=== PATIENT | female | born 1960 | race African-American/Black ===

== ENCOUNTER → 2022-08-11 09:52 | Outpatient (BNVA) | payer OTHER, SELFPAY | PROVIDERS: PCP Internal Medicine; Visit Provider Physician Assistant | DX: Z13.89 Encounter for screening for other disorder (principal) ==

== ENCOUNTER 2022-10-03 21:03 | Inpatient (IN) | payer OTHER, SELFPAY ==
--- NOTE | 2022-10-03 | ECG_ITS ---
Test Reason : htn Blood Pressure : / mmHG Vent. Rate : 070 BPM Atrial Rate : 070 BPM P-R Int : 160 ms QRS Dur : 086 ms QT Int : 408 ms P-R-T Axes : 065 -42 074 degrees QTc Int : 440 ms Poor data quality Normal sinus rhythm Left axis deviation Minimal voltage criteria for LVH, may be normal variant ( R in aVL ) Nonspecific T wave abnormality Abnormal ECG No previous ECGs available Referred By: Farhat Christopher Electronically Signed By:Terence Garcia
[2022-10-03] MEDS: traZODone HCL 50 MG TABLET PO (22:34)
[2022-10-03] MEDS: clonazePAM 0.5 MG TABLET PO (22:34)
[2022-10-03] MEDS: OLANZapine 5 MG TABLET PO (22:34)
[2022-10-03] MEDS: Gabapentin 400 MG CAPSULE PO (22:34)
[2022-10-03] MEDS: Acetaminophen 325 MG TABLET 650 MG PO (22:40)
[2022-10-03 23:06] VITALS: BP 158/85; PULSE 71; RESP 18; TEMP 36.3; O2SAT 97
[2022-10-03 23:07] VITALS: BMI 31.1
--- NOTE | 2022-10-04 00:52 | PC.ADMIT ---
Admitted these 62 yrs. old female per stretcher accompanied by ambulance staff from [facility] w/ presenting problem of suicidal ideation, depression and command auditory hallucinations. She reports experiencing command auditory hallucinations telling her to scratch herself and cut herself . Pt. arrived in the unit at 20:15h and signed the CV. Pt. is oriented to the unit, staff, room and room mate. Skin assessment done w/multiple scab areas to bilateral extremities w/ dressing on and scab area to mid abdomen. Pt has +1 pedal edema. Pt wears eyeglasses for reading and said she has [place] to both ears. Pt denies SOB.Pt. c/o headache and rated it as 8/10, given Tylenol 650 mg w/ some effect, during reassessment pt. said it went down to 3/10. Pt. given also all her HS meds and med compliant. Pt denies SI/HI/anxiety, depression, AVH and feels safe in the unit. Pt is alert and oriented x4, memory appears intact. Pt. has hx. of HTN, CKD, Bilateral Achilles tendonitis, Repeated falls and Psycho genetic non epileptic seizures.Dr.T Christopher informed of the admission w/ orders in.EKG done w/ results in the chart. Pt. maintained on 5 mins. checks. Pt. has allergies to Amoxicillin,Lisinopril, Latex and strawberries.Pt. is pleasant and cooperative w/ admission process and signed all the consents for release of information. We'll continue to monitor patient.
[2022-10-04 06:00] VITALS: BP 128/68; PULSE 71; RESP 18; TEMP 36; O2SAT 97
[2022-10-04 08:50] LABS: Alanine Aminotransferase 36 U/L (0-31); Albumin Level 3.9 g/dL (3.5-5.0); Alkaline Phosphatase 82 U/L (39-117); Anion Gap 15 (12-20); Aspartate Amino Transferase 40 U/L (5-31); Bilirubin Total 0.2 mg/dL (0.0-1.0); Blood Urea Nitrogen 7 mg/dL (9-16); Calcium 9.3 mg/dL (8.4-10.2); Carbon Dioxide 25 mmol/L (22-29); Chloride 109 mmol/L (96-108); Cholesterol 203 mg/dL; Estimated Glomerular Filt Rate 48; Glucose Fasting 96 mg/dL (60-99); HDL Cholesterol 41 mg/dL; LDL Cholesterol Calculated 111 mg/dl; Potassium 4.5 mmol/L (3.3-5.1); Sodium 144 mmol/L (135-145); Total Protein 6.5 g/dL (6.5-8.0); Triglycerides 259 mg/dL
[2022-10-04] MEDS: amLODIPine Besylate 5 MG TABLET PO (09:08)
[2022-10-04] MEDS: clonazePAM 0.5 MG TABLET PO ×3 (09:08→21:32)
[2022-10-04] MEDS: Venlafaxine HCl ER 75 MG CAP.ER.24H PO (09:09)
[2022-10-04] MEDS: Acetaminophen 325 MG TABLET 650 MG PO ×2 (09:09→21:32)
[2022-10-04] MEDS: Gabapentin 400 MG CAPSULE PO ×2 (09:09→21:32)
[2022-10-04 09:16] LABS: TSH reflex Free T4 3.34 uIU/mL (0.32-4.0); Vitamin B12 500 pg/mL (200-900)
[2022-10-04 10:00] VITALS: BP 128/68; PULSE 71; RESP 18; TEMP 36; O2SAT 97
--- NOTE | 2022-10-04 12:07 | P.HPPS_ITS ---
HPI Date of Service: 10/04/22 Chief Complaint: Hallucinations/Psudos Sources of Information: patient interviewed, chart reviewed and crisis/core team assessment reviewed HPI Subjective Notes: Haque Warning and Conditional Voluntary Narrative: The patient is a 62-year-old female, , mother of 2 adult children on disability, living with her with good social support transferred from another hospital for continuation of treatment. The patient was initially admitted the rehab facility and over there she had an episode of fainting and 7 seizures. She was rushed to the emergency room assessed and admitted into Medicine for a full workout. She stayed 16 days at [facility] and whole workout for psychiatry and Medicine was done. There is no evidence of seizures mostly pseudo-seizures. When she was in the unit she reported auditory hallucinations commanding her to hurt herself and exacerbation of depression with suicidal ideation, unable to contract for safety. A Section 12 was issued and a bed search was done, eventually transferred to this facility for psychiatric stabilization. On intake interview, the patient complained that she felt triggered by her who she states that she is an alcoholic. She stated that when she was growing up her father was a violent alcoholic. She admitted that she had been hearing voices for years and she has received several outpatient providers in th e past with several trials of medication. Currently she feels much better, stated that she does not have active suicidal ideation but a sporadic feelings of hurting herself. She refused to give us consent to contact her , she reports improvement of dysphoria and no active auditory hallucinations at this moment. We will try to gather more collateral information. Past Psychiatric History: The patient admitted that her 1st psychiatric contact was 10 years ago and she was eventually diagnosed with bipolar type 2. She had been fully with several outpatient provider such as [facility] and other clinics. 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 Medical Evaluation Reviewed: Yes [facility] Medical History Achilles tendonitis, bilateral Back pain of lumbar region with sciatica Bilateral plantar fasciitis CKD (chronic kidney disease), stage III Depression with anxiety HTN (hypertension) Psychiatric pseudoseizure Diagnostics Vital Signs (24Hr): Vital Signs - 24 hr 10/03/22 23:06 10/04/22 06:00 Temperature 97.3 F 96.8 F Pulse Rate 71 71 Respiratory Rate 18 18 Blood Pressure 158/85 H 128/68 Pulse Oximetry 97 97 Oxygen Delivery Method Room Air Room Air BMI result Body Mass Index 31.1 Labs 10/04/22 08:14 Labs: Laboratory Results - last 48 hr 10/04/22 08:14 Sodium 144 Potassium 4.5 Chloride 109 H Carbon Dioxide 25 Anion Gap 15 BUN 7 L Creatinine 1.15 Estim Creat Clear Calc 50.0 Estimated GFR 48 Fasting Glucose 96 Calcium 9.3 Total Bilirubin 0.2 AST 40 H ALT 36 H Alkaline Phosphatase 82 Total Protein 6.5 Albumin 3.9 Triglycerides 259 Cholesterol 203 LDL Cholesterol, Calc 111 HDL Cholesterol 41 Vitamin B12 500 Folate 11.0 TSH 3.34 Meds/Allergies Allergies Allergies Allergy/AdvReac Type Severity Reaction Status Date / Time lisinopril AdvReac Mild Cough Verified 10/03/22 20:39 amoxicillin AdvReac Diarrhea Verified 10/03/22 20:39 Mental Status Exam Mental Status Exam Patient Appearance: Well Grooomed and Appropriate Patient Orientation: Person, Place and Situation Level of Consciousness: Awake and Appropriate Patient Behavior: Appropriate, Guarded and Passive Mood Description: Withdrawn Affect Description: Constricted Patient Cognition Impaired: Yes Ability to Follow Directions: Good Speech Pattern: Clear Hallucinations: Auditory Delusions: Ideas of Reference Thought Process: Distracted and Linear Thought Content: positive for [place] and positive for Circumstantial Judgement: Poor Assessment & Plan Assessment & Plan (1) Bipolar 2 disorder: Status: Acute Code(s): F31.81 - Bipolar II disorder (2) Personality disorder: Status: Acute Code(s): F60.9 - Personality disorder, unspecified Plan The patient is a middle-aged female with a past history of bipo lar disorder, t.i.d., past trauma depression with several prior admissions into the hospital, transferred from another hospital for pseudoseizures, auditory hallucinations commanding to hurt herself and if progression. Plan 1. Gather collateral information. 2. Continue 50 minutes checks. 3. Continue with Effexor Zyprexa and other psychotropics. 4. Continue medical workout. 5. Reassessment with results. Patient educated on: diagnosis Informed Consent: understands Reason for continued inpatient stay Substantial Risk for: harm to self, inability to function, rapid decompensation and med/psych decompensation Statement Statement: I have reviewed the history and physical and performed a pertinent examination on my patient. No changes have occurred unless specified. If the History and Physical was not performed prior to admission, the Hospitalist's service will be consulted for completing the admission physical. Time Spent With Patient Time: Total time managing care of this patient today __45__ minutes.
[2022-10-04] MEDS: OLANZapine 2.5 MG TABLET PO (12:34)
--- NOTE | 2022-10-04 13:44 | HO.PM.IMCN ---
History of Present Illness Data of Consult Service Date: 10/04/22 Requesting physician: Rock Martinez Primary Care Provider: Shreya Stanley MD [facility] Reason for consult: medical H&P 62 year old female with history of htn, pseudoseizures, depression/anxiety, Achilles tendonitis, plantar fasciitis admitted to psychiatry with consult placed to medicine for medical H&P. She was admitted to [facility] after being discharged from [facility] where she was admitted following a syncopal episode with recurrent falls and concern for seizure. While at [facility], had extensive neuro workup with negative head ct, brain cta, MRI brain, normal eeg. Evaluated by neurology. Clinical picture highly suspicious for pseudoseizures (lasting 30-60 seconds and patient opens eyes and blinks during seizure per [facility] notes). Recommended dc'ing amantadine and depakote, started gabapentin and venlafaxine. She denies any ongoing confusion or seizures. Has a headache. Continues to experience gait imbalance. Refuses to use a walker. She has no other complaints at this time. Review of Systems Review of Systems: General: No fevers, malaise, unintentional weight loss HEENT: No blurred vision, diplopia. No sore throat, nasal congestion, rhinorrhea, sinus pain, ear pain Cardiovascular: No chest pain, palpitations, or leg edema Respiratory: No shortness of breath, wheezing, cough GI: No abdominal pain, nausea, vomiting, diarrhea, constipation, melena, hematochezia : No dysuria, hematuria, increased urinary frequency, decreased urinary output MSK: No myalgia, back pain Neuro: +gait imbalance, +headache. No weakness, paresthesias Skin: No rashes or lesions PENDING SALE TO [facility] Medical History Achilles tendonitis, bilateral Back pain of lumbar region with sciatica Bilateral plantar fasciitis CKD (chronic kidney disease), stage III Depression with anxiety HTN (hypertension) Psychiatric pseudoseizure Social History Household Members: Spouse Housing: House Do you presently have visiting nurse or other home services: No Patient Tobacco Use Status: Never used Tobacco Smoked in Last 30 Days: No Patient Interested in Nicotine Replacement: No Patient Given Instructions on How to Stop Smoking: No Second Hand Smoke Exposure: No Use of substances other than those prescribed or required for medical reasons: No Currently Displaying Signs/Symptoms of Drug Intoxication Withdrawal: No Any prior treatment program specific to substance use: No Have you been hit, kicked, punched, or otherwise hurt by someone within the past year? If so, by whom?: No Do you feel safe in your current relationship?: Yes Is there a partner from a previous relationship who is making you feel unsafe now?: No Are you made to feel afraid or neglected: No Advance Directives: No Advance Directives Information Provided: No Do you have thoughts of harming others: None Do you have a plan to hurt others: No Plan Recently lost weight without trying: No How much weight loss: Not applicable Eating poorly because of decreased appetite: No Nutrition screen score: 0 Nutrition Risks: Binging/Purging Patient : No : No Poor oral hygiene: No Meds Allergies Allergy/AdvReac Type Severity Reaction Status Date / Time lisinopril AdvReac Mild Cough Verified 10/03/22 20:39 amoxicillin AdvReac Diarrhea Verified 10/03/22 20:39 Active Medications: Current Medications Acetaminophen (Acetaminophen 325 Mg Tablet) 650 mg PO Q6H PRN PRN Reason: Headache/Pain Mild Scale (1-3) Last Admin: 10/04/22 09:09 Dose: 650 mg Al Hydroxide/Mg Hydroxide (Magnesium Hydrox/Alum Hydrox 30 Ml Oral.Susp) 30 ml PO Q6H PRN PRN Reason: Heartburn/Nausea Amlodipine Besylate (Amlodipine Besylate 5 Mg Tablet) 5 mg PO DAILY [facility]; Protocol Last Admin: 10/04/22 09:08 Dose: 5 mg Clonazepam (Clonazepam 0.5 Mg Tablet) 0.5 mg PO TID [facility] Last Admin: 10/04/22 09:08 Dose: 0.5 mg Gabapentin (Gabapentin 400 Mg Capsule) 400 mg PO BID [facility] Last Admin: 10/04/22 09:09 Dose: 400 mg Hydroxyzine HCl (Hydroxyzine Hcl 25 Mg Tablet) 25 mg PO Q6H PRN PRN Reason: Anxiety Magnesium Hydroxide (Milk Of Magnesia 30 Ml Oral.Susp) 30 ml PO DAILY PRN PRN Reason: Constipation Olanzapine (Olanzapine 5 Mg Tablet) 5 mg PO BEDTIME [facility] Last Admin: 10/03/22 22:47 Dose: Not Given Olanzapine (Olanzapine 2.5 Mg Tablet) 2.5 mg PO Q6H PRN PRN Reason: Psychosis Last Admin: 10/04/22 12:34 Dose: 2.5 mg Trazodone HCl (Trazodone Hcl 50 Mg Tablet) 50 mg PO BEDTIME [facility] Last Admin: 10/03/22 22:47 Dose: Not Given Venlafaxine HCl (Venlafaxine Hcl Er 75 Mg Cap.Er.24h) 75 mg PO DAILY [facility] Last Admin: 10/04/22 09:09 Dose: 75 mg Physical Exam Vital Signs and Narrative: Vital Signs: Last Vital Signs Temp 96.8 F 10/04/22 10:00 Pulse 71 10/04/22 10:00 Resp 18 10/04/22 10:00 BP 128/68 10/04/22 10:00 Pulse Ox 97 10/04/22 10:00 O2 Del Method Room Air 10/04/22 10:00 BMI result Body Mass Index 31.1 Constitutional - Awake and Alert, No apparent distress Eyes - PERRLA, EOMI Cardiovascular - S1S2, RRR, No edema Respiratory - Normal lung expansion, Normal respiratory effort, No respiratory distress, CTA bilaterally Gastrointestinal - NT / ND; +BS; No rebound or guarding Extremities - no calf tenderness bilaterally, no swelling Musculoskeletal - Normal inspection, normal ROM Skin - Warm/Dry Neurological - Alert & oriented x3, tongue fasciculations, unable to track when examining EOMs , 5/5 strength BUE and BLE Psychological - Appropriate affect Results Labs 10/04/22 08:14 Labs: Laboratory Results - last 24 hr 10/04/22 08:14 Anion Gap 15 Estim Creat Clear Calc 50.0 Estimated GFR 48 Fasting Glucose 96 Calcium 9.3 Total Bilirubin 0.2 AST 40 H ALT 36 H Alkaline Phosphatase 82 Total Protein 6.5 Albumin 3.9 Triglycerides 259 Cholesterol 203 LDL Cholesterol, Calc 111 HDL Cholesterol 41 Vitamin B12 500 Folate 11.0 TSH 3.34 Assessment and Plan (1) Routine medical exam: Status: Acute Plan 62 year old female with history of htn, pseudoseizures, depression/anxiety, Achilles tendonitis, plantar fasciitis admitted to psychiatry with consult placed to medicine for medical H&P. #Mood disorder -plan per psychiatry #Abnormal cranial nerve exam -pt noted to have tongue fasciculations and abn EOMs -States started after new med administration -Concern for TD, psychiatrist notified -Can consider other movement disorder with neurology consult if needed given gait abnormality as well -Head CT and brain MRI both normal at [facility] #Gait imbalance -see above -recommended walker but patient refuses -Recommend PT consult #Pseudoseizures -seizure like activity as outlined in [facility] H&P not consistent with epileptic seizure -Head Ct, brain MRi, EEG WNL -evaluated by neuro at [facility] -Continue venlaxine and gabapenting per neuro recs from [facility] #HTN -continue home meds #Achilles tendonitis/plantar fasciitis -tylenol prn -outpt follow up Thank you for allowing me to participate in this consult. Signing off at this time. Please do not hesitate to call for further questions. Time Spent With Patient Time: Total time managing care of this patient today ____ minutes.
[2022-10-04 19:30] VITALS: BP 125/82; PULSE 85; RESP 18; TEMP 36.1; O2SAT 99
[2022-10-04] MEDS: traZODone HCL 50 MG TABLET PO (21:32)
[2022-10-04] MEDS: OLANZapine 5 MG TABLET PO (21:32)
[2022-10-05 06:00] VITALS: BP 130/80; PULSE 98; RESP 18; TEMP 37; O2SAT 98
[2022-10-05 07:00] VITALS: BMI 30.8
[2022-10-05] MEDS: clonazePAM 0.5 MG TABLET PO ×3 (09:45→21:39)
[2022-10-05] MEDS: Venlafaxine HCl ER 75 MG CAP.ER.24H PO (09:45)
[2022-10-05] MEDS: Gabapentin 400 MG CAPSULE PO ×2 (09:45→21:39)
[2022-10-05] MEDS: Acetaminophen 325 MG TABLET 650 MG PO ×2 (09:48→21:40)
[2022-10-05] MEDS: amantadine HCL 100 MG CAPSULE PO (09:49)
[2022-10-05] MEDS: amLODIPine Besylate 5 MG TABLET PO (09:49)
--- NOTE | 2022-10-05 14:59 | P.PNPSI_ITS ---
Subjective Subjective Date of Service: 10/05/22 Reason For Visit: Hallucinations/Psudos Subjective Notes: Conditional Voluntary Interim History: The nursing staff reported the patient had been alert oriented x4, yesterday her visited and she was later upset with self-harming behavior but easily redirectable. On interview the patient denies new symptoms she is attention seeking at times no suicidal thoughts. WE discussed options and she agreed to increase Zypprexa. Mental Status Exam Mental Status Exam Patient Appearance: Well Grooomed and Appropriate Patient Orientation: Person and Situation Level of Consciousness: Awake and Appropriate Patient Behavior: Guarded and Passive Mood Description: Withdrawn Affect Description: Constricted Patient Cognition Impaired: Yes Ability to Follow Directions: Good Speech Pattern: Clear Hallucinations: None Delusions: Not Present Thought Process: Linear Thought Content: positive for [place] and positive for Circumstantial Judgement: Fair Diagnostics Vital Signs (24Hr): Vital Signs - 24 hr 10/04/22 19:30 10/05/22 06:00 Temperature 96.9 F 98.6 F Pulse Rate 85 98 Respiratory Rate 18 18 Blood Pressure 125/82 130/80 Pulse Oximetry 99 98 Oxygen Delivery Method Room Air Room Air BMI result Body Mass Index 31.1 Labs 10/04/22 08:14 Labs: Laboratory Results - last 48 hr 10/04/22 08:14 Sodium 144 Potassium 4.5 Chloride 109 H Carbon Dioxide 25 Anion Gap 15 BUN 7 L Creatinine 1.15 Estim Creat Clear Calc 50.0 Estimated GFR 48 Fasting Glucose 96 Calcium 9.3 Total Bilirubin 0.2 AST 40 H ALT 36 H Alkaline Phosphatase 82 Total Protein 6.5 Albumin 3.9 Triglycerides 259 Cholesterol 203 LDL Cholesterol, Calc 111 HDL Cholesterol 41 Vitamin B12 500 Folate 11.0 TSH 3.34 Medications Medications Current Medications Acetaminophen (Acetaminophen 325 Mg Tablet) 650 mg PO Q6H PRN PRN Reason: Headache/Pain Mild Scale (1-3) Last Admin: 10/05/22 09:48 Dose: 650 mg Al Hydroxide/Mg Hydroxide (Magnesium Hydrox/Alum Hydrox 30 Ml Oral.Susp) 30 ml PO Q6H PRN PRN Reason: Heartburn/Nausea Amantadine HCl (Amantadine Hcl 100 Mg Capsule) 100 mg PO DAILY [facility] Last Admin: 10/05/22 09:49 Dose: 100 mg Amlodipine Besylate (Amlodipine Besylate 5 Mg Tablet) 5 mg PO DAILY [facility]; Protocol Last Admin: 10/05/22 09:49 Dose: 5 mg Clonazepam (Clonazepam 0.5 Mg Tablet) 0.5 mg PO TID [facility] Last Admin: 10/05/22 09:45 Dose: 0.5 mg Gabapentin (Gabapentin 400 Mg Capsule) 400 mg PO BID [facility] Last Admin: 10/05/22 09:45 Dose: 400 mg Hydroxyzine HCl (Hydroxyzine Hcl 25 Mg Tablet) 25 mg PO Q6H PRN PRN Reason: Anxiety Magnesium Hydroxide (Milk Of Magnesia 30 Ml Oral.Susp) 30 ml PO DAILY PRN PRN Reason: Constipation Olanzapine (Olanzapine 5 Mg Tablet) 5 mg PO BEDTIME [facility] Last Admin: 10/04/22 21:32 Dose: 5 mg Olanzapine (Olanzapine 2.5 Mg Tablet) 2.5 mg PO Q6H PRN PRN Reason: Psychosis Last Admin: 10/04/22 12:34 Dose: 2.5 mg Trazodone HCl (Trazodone Hcl 50 Mg Tablet) 50 mg PO BEDTIME [facility] Last Admin: 10/04/22 21:32 Dose: 50 mg Venlafaxine HCl (Venlafaxine Hcl Er 75 Mg Cap.Er.24h) 75 mg PO DAILY [facility] Last Admin: 10/05/22 09:45 Dose: 75 mg Allergies Allergies Allergy/AdvReac Type Severity Reaction Status Date / Time lisinopril AdvReac Mild Cough Verified 10/03/22 20:39 amoxicillin AdvReac Diarrhea Verified 10/03/22 20:39 Assessment & Plan Assessment & Plan (1) Bipolar 2 disorder: Status: Acute Code(s): F31.81 - Bipolar II disorder (2) Personality disorder: Status: Acute Code(s): F60.9 - Personality disorder, unspecified Plan 62 year old female with history of htn, pseudoseizures, depression/anxiety, Achilles tendonitis, plantar fasciitis admitted to psychiatry with consult placed to medicine for medical H&P. #Mood disorder -plan per psychiatry #Abnormal cranial nerve exam -pt noted to have tongue fasciculations and abn EOMs -States started after new med administration -Concern for TD, psychiatrist notified -Can consider other movement disorder with neurology consult if needed given gait abnormality as well -Head CT and brain MRI both normal at [facility] #Gait imbalance -see above -recommended walker but patient refuses -Recommend PT consult #Pseudoseizures -seizure like activity as outlined in [facility] H&P not consistent with epileptic seizure -Head Ct, brain MRi, EEG WNL -evaluated by neuro at [facility] -Continue venlaxine and gabapenting per neuro recs from [facility] #HTN -continue home meds #Achilles tendonitis/plantar fasciitis -tylenol prn -outpt follow up Thank you for allowing me to participate in this consult. Signing off at this time. Please do not hesitate to call for further questions. Plan: Increase Zyprexa on 10/05 Reason for continued inpatient stay Substantial Risk for: inability to function, rapid decompensation and med/psych decompensation Time Spent With Patient Time: Total time managing care of this patient today __20__ minutes.
[2022-10-05] MEDS: Milk of Magnesia 30 ML ORAL.SUSP PO (17:40)
[2022-10-05 18:00] VITALS: BP 134/91; PULSE 90; RESP 18; TEMP 36.2; O2SAT 98
[2022-10-05] MEDS: OLANZapine 7.5 MG TABLET PO (21:40)
[2022-10-05] MEDS: traZODone HCL 50 MG TABLET PO (21:40)
[2022-10-05] MEDS: hydrOXYzine HCL 25 MG TABLET PO (21:41)
[2022-10-06 08:20] VITALS: BP 125/58; PULSE 74; RESP 18; TEMP 36.6; O2SAT 98
[2022-10-06] MEDS: amantadine HCL 100 MG CAPSULE PO (09:33)
[2022-10-06] MEDS: Venlafaxine HCl ER 75 MG CAP.ER.24H PO (09:33)
[2022-10-06] MEDS: Acetaminophen 325 MG TABLET 650 MG PO ×2 (09:33→17:44)
[2022-10-06] MEDS: Gabapentin 400 MG CAPSULE PO ×2 (09:33→21:08)
[2022-10-06] MEDS: amLODIPine Besylate 5 MG TABLET PO (09:33)
[2022-10-06] MEDS: clonazePAM 0.5 MG TABLET PO ×3 (09:33→21:09)
[2022-10-06] MEDS: OLANZapine 2.5 MG TABLET PO (12:14)
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
[2022-10-06 20:30] VITALS: BP 124/78; PULSE 72; RESP 18; TEMP 36.3; O2SAT 98
[2022-10-06] MEDS: OLANZapine 7.5 MG TABLET PO (21:08)
[2022-10-06] MEDS: traZODone HCL 50 MG TABLET PO (21:09)
[2022-10-07 08:00] VITALS: BP 131/67; PULSE 75; RESP 18; TEMP 36.1; O2SAT 99
[2022-10-07] MEDS: clonazePAM 0.5 MG TABLET PO ×3 (08:00→21:12)
[2022-10-07] MEDS: Venlafaxine HCl ER 75 MG CAP.ER.24H PO (08:00)
[2022-10-07] MEDS: amLODIPine Besylate 5 MG TABLET PO (08:00)
[2022-10-07] MEDS: Gabapentin 400 MG CAPSULE PO ×2 (08:01→21:12)
[2022-10-07] MEDS: amantadine HCL 100 MG CAPSULE PO (08:01)
[2022-10-07] MEDS: Acetaminophen 325 MG TABLET 650 MG PO ×2 (08:19→21:12)
--- NOTE | 2022-10-07 17:21 | HO.PSYCHPN ---
Subjective Subjective Date of Service: 10/07/22 Reason For Visit: Hallucinations/Psudos Subjective Notes: Conditional Voluntary Interim History: Pt reports continues to be a trigger but she wants to be with him. Pt reports tells her she can go home and continue OP tx which pt experiences as minimizing the severity of her depression. We discussed BPD traits in sense of fear of abandonment, not being in center of attention, multiple triggers with self harm behaviors that are not reflection of true suicidality. Review of Systems Review of Systems General: No fevers, malaise, unintentional weight loss HEENT: No blurred vision, diplopia. No sore throat, nasal congestion, rhinorrhea, sinus pain, ear pain Cardiovascular: No chest pain, palpitations, or leg edema Respiratory: No shortness of breath, wheezing, cough GI: No abdominal pain, nausea, vomiting, diarrhea, constipation, melena, hematochezia : No dysuria, hematuria, increased urinary frequency, decreased urinary output MSK: No myalgia, back pain Neuro: +gait imbalance, +headache. No weakness, paresthesias Skin: No rashes or lesions Mental Status Exam Mental Status Exam Patient Appearance: Well Grooomed and Appropriate Patient Orientation: Person and Situation Level of Consciousness: Awake and Appropriate Patient Behavior: Guarded and Passive Mood Description: Withdrawn Affect Description: Constricted Patient Cognition Impaired: Yes Ability to Follow Directions: Good Speech Pattern: Clear Diagnostics Vital Signs (24Hr): Vital Signs - 24 hr 10/06/22 20:30 10/07/22 08:00 Temperature 97.4 F 97.0 F Pulse Rate 72 75 Respiratory Rate 18 18 Blood Pressure 124/78 131/67 Pulse Oximetry 98 99 Oxygen Delivery Method Room Air Room Air BMI result Body Mass Index 30.8 Labs 10/04/22 08:14 Medications Medications Current Medications Acetaminophen (Acetaminophen 325 Mg Tablet) 650 mg PO Q6H PRN PRN Reason: Headache/Pain Mild Scale (1-3) Last Admin: 10/07/22 08:19 Dose: 650 mg Al Hydroxide/Mg Hydroxide (Magnesium Hydrox/Alum Hydrox 30 Ml Oral.Susp) 30 ml PO Q6H PRN PRN Reason: Heartburn/Nausea Amantadine HCl (Amantadine Hcl 100 Mg Capsule) 100 mg PO DAILY [facility] Last Admin: 10/07/22 08:01 Dose: 100 mg Amlodipine Besylate (Amlodipine Besylate 5 Mg Tablet) 5 mg PO DAILY [facility]; Protocol Last Admin: 10/07/22 08:00 Dose: 5 mg Clonazepam (Clonazepam 0.5 Mg Tablet) 0.5 mg PO TID [facility] Last Admin: 10/07/22 14:33 Dose: 0.5 mg Gabapentin (Gabapentin 400 Mg Capsule) 400 mg PO BID [facility] Last Admin: 10/07/22 08:01 Dose: 400 mg Hydroxyzine HCl (Hydroxyzine Hcl 25 Mg Tablet) 25 mg PO Q6H PRN PRN Reason: Anxiety Last Admin: 10/05/22 21:41 Dose: 25 mg Magnesium Hydroxide (Milk Of Magnesia 30 Ml Oral.Susp) 30 ml PO DAILY PRN PRN Reason: Constipation Last Admin: 10/05/22 17:40 Dose: 30 ml Olanzapine (Olanzapine 2.5 Mg Tablet) 2.5 mg PO Q6H PRN PRN Reason: Psychosis Last Admin: 10/06/22 12:14 Dose: 2.5 mg Olanzapine (Olanzapine 7.5 Mg Tablet) 7.5 mg PO BEDTIME [facility] Last Admin: 10/06/22 21:08 Dose: 7.5 mg Trazodone HCl (Trazodone Hcl 50 Mg Tablet) 50 mg PO BEDTIME [facility] Last Admin: 10/06/22 21:09 Dose: 50 mg Venlafaxine HCl (Venlafaxine Hcl Er 75 Mg Cap.Er.24h) 75 mg PO DAILY [facility] Last Admin: 10/07/22 08:00 Dose: 75 mg Allergies Allergies Allergy/AdvReac Type Severity Reaction Status Date / Time lisinopril AdvReac Mild Cough Verified 10/03/22 20:39 amoxicillin AdvReac Diarrhea Verified 10/03/22 20:39 Assessment & Plan Assessment & Plan (1) Bipolar 2 disorder: Status: Acute Code(s): F31.81 - Bipolar II disorder (2) Personality disorder: Status: Acute Code(s): F60.9 - Personality disorder, unspecified Plan 62 year old female with history of htn, pseudoseizures, depression/anxiety, Achilles tendonitis, plantar fasciitis admitted to psychiatry with consult placed to medicine for medical H&P. #Mood disorder -plan per psychiatry #Abnormal cranial nerve exam -pt noted to have tongue fasciculations and abn EOMs -States started after new med administration -Concern for TD, psychiatrist notified -Can consider other movement disorder with neurology consult if needed given gait abnormality as well -Head CT and brain MRI both normal at [facility] #Gait imbalance -see above -recommended walker but patient refuses -Recommend PT consult #Pseudoseizures -seizure like activity as outlined in [facility] H&P not consistent with epileptic seizure -Head Ct, brain MRi, EEG WNL -evaluated by neuro at [facility] -Continue venlaxine and gabapenting per neuro recs from [facility] #HTN -continue home meds #Achilles tendonitis/plantar fasciitis -tylenol prn -outpt follow up Thank you for allowing me to participate in this consult. Signing off at this time. Please do not hesitate to call for further questions. Plan: 10/06 continue tx. 10/07 continue tx. Reason for continued inpatient stay Substantial Risk for: inability to function Time Spent With Patient Time: Total time managing care of this patient today ____ minutes.
[2022-10-07 19:30] VITALS: BP 160/75; PULSE 77; RESP 18; TEMP 36.2; O2SAT 98
[2022-10-07] MEDS: traZODone HCL 50 MG TABLET PO (21:12)
[2022-10-07] MEDS: OLANZapine 7.5 MG TABLET PO (21:12)
[2022-10-08 08:15] VITALS: BP 128/67; PULSE 86; RESP 20; TEMP 36.1; O2SAT 96
[2022-10-08] MEDS: amLODIPine Besylate 5 MG TABLET PO (08:17)
[2022-10-08] MEDS: Venlafaxine HCl ER 75 MG CAP.ER.24H PO (08:17)
[2022-10-08] MEDS: amantadine HCL 100 MG CAPSULE PO (08:18)
[2022-10-08] MEDS: clonazePAM 0.5 MG TABLET PO ×2 (08:18→16:17)
[2022-10-08] MEDS: Gabapentin 400 MG CAPSULE PO ×2 (08:18→21:38)
[2022-10-08] MEDS: Acetaminophen 325 MG TABLET 650 MG PO ×2 (09:07→21:38)
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
[2022-10-08 20:14] VITALS: BP 139/79; PULSE 65; RESP 16; TEMP 36.2; O2SAT 97
[2022-10-08] MEDS: OLANZapine 7.5 MG TABLET PO (21:38)
[2022-10-08] MEDS: traZODone HCL 50 MG TABLET PO (21:39)
[2022-10-09 08:25] VITALS: BP 156/69; PULSE 109; RESP 16; TEMP 36.2; O2SAT 97
[2022-10-09] MEDS: amantadine HCL 100 MG CAPSULE PO (09:01)
[2022-10-09] MEDS: Venlafaxine HCl ER 75 MG CAP.ER.24H PO (09:01)
[2022-10-09] MEDS: Gabapentin 400 MG CAPSULE PO ×2 (09:01→21:36)
[2022-10-09] MEDS: amLODIPine Besylate 5 MG TABLET PO (09:01)
[2022-10-09] MEDS: Acetaminophen 325 MG TABLET 650 MG PO ×2 (09:05→21:36)
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
[2022-10-09] MEDS: OLANZapine 7.5 MG TABLET PO (21:35)
[2022-10-09] MEDS: traZODone HCL 50 MG TABLET PO (21:35)
[2022-10-09] MEDS: hydrOXYzine HCL 25 MG TABLET PO (23:21)
[2022-10-10 06:00] VITALS: BP 128/62; PULSE 82; RESP 16; TEMP 36.4; O2SAT 95
[2022-10-10] MEDS: amantadine HCL 100 MG CAPSULE PO (08:09)
[2022-10-10] MEDS: amLODIPine Besylate 5 MG TABLET PO (08:09)
[2022-10-10] MEDS: Gabapentin 400 MG CAPSULE PO ×2 (08:09→21:32)
[2022-10-10] MEDS: Venlafaxine HCl ER 75 MG CAP.ER.24H PO (08:09)
[2022-10-10] MEDS: Acetaminophen 325 MG TABLET 650 MG PO ×2 (08:09→21:37)
--- NOTE | 2022-10-10 11:27 | P.PNPSI_ITS ---
Subjective Subjective Date of Service: 10/10/22 Reason For Visit: Hallucinations/Psudos Subjective Notes: Conditional Voluntary Interim History: The nursing staff reported the patient had been common pleasant, reports anxiety and depression but no suicidal ideation. Her attention seeking behavior has lowered and she looks more cooperative and calm on groups. The occupational therapist reported that her performance in groups is good. The social work instructor reported that she was referred to pace program so she can have more ancillary services in the community. Yesterday she sign a consent to contact her will do a family meeting pretty soon. On interview the patient denies new symptoms she reports anxiety and depression we discussed options and she agreed to do the change below. Mental Status Exam Mental Status Exam Patient Appearance: Well Grooomed and Appropriate Patient Orientation: Person and Situation Level of Consciousness: Awake and Appropriate Patient Behavior: Guarded and Passive Mood Description: Withdrawn and Constricted Affect Description: Calm Patient Cognition Impaired: Yes Ability to Follow Directions: Good Speech Pattern: Clear Hallucinations: None Delusions: Not Present Thought Process: Distracted and Linear Thought Content: positive for [place] Judgement: Fair Diagnostics Vital Signs (24Hr): Vital Signs - 24 hr 10/10/22 06:00 Temperature 97.6 F Pulse Rate 82 Respiratory Rate 16 Blood Pressure 128/62 Pulse Oximetry 95 Oxygen Delivery Method Room Air BMI result Body Mass Index 30.8 Labs 10/04/22 08:14 Medications Medications Current Medications Acetaminophen (Acetaminophen 325 Mg Tablet) 650 mg PO Q6H PRN PRN Reason: Headache/Pain Mild Scale (1-3) Last Admin: 10/10/22 08:09 Dose: 650 mg Al Hydroxide/Mg Hydroxide (Magnesium Hydrox/Alum Hydrox 30 Ml Oral.Susp) 30 ml PO Q6H PRN PRN Reason: Heartburn/Nausea Amantadine HCl (Amantadine Hcl 100 Mg Capsule) 100 mg PO DAILY [facility] Last Admin: 10/10/22 08:09 Dose: 100 mg Amlodipine Besylate (Amlodipine Besylate 5 Mg Tablet) 5 mg PO DAILY [facility]; Protocol Last Admin: 10/10/22 08:09 Dose: 5 mg Gabapentin (Gabapentin 400 Mg Capsule) 400 mg PO BID [facility] Last Admin: 10/10/22 08:09 Dose: 400 mg Hydroxyzine HCl (Hydroxyzine Hcl 25 Mg Tablet) 25 mg PO Q6H PRN PRN Reason: Anxiety Last Admin: 10/09/22 23:21 Dose: 25 mg Magnesium Hydroxide (Milk Of Magnesia 30 Ml Oral.Susp) 30 ml PO DAILY PRN PRN Reason: Constipation Last Admin: 10/05/22 17:40 Dose: 30 ml Olanzapine (Olanzapine 2.5 Mg Tablet) 2.5 mg PO Q6H PRN PRN Reason: Psychosis Last Admin: 10/06/22 12:14 Dose: 2.5 mg Olanzapine (Olanzapine 7.5 Mg Tablet) 7.5 mg PO BEDTIME [facility] Last Admin: 10/09/22 21:35 Dose: 7.5 mg Trazodone HCl (Trazodone Hcl 50 Mg Tablet) 50 mg PO BEDTIME [facility] Last Admin: 10/09/22 21:35 Dose: 50 mg Venlafaxine HCl (Venlafaxine Hcl Er 75 Mg Cap.Er.24h) 75 mg PO DAILY [facility] Last Admin: 10/10/22 08:09 Dose: 75 mg Allergies Allergies Allergy/AdvReac Type Severity Reaction Status Date / Time lisinopril AdvReac Mild Cough Verified 10/03/22 20:39 amoxicillin AdvReac Diarrhea Verified 10/03/22 20:39 Assessment & Plan Assessment & Plan (1) Bipolar 2 disorder: Status: Acute Code(s): F31.81 - Bipolar II disorder (2) Personality disorder: Status: Acute Code(s): F60.9 - Personality disorder, unspecified Plan 62 year old female with history of htn, pseudoseizures, depression/anxiety, Achilles tendonitis, plantar fasciitis admitted to psychiatry with consult placed to medicine for medical H&P. #Mood disorder -plan per psychiatry #Abnormal cranial nerve exam -pt noted to have tongue fasciculations and abn EOMs -States started after new med administration -Concern for TD, psychiatrist notified -Can consider other movement disorder with neurology consult if needed given gait abnormality as well -Head CT and brain MRI both normal at [facility] #Gait imbalance -see above -recommended walker but patient refuses -Recommend PT consult #Pseudoseizures -seizure like activity as outlined in [facility] H&P not consistent with epileptic seizure -Head Ct, brain MRi, EEG WNL -evaluated by neuro at [facility] -Continue venlaxine and gabapenting per neuro recs from [facility] #HTN -continue home meds #Achilles tendonitis/plantar fasciitis -tylenol prn -outpt follow up Thank you for allowing me to participate in this consult. Signing off at this time. Please do not hesitate to call for further questions. Plan: 1. Continue with Zyprexa, Effexor and other psychotropics. 2. We will try to gather collateral information, now we have authorization to contact her . 3. Working for proper safe discharge plan. On October 09 the patient signed a consent to release information with her so we can gather more collateral. 4. Increased Effexor up to 150 mg p.o. daily to target depression and anxiety. Reason for continued inpatient stay Substantial Risk for: inability to function, rapid decompensation and med/psych decompensation Time Spent With Patient Time: Total time managing care of this patient today __20__ minutes.
[2022-10-10] MEDS: traZODone HCL 50 MG TABLET PO (21:32)
[2022-10-10] MEDS: OLANZapine 7.5 MG TABLET PO (21:32)
[2022-10-11 08:35] VITALS: BP 137/91; PULSE 121; RESP 16; TEMP 36; O2SAT 97
[2022-10-11] MEDS: amantadine HCL 100 MG CAPSULE PO (09:17)
[2022-10-11] MEDS: amLODIPine Besylate 5 MG TABLET PO (09:17)
[2022-10-11] MEDS: Acetaminophen 325 MG TABLET 650 MG PO ×2 (09:17→21:57)
[2022-10-11] MEDS: Gabapentin 400 MG CAPSULE PO ×2 (09:17→21:58)
[2022-10-11] MEDS: Venlafaxine HCl ER 150 MG CAP.ER.24H PO (09:18)
--- NOTE | 2022-10-11 14:16 | HO.PSYCHPN ---
Subjective Subjective Date of Service: 10/11/22 Reason For Visit: Hallucinations/Psudos Subjective Notes: Conditional Voluntary Interim History: The nursing staff reported that the patient had been compliant with treatment, but she refused Norvasc. She slept well she reports mild anxiety. On interview the patient denies side effects with increase of Effexor XR up to 150 mg p.o. to target depression and anxiety. No active suicidal ideation. Mental Status Exam Mental Status Exam Patient Appearance: Well Grooomed and Appropriate Patient Orientation: Person and Situation Level of Consciousness: Awake and Appropriate Patient Behavior: Appropriate and Cooperative Mood Description: Withdrawn Affect Description: Constricted Patient Cognition Impaired: Yes Ability to Follow Directions: Good Speech Pattern: Clear Hallucinations: None Delusions: Not Present Thought Process: Linear Thought Content: positive for [place] and positive for [place] of Content Judgement: Fair Diagnostics Vital Signs (24Hr): BMI result Body Mass Index 30.8 Labs 10/04/22 08:14 Medications Medications Current Medications Acetaminophen (Acetaminophen 325 Mg Tablet) 650 mg PO Q6H PRN PRN Reason: Headache/Pain Mild Scale (1-3) Last Admin: 10/11/22 09:17 Dose: 650 mg Al Hydroxide/Mg Hydroxide (Magnesium Hydrox/Alum Hydrox 30 Ml Oral.Susp) 30 ml PO Q6H PRN PRN Reason: Heartburn/Nausea Amantadine HCl (Amantadine Hcl 100 Mg Capsule) 100 mg PO DAILY [facility] Last Admin: 10/11/22 09:17 Dose: 100 mg Amlodipine Besylate (Amlodipine Besylate 5 Mg Tablet) 5 mg PO DAILY [facility]; Protocol Last Admin: 10/11/22 09:17 Dose: 5 mg Gabapentin (Gabapentin 400 Mg Capsule) 400 mg PO BID [facility] Last Admin: 10/11/22 09:17 Dose: 400 mg Hydroxyzine HCl (Hydroxyzine Hcl 25 Mg Tablet) 25 mg PO Q6H PRN PRN Reason: Anxiety Last Admin: 10/09/22 23:21 Dose: 25 mg Magnesium Hydroxide (Milk Of Magnesia 30 Ml Oral.Susp) 30 ml PO DAILY PRN PRN Reason: Constipation Last Admin: 10/05/22 17:40 Dose: 30 ml Olanzapine (Olanzapine 2.5 Mg Tablet) 2.5 mg PO Q6H PRN PRN Reason: Psychosis Last Admin: 10/06/22 12:14 Dose: 2.5 mg Olanzapine (Olanzapine 7.5 Mg Tablet) 7.5 mg PO BEDTIME [facility] Last Admin: 10/10/22 21:32 Dose: 7.5 mg Trazodone HCl (Trazodone Hcl 50 Mg Tablet) 50 mg PO BEDTIME [facility] Last Admin: 10/10/22 21:32 Dose: 50 mg Venlafaxine HCl (Venlafaxine Hcl Er 150 Mg Cap.Er.24h) 150 mg PO DAILY [facility] Last Admin: 10/11/22 09:18 Dose: 150 mg Allergies Allergies Allergy/AdvReac Type Severity Reaction Status Date / Time lisinopril AdvReac Mild Cough Verified 10/03/22 20:39 amoxicillin AdvReac Diarrhea Verified 10/03/22 20:39 Assessment & Plan Assessment & Plan (1) Bipolar 2 disorder: Status: Acute Code(s): F31.81 - Bipolar II disorder (2) Personality disorder: Status: Acute Code(s): F60.9 - Personality disorder, unspecified Plan 62 year old female with history of htn, pseudoseizures, depression/anxiety, Achilles tendonitis, plantar fasciitis admitted to psychiatry with consult placed to medicine for medical H&P. #Mood disorder -plan per psychiatry #Abnormal cranial nerve exam -pt noted to have tongue fasciculations and abn EOMs -States started after new med administration -Concern for TD, psychiatrist notified -Can consider other movement disorder with neurology consult if needed given gait abnormality as well -Head CT and brain MRI both normal at [facility] #Gait imbalance -see above -recommended walker but patient refuses -Recommend PT consult #Pseudoseizures -seizure like activity as outlined in [facility] H&P not consistent with epileptic seizure -Head Ct, brain MRi, EEG WNL -evaluated by neuro at [facility] -Continue venlaxine and gabapenting per neuro recs from [facility] #HTN -continue home meds #Achilles tendonitis/plantar fasciitis -tylenol prn -outpt follow up Thank you for allowing me to participate in this consult. Signing off at this time. Please do not hesitate to call for further questions. Plan: 1. Continue with Zyprexa, Effexor and other psychotropics. 2. We will try to gather collateral information, now we have authorization to contact her . 3. Working for proper safe discharge plan. On October 09 the patient signed a consent to release information with her so we can gather more collateral. 4. Increased Effexor up to 150 mg p.o. daily to target depression and anxiety. 5. Family meeting with her today and the social work professor for discharge planning. Reason for continued inpatient stay Substantial Risk for: inability to function, rapid decompensation and med/psych decompensation Time Spent With Patient Time: Total time managing care of this patient today ____ minutes.
[2022-10-11 18:00] VITALS: BP 142/72; PULSE 82; RESP 16; TEMP 35.8; O2SAT 97
[2022-10-11] MEDS: OLANZapine 7.5 MG TABLET PO (21:57)
[2022-10-11] MEDS: traZODone HCL 50 MG TABLET PO (21:58)
[2022-10-12 09:10] VITALS: BP 136/80; PULSE 88; RESP 18; TEMP 36.1; O2SAT 96
[2022-10-12] MEDS: amantadine HCL 100 MG CAPSULE PO (09:16)
[2022-10-12] MEDS: Venlafaxine HCl ER 150 MG CAP.ER.24H PO (09:16)
[2022-10-12] MEDS: Gabapentin 400 MG CAPSULE PO ×2 (09:17→21:05)
[2022-10-12] MEDS: Acetaminophen 325 MG TABLET 650 MG PO ×2 (09:21→20:00)
--- NOTE | 2022-10-12 15:25 | HO.PSYCHPN ---
Subjective Subjective Date of Service: 10/12/22 Reason For Visit: Hallucinations/Psudos Subjective Notes: Conditional Voluntary Interim History: The nursing staff reported the patient had been compliant with treatment, no side effects. Vital signs have not shown any changes. On interview the patient denies side effects with increase of 5 Effexor she denies suicidal or homicidal thoughts able to participate well in groups. No safety concerns we will schedule discharge for tomorrow. Mental Status Exam Mental Status Exam Patient Appearance: Well Grooomed and Appropriate Patient Orientation: Person and Situation Level of Consciousness: Awake and Appropriate Patient Behavior: Guarded and Passive Mood Description: Withdrawn and Constricted Affect Description: Calm Patient Cognition Impaired: Yes Ability to Follow Directions: Good Speech Pattern: Clear Hallucinations: None Delusions: Not Present Thought Process: Distracted and Linear Thought Content: positive for [place] and positive for Circumstantial Judgement: Fair Diagnostics Vital Signs (24Hr): Vital Signs - 24 hr 10/11/22 18:00 10/12/22 09:10 Temperature 96.5 F L 96.9 F Pulse Rate 82 88 Respiratory Rate 16 18 Blood Pressure 142/72 H 136/80 Pulse Oximetry 97 96 Oxygen Delivery Method Room Air Room Air BMI result Body Mass Index 30.8 Labs 10/04/22 08:14 Medications Medications Current Medications Acetaminophen (Acetaminophen 325 Mg Tablet) 650 mg PO Q6H PRN PRN Reason: Headache/Pain Mild Scale (1-3) Last Admin: 10/12/22 09:21 Dose: 650 mg Al Hydroxide/Mg Hydroxide (Magnesium Hydrox/Alum Hydrox 30 Ml Oral.Susp) 30 ml PO Q6H PRN PRN Reason: Heartburn/Nausea Amantadine HCl (Amantadine Hcl 100 Mg Capsule) 100 mg PO DAILY [facility] Last Admin: 10/12/22 09:16 Dose: 100 mg Gabapentin (Gabapentin 400 Mg Capsule) 400 mg PO BID [facility] Last Admin: 10/12/22 09:17 Dose: 400 mg Hydroxyzine HCl (Hydroxyzine Hcl 25 Mg Tablet) 25 mg PO Q6H PRN PRN Reason: Anxiety Last Admin: 10/09/22 23:21 Dose: 25 mg Magnesium Hydroxide (Milk Of Magnesia 30 Ml Oral.Susp) 30 ml PO DAILY PRN PRN Reason: Constipation Last Admin: 10/05/22 17:40 Dose: 30 ml Olanzapine (Olanzapine 2.5 Mg Tablet) 2.5 mg PO Q6H PRN PRN Reason: Psychosis Last Admin: 10/06/22 12:14 Dose: 2.5 mg Olanzapine (Olanzapine 7.5 Mg Tablet) 7.5 mg PO BEDTIME [facility] Last Admin: 10/11/22 21:57 Dose: 7.5 mg Spironolactone (Spironolactone 25 Mg Tablet) 12.5 mg PO DAILY [facility]; Protocol Trazodone HCl (Trazodone Hcl 50 Mg Tablet) 50 mg PO BEDTIME [facility] Last Admin: 10/11/22 21:58 Dose: 50 mg Venlafaxine HCl (Venlafaxine Hcl Er 150 Mg Cap.Er.24h) 150 mg PO DAILY [facility] Last Admin: 10/12/22 09:16 Dose: 150 mg Allergies Allergies Allergy/AdvReac Type Severity Reaction Status Date / Time lisinopril AdvReac Mild Cough Verified 10/03/22 20:39 amoxicillin AdvReac Diarrhea Verified 10/03/22 20:39 Assessment & Plan Assessment & Plan (1) Bipolar 2 disorder: Status: Acute Code(s): F31.81 - Bipolar II disorder (2) Personality disorder: Status: Acute Code(s): F60.9 - Personality disorder, unspecified Plan 62 year old female with history of htn, pseudoseizures, depression/anxiety, Achilles tendonitis, plantar fasciitis admitted to psychiatry with consult placed to medicine for medical H&P. #Mood disorder -plan per psychiatry #Abnormal cranial nerve exam -pt noted to have tongue fasciculations and abn EOMs -States started after new med administration -Concern for TD, psychiatrist notified -Can consider other movement disorder with neurology consult if needed given gait abnormality as well -Head CT and brain MRI both normal at [facility] #Gait imbalance -see above -recommended walker but patient refuses -Recommend PT consult #Pseudoseizures -seizure like activity as outlined in [facility] H&P not consistent with epileptic seizure -Head Ct, brain MRi, EEG WNL -evaluated by neuro at [facility] -Continue venlaxine and gabapenting per neuro recs from [facility] #HTN -continue home meds #Achilles tendonitis/plantar fasciitis -tylenol prn -outpt follow up Thank you for allowing me to participate in this consult. Signing off at this time. Please do not hesitate to call for further questions. Plan: 1. Continue with Zyprexa, Effexor and other psychotropics. 2. We will try to gather collateral information, now we have authorization to contact her . 3. Working for proper safe discharge plan. On October 09 the patient signed a consent to release information with her so we can gather more collateral. 4. Increased Effexor up to 150 mg p.o. daily to target depression and anxiety. 5. Family meeting with her today and the social worker aide for discharge planning. 6. Discharge for tomorrow Reason for continued inpatient stay Substantial Risk for: inability to function, rapid decompensation and med/psych decompensation Time Spent With Patient Time: Total time managing care of this patient today __20__ minutes.
[2022-10-12 15:48] VITALS: BMI 31.5
[2022-10-12 18:00] VITALS: BP 170/76; PULSE 76; RESP 18; TEMP 36.2; O2SAT 98
[2022-10-12] MEDS: traZODone HCL 50 MG TABLET PO (21:04)
[2022-10-12] MEDS: OLANZapine 7.5 MG TABLET PO (21:04)
[2022-10-12 21:35] VITALS: BP 140/77; PULSE 88
--- NOTE | 2022-10-13 08:20 | PM.PSYDC ---
DS: Providers Provider Date of Service: 10/13/22 Date of admission: 10/03/22 21:03 Date of discharge: 10/13/22 Primary care physician: Shreya Stanley MD Consults: 10/03/22 20:28 Consult to Hospitalist Routine Comment: Consulting Provider: Hospitalist Reason For Exam: htn pseudosz recent confusion adm history DS: Diagnosis Discharge Diagnosis (1) Bipolar 2 disorder: Status: Acute (2) Personality disorder: Status: Acute DS: Medications Discharge Medications Home Medications: Previous Rx's Medication Instructions Recorded acetaminophen 325 mg tablet 650 mg PO Q6H PRN Headache/Pain 10/12/22 Mild Scale (1-3) 30 days #60 tabs amantadine HCl 100 mg capsule 100 mg PO DAILY 30 days #30 caps 10/12/22 gabapentin 400 mg capsule 400 mg PO BID 30 days #60 caps 10/12/22 hydroxyzine HCl 25 mg tablet 25 mg PO Q6H PRN Anxiety 30 days 10/12/22 #30 tabs olanzapine 7.5 mg tablet 7.5 mg PO BEDTIME 30 days #30 tabs 10/12/22 spironolactone 25 mg tablet 12.5 mg PO DAILY 30 days #15 tabs 10/12/22 trazodone 50 mg tablet 50 mg PO BEDTIME 30 days #30 tabs 10/12/22 venlafaxine 150 mg 150 mg PO DAILY 30 days #30 caps 10/12/22 capsule,extended release 24 hr Mental Status Exam Mental Status Exam Patient Appearance: Well Grooomed and Appropriate Patient Orientation: Person and Situation Level of Consciousness: Awake and Appropriate Patient Behavior: Guarded and Passive Mood Description: Calm Affect Description: Constricted Patient Cognition Impaired: No Ability to Follow Directions: Good Speech Pattern: Clear Hallucinations: None Delusions: Not Present Thought Process: Linear Thought Content: positive for Circumstantial Judgement: Fair DS: Summary Hospital Course Hospital Course: The patient was transferred to this facility from another hospital after being fully medically workout for pseudoseizures. The patient carries a diagnosis of major depressive disorder, personality disorder NOS and anxiety. Please see the HPI of the admission note for further details. On intake interview the patient reported exacerbation of depression, feeling trigger by her that now his retired. She reported sporadic auditory hallucinations and dysphoria. Initially we titrated up Zyprexa up to 7.5 mg p.o. q.h.s. to target psychotic symptoms with for improvement and no evidence of side effects. Even though, the patient reported symptoms of depression so we increased Effexor XR up to 150 mg with good tolerability. The patient was able to participate in groups, at the beginning she was attention seeking but easily redirectable. Initially she refused to give us permission to contact her but later on she gave us the permission and we contact her and gather collateral information. Ancillary services were provided and since there were no safety concerns discharge planning was discussed. Time spent discussing smoking cessation with patient: 3 to 10 minutes Status at Discharge Cognitive/behavioral status at discharge: At baseline Functional status at discharge: independent ambulation Overall status at discharge: patient is back to baseline Time Spent with Patient Time attestation: Total time managing care of this patient today _30___ minutes. Time spent: Less than 30 minutes Discharge Plan Discharge Anticipated Discharge Date/Time: 10/13/22 10:00 Patient Disposition: Home, Self-Care Discharge Diagnosis: Bipolar disorder most recent episode depressed. Personality disorder NOS Pseudo-seizures Referrals: Becky Valencia - Psych-HOTEL ADMINISTRATIVE ASSISTANT [Other] - 11/22/22 3:00 pm (Appoitment scheduled for: 11/22/2022 @ 3pm - IN-person ) Dr. Lucy Head - Therapist [Other] - 10/17/22 2:00 pm (Appointment Scheduled for: 10/17/2022 @ 2pm ) Shreya Stanley MD [Primary Care Provider] - 10/20/22 10:30 am Discharge Medications: New spironolactone 25 mg Tablet 12.5 mg PO DAILY 30 Days Qty: 15 0RF Protocol: Hold for SBP< HOLD for SBP < : 90 acetaminophen 325 mg Tablet 650 mg PO Q6H PRN (Reason: Headache/Pain Mild Scale (1-3)) 30 Days Qty: 60 0RF trazodone 50 mg Tablet 50 mg PO BEDTIME 30 Days Qty: 30 0RF gabapentin 400 mg Capsule 400 mg PO BID 30 Days Qty: 60 0RF venlafaxine 150 mg Capsule,Extended Release 24hr 150 mg PO DAILY 30 Days Qty: 30 0RF olanzapine 7.5 mg Tablet 7.5 mg PO BEDTIME 30 Days Qty: 30 0RF amantadine HCl 100 mg Capsule 100 mg PO DAILY 30 Days Qty: 30 0RF hydroxyzine HCl 25 mg Tablet 25 mg PO Q6H PRN (Reason: Anxiety) 30 Days Qty: 30 0RF Discharge Orders: Discharge Order (Routine); Ordered 10/13/22 Ordered By: Rock Martinez Diet: Advance to usual diet Activity on Discharge: As tolerated Stand Alone Forms: Patient Portal Discharge page Care Plan Goals: Care plan goals achieved in this admission Health Concerns: Continue treatment by outpatient provider Plan of Treatment: Continue medication management and psychotherapy Assessment: Middle-aged female with a long history of bipolar type 2 admitted for exacerbation of depression in the context of new psychosocial stressors. Also she presented with pseudoseizures that were not evident that the discharge. Since there were no safety concerns discharge planning was discussed.
[2022-10-13 08:30] VITALS: BP 129/68; PULSE 96; RESP 18; TEMP 36.4; O2SAT 97
[2022-10-13] MEDS: amantadine HCL 100 MG CAPSULE PO (08:36)
[2022-10-13] MEDS: Acetaminophen 325 MG TABLET 650 MG PO (08:37)
[2022-10-13] MEDS: Gabapentin 400 MG CAPSULE PO (08:39)
[2022-10-13] MEDS: Spironolactone 25 MG TABLET PO (08:55)
== END 2022-10-13 11:13 | disposition home or self-care (01) | DRG 885 ==
PROVIDERS: Psychiatry & Neurology Psychiatry; Admitting Provider Psychiatry & Neurology Psychiatry; PCP Internal Medicine; Visit Provider Psychiatry & Neurology Psychiatry
DX: F31.81 Bipolar II disorder (principal); F60.9 Personality disorder, unspecified; I12.9 Hypertensive chronic kidney disease with stage 1 through stage 4 chronic kidney disease, or unspecified chronic kidney disease; N18.30 Chronic kidney disease, stage 3 unspecified; M76.62 Achilles tendinitis, left leg; R56.9 Unspecified convulsions; M76.61 Achilles tendinitis, right leg; M72.2 Plantar fascial fibromatosis; Z91.52 Personal history of nonsuicidal self-harm; Z79.899 Other long term (current) drug therapy
CPT/HCPCS: 36415; 80053; 80061; 82607; 82746; 84443; 93005

== ENCOUNTER 2022-10-24 18:29 | Outpatient (REF) | payer OTHER, SELFPAY ==
--- NOTE | ~2022-10-24 | MR_ITS ---
EXAMINATION: MR LUMBAR SPINE WITHOUT CONTRAST CLINICAL INFORMATION: Back pain, sciatica COMPARISON: None TECHNIQUE: MRI of the lumbar spine was obtained using routine sequences without contrast. FINDINGS: Motion degraded examination Normal anatomic alignment. No suspicious marrow signal or focal osseous lesion. Type II predominant endplate marrow signal changes at T11-T12, L3-L4, L4-L5. There is also some mild endplate marrow edema at L4-L5 .L4 inferior endplate Schmorl's node. The vertebral body heights are maintained. Disc desiccation and height loss involving the lower thoracic spine and from L3-L4 to L5-S1. The conus medullaris terminates at the level of L1-L2. The distal spinal cord is normal in appearance. The cauda equina nerve roots appear normal. No significant abnormalities of the paraspinal musculature. Limited evaluation of the intra-abdominal structures without significant abnormalities. The abdominal aorta is of normal contour and caliber. SPINAL LEVELS: L1-L2: No significant spinal canal or neuroforaminal narrowing. L2-L3: No significant spinal canal or neuroforaminal narrowing. L3-L4: Shallow disc bulge and mild facet arthropathy with small left joint effusion. Endplate thickening. No significant central spinal canal stenosis. Suggestion of mild bilateral neural foraminal narrowing L4-L5: Shallow disc bulge, facet arthropathy, ligamentum flavum thickening. No significant central spinal canal stenosis. Bilateral subarticular zone narrowing and suggestion of mild bilateral neural foraminal narrowing. L5-S1: No significant spinal canal or neuroforaminal narrowing. Mild facet arthropathy MR/MR lumbar spine wo con IMPRESSION: Motion degraded examination. Mild degenerative changes of the lumbar spine without significant central spinal canal stenosis or high-grade neural foraminal narrowing. There is bilateral subarticular zone narrowing at L4-L5 and suggestion of mild bilateral neural foraminal narrowing at L3-L4 and L4-L5.
== END 2022-10-24 18:30 | disposition home or self-care (01) ==
LOC: HO.MRI 18:29
PROVIDERS: PCP Internal Medicine; Visit Provider Physician Assistant
DX: M54.40 Lumbago with sciatica, unspecified side (principal)
CPT/HCPCS: 72148

== ENCOUNTER 2022-11-07 14:06 | Outpatient (AMB) | payer OTHER, SELFPAY ==
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
== END 2022-11-07 15:45 | disposition home or self-care (01) ==
PROVIDERS: PCP Internal Medicine; Visit Provider Physician Assistant
DX: M53.3 Sacrococcygeal disorders, not elsewhere classified (principal); G89.29 Other chronic pain
CPT/HCPCS: 99213

== ENCOUNTER → 2022-11-07 14:06 | Outpatient (BNVA) | payer OTHER, SELFPAY | PROVIDERS: PCP Internal Medicine; Visit Provider Physician Assistant ==

== ENCOUNTER 2024-07-09 10:01 | Outpatient (AMB) | payer OTHER, SELFPAY ==
--- NOTE | 2024-07-09 10:08 | A.OFFVIS_ITS ---
VS Expanded 07/09/24 10:15 07/21/24 09:03 Height 5 ft 2 in 5 ft 2 in Weight 186 lb 8.177 oz 187 lb BMI 34.1 34.2 Intake Visit Reasons: DM Allergies lisinopril Adverse Reaction (Mild, Verified 11/07/22 14:33) Cough amoxicillin Adverse Reaction (Verified 11/07/22 14:33) Diarrhea Nutrition Presentation Details: Pt presents for MNT f/u for T2DM Pt reports Dx 04/2024 Reports having no meal routine, gradually learing reg DM BS Monitoring Most Recent Diabetes Results: Cholesterol 203 mg/dL 10/04/22 HDL Cholesterol 41 mg/dL 10/04/22 Triglycerides 259 mg/dL 10/04/22 Creatinine 1.15 mg/dL (0.5-1.4) 10/04/22 Blood Urea Nitrogen 7 mg/dL (9-16) L 10/04/22 Sodium 144 mmol/L (135-145) 10/04/22 Potassium 4.5 mmol/L (3.3-5.1) 10/04/22 Chloride 109 mmol/L (96-108) H 10/04/22 Carbon Dioxide 25 mmol/L (22-29) 10/04/22 Calcium 9.3 mg/dL (8.4-10.2) 10/04/22 AST 40 U/L (5-31) H 10/04/22 ALT 36 U/L (0-31) H 10/04/22 Total Protein 6.5 g/dL (6.5-8.0) 10/04/22 Albumin 3.9 g/dL (3.5-5.0) 10/04/22 [facility]Je[facility] Equation Height: 5 ft 2 in Weight: 187 lb Resting Metabolic Rate: 1365.58 Calculated Activity Level: Mild Activity Calories Needed to Maintain Weight: 1877.67 Diagnosis Nutrition problem #1: food nutri know defi As related to (etiology) #1: diagnosis As evidenced by (sign/symptom) #1: knowledge deficit of diet Monitoring/Goals Nutrition problem monitoring: level of knowledge/skill, total PRO intake, total CHO intake and oral fluids Nutrition goal/outcome: list 3 CHO foods Outcome progress: verbalized understanding [facility] Medical History Achilles tendonitis, bilateral Back pain of lumbar region with sciatica Bilateral plantar fasciitis CKD (chronic kidney disease), stage III Depression with anxiety HTN (hypertension) Psychiatric pseudoseizure Social History Household Members: Spouse Housing: House Do you presently have visiting nurse or other home services: No Patient Tobacco Use Status: Never used Tobacco Second Hand Smoke Exposure: No Sexual orientation: Straight/Heterosexual Assessment & Plan Assessment & Plan (1) T2DM (type 2 diabetes mellitus): Code(s): E11.9 - Type 2 diabetes mellitus without complications Category: Medical Plan: Wt: 85 Kg ( 07/22 ) Est kcal needs as per MSJ: 1800 -1900 (40% carb, 30% p rotein/fat) Est fluid needs as per 25-30 ml/d: 2600 Est prot per day as per 1 g/kg bw: 85 Recommend fiber intake : 8-10 g per day and gradually increase to 25-28 g per day for women and 35-38 g for men or as tolerated Recommend sodium intake per day : less than 2000 mg Educated patient on: ( R = reviewed V = verbalizes understanding N/R = needs review N/A = not applicable * Food sources of carbohydrate, adequate serving sizes and its role in various health conditions: R * Differences between complex carbohydrates a simple carbohydrates, role of fiber in diet: R * Lean protein sources of foods: R * Differences between types of fats and role in diet (mono on saturated fat fatty acids, saturated fatty acids, trans fats): R general low fat * Food sources of sodium in salt and healthy modifications for heart health in kidney health: R V R/V * Vitamins and minerals: R * Healthy plate method concept: R V * Physical activity: Benefits a precaution: R * Hypoglycemia protocol (rule of 15): R V N/R * Dietary prevention of Hyperglycemia: R Patient Instructions: Have scheduled meals 3 meal/day - following healthy plate method (45 -60 g carb per meals) and reduce snack to 2 a day (consisting or less than 20 g carbs- read the food labels) C Coding Level of Care Code Nutr Indiv Intake (36573) Diagnoses T2DM (type 2 diabetes mellitus) E11.9 Time Spent (min) 30
[2024-07-09 10:15] VITALS: BMI 34.1
--- OUTSIDE RECORDS SUMMARY | 2024-07-09 11:24 | XMS_ITS | Clinical Summary ---
Author Organization [facility] [address] [facility] Address [address] [place] [phone] Phone Care Team Providers [employer] Name Role Phone Denzel Reyes MD Primary Care Provider Allergies Active Allergy Reactions Criticality Noted Date Comments Latex Medium 01/05/2009 Other Reaction(s): Rash/Dermatitis She notes skin rash on hands when using latex gloves, although she continues to use them Other reaction(s): Rash/Dermatitis She notes skin rash on hands when using latex gloves, although she continues to use them Lisinopril 12/08/2010 cough Other reaction(s): Other (see comments) cough Zalma 05/21/2006 Medications gabapentin (NEURONTIN) 400 mg capsule Take 1 capsule (400 mg total) by mouth 2 (two) times a day. 4 Active traZODone (DESYREL) 50 mg tablet Take 1 tablet (50 mg total) by mouth at bedtime. 3 Active amantadine (SYMMETREL) 100 mg capsule Take 1 capsule (100 mg total) by mouth 1 (one) time each day. 3 Active spironolactone (ALDACTONE) 50 mg tablet 3 Active acetaminophen (TYLENOL) 500 mg tablet Take 1 tablet (500 mg total) by mouth every 6 (six) hours if needed. Active venlafaxine XR (EFFEXOR-XR) 150 mg 24 hr capsule Take 1 capsule (150 mg total) by mouth 1 (one) time each day. 3 Active OLANZapine (ZyPREXA) 7.5 mg tablet Take 1 tablet (7.5 mg total) by mouth at bedtime. 3 Active hydrOXYzine HCL (ATARAX) 25 mg tablet TAKE 1 TABLET THREE TIMES A DAY NEEDED FOR ANXIETY 90 tablet 4 Active blood-glucose meter miscIndications :Type 2 diabetes mellitus with hyperglycemia, without long-term current use of insulin ([facility]),Type 2 diabetes mellitus with obesity ([facility]) Use daily or as directed for monitoring of diabetes. 1 each 5 Active glucose blood test stripIndication s:Type 2 diabetes mellitus with hyperglycemia, without long-term current use of insulin ([facility]),Type 2 diabetes mellitus with obesity ([facility]) Check blood glucose daily. Freestyle strips 100 strip 1 5 Active lancets lancetsIndicati ons:Type 2 diabetes mellitus with hyperglycemia, without long-term current use of insulin ([facility]),Type 2 diabetes mellitus with obesity ([facility]) Use to check blood glucose daily 100 each 1 5 Active losartan (COZAAR) 50 mg tablet Take 1 tablet (50 mg total) by mouth 2 (two) times a day. 180 each 1 5 Active metFORMIN XR (GLUCOPHAGE-XR) 500 mg 24 hr tablet Take 1 tablet (500 mg total) by mouth 2 (two) times a day with meals. Do not crush, chew, or split. 180 each 5 Active atorvastatin (LIPITOR) 20 mg tablet Take 1 tablet (20 mg total) by mouth 1 (one) time each day. 30 each 5 5 01/06/20 25 Active Hospital, Clinic, or Other Facility Administered Medication Ordered Dose Route Frequency Start Date End Date Status lidocaine (XYLOCAINE) 1 % injection 4 mLIndications:Primary osteoarthritis of both hips 4 mL inj Once PRN Procedure 06/26/2024 06/26/2024 Ended methylPREDNISolone acetate (DEPO-Medrol) injection 80 mgIndications:Primary osteoarthritis of both hips 80 mg IAtc Once PRN Procedure 06/26/2024 06/26/2024 Ended Active Problems Problem Noted Date Diagnosed Date Newly diagnosed diabetes 05/30/2024 Type 2 diabetes mellitus with obesity 05/30/2024 Type 2 diabetes mellitus wit h hyperglycemia, without long-term current use of insulin 05/30/2024 Mixed hyperlipidemia 03/16/2023 Major depressive disorder with psychotic feature s 10/20/2022 Localized edema 10/18/2022 Syncope 10/13/2022 Prediabetes 02/10/2022 Chronic right-sided low back pain without sciati ca 06/23/2020 PTSD (post-traumatic stress disorder) 06/23/2020 Suicide attempt 06/23/2020 Overview (04/07/2024): 04/2020, medication overdose. Now s/p partial hospitalization program through [facility] Onychomycosis 10/05/2019 CKD (chronic kidney disease) stage 3, GFR 30-59 ml/min 11/06/2018 Anxiety 06/02/2013 Dissociative identity disorder 06/02/2013 Obesity 01/21/2012 Bulimia nervosa 10/19/2009 Tremor, unspecified 10/11/2006 Overview (04/07/2024): on amantadine Depressive disorder 05/21/2006 Hypertension 04/26/2005 Obstructive sleep apnea 04/26/2005 Overview (04/07/2024): On CPAP since ~ 200606/01/2004: AHI 22. [facility] Polysomnogram treatment study. Date 04/21/2019. Wt 157#; BMI 30; SE 66 % SM 67 %; spent 14 % of the study in REM. On CPAP @ 12; RDI 0.6 (AHI 0.6), Central apneas 1; Obstructive apneas 0; Mixed apneas 0; hypopneas 0; RERAs 0; and, average oxygen saturation was 97%. For the entire study, PLMs ~0. Prestudy ESS 5; 0/4 RLS symptoms. Encounters Date Type Department Care Team Description 07/09/2024 8:00 AM EDT Office Visit Adult Medicine [address] [phone] Regina Thurston PA Routine general medical examination at a health care facility (Primary Dx); Need for pneumococcal vaccination; Primary hypertension; Mixed hyperlipidemia; Type 2 diabetes mellitus with hyperglycemia, without long-term current use of insulin (CMS/HCC); Stage 3b chronic kidney disease (CMS/HCC) 06/26/2024 10:30 AM EST Consult Orthopedics [address] [phone] Tristen Tavarez PA Primary osteoarthritis of both hips (Primary Dx); Chronic pain of both knees 06/09/2024 Telephone Adult Medicine [address] [phone] Denzel Reyes MD Medication Problem (MEtformin) 05/30/2024 9:30 AM EST Office Visit Adult Medicine [address] [phone] Denzel Reyes MD Newly diagnosed diabetes (CMS/HCC) (Primary Dx); Type 2 diabetes mellitus with hyperglycemia, without long-term current use of insulin (CMS/HCC); Type 2 diabetes mellitus with obesity (CMS/HCC); Stage 3b chronic kidney disease (CMS/HCC) 05/28/2024 Telephone Adult Medicine [address] [phone] Denzel Reyes MD 05/27/2024 1:26 PM EST - 05/27/2024 11:59 PM EST Hospital Encounter XRAY [address] [phone] Chronic pain of both knees Discharge Disposition: Home or Self Care 05/27/2024 1:00 PM EST Office Visit Adult [address] [phone] Denzel Reyes MD Chronic pain of both knees (Primary Dx); Stage 3b chronic kidney disease (CMS/HCC); Hypertension, unspecified type; Mixed hyperlipidemia; Prediabetes; Major depressive disorder with psychotic features (CMS/HCC); PTSD (post-traumatic stress disorder) from Last 3 Months Immunizations Name Administration Dates Next Due Influenza Quadravalent, MDCK , 0.5ml, preservative free (Flucelvax) 6mo and older 02/21/2021,02/06/2020,2019 Influenza Quadravalent, MDCK , 0.5ml, with preservative (Flucelvax) 6mo and older 02/15/2018,01/10/2017 Influenza trivalent, 0.5mL, preservative free (Fluarix; FluLaval; Fluzone) ages 6mo and older (Afluria) 3 years and older 01/28/2022,02/21/2016,03/05/2015,2013,02/27/2013 Influenza, Unspecified 02/14/2023,01/29/2012 MMR, measles mumps and rubel la Live (Priorix; M-M-R II) 12mo and older 05/28/2006 PPD Test 07/31/2007 Pfizer (ages 12 & older) Biv alent, COVID-19 03/16/2022 Pfizer SARS-CoV-2 COVID-19, mRNA, LNP-S, preservative free 02/14/2023 Pneumococcal conjugate 20 va lent (Prevnar 20, PCV 20) 2mo and older 07/09/2024 Td Tetanus diptheria (Tdvax) 7yo and older 07/09/2024 Td, Unspecified 06/21/2004 Tdap Tetanus diptheria acell ular pertussis (Boostrix; Adacel) 7yo and older 03/23/2014 Zoster recombinant (Shingrix ) 19yo and older 02/15/2022 Surgical History Surgery Date Site/Laterality Comments COLONOSCOPY 11/22/2012 Solitary diverticulum; repeat in ten yrs SHOULDER SURGERY 04/30/2013 - 04/29/2014 Left HYSTERECTOMY 04/30/2008 - 04/29/2009 BSO also, treatment of fibroid uterus Medical History Medical History Date Comments Unspecified sleep apnea 04/26/2005 DX:Unspe cified sleep apnea Obesity, unspecified 08/30/2005 DX:Obesity, unspecified Psychiatric disorder DX:Psychiat adrienne disorder; COMMENT: attempted suicide with pill overdose three times in the past , last attempt was 2007. Essential hypertension, malignant 04/26/2005 DX:Essential hypertension, malignant Depressive disorder, not els ewhere classified 05/21/2006 DX:Depressive disorder, not elsewhere classified Anxiety 06/02/2013 DX:Anxiety Prediabetes 02/10/2022 DX:Prediabetes Migraine DX:Migraine Hypertension DX:Hypertension Kidney disease DX:Kidney diseas e Family History Medical History Relation Name Comments Arthritis Brother 1 Prostate cancer Brother 2 No Known Problems Daughter x2 Hypertension Father DM, CAD, prosta te cancer Arthritis Maternal Grandmother hands Breast cancer Mother 30s HTN, glaucoma Coronary artery disease Sister Colon cancer Neg Hx Ovarian cancer Neg Hx Uterine cancer Neg Hx Relation Name Status Comments Brother 1 Alive Brother 2 Alive Daughter Alive Father Maternal Grandfather Maternal Grandmother Mother 30s Paternal Grandfather Paternal Grandmother Sister Social History Tobacco Use Types Packs/Day Years Used Date Smoking Tobacco: Never Smokeless Tobacco: Never Tobacco Cessation:Counseling Given: Not Answered Alcohol Use Standard Drinks/Week Comments Yes 0 (1 standard drink = 0.6 oz pur e alcohol) rarely Housing Instability Answer Date Recorde d Are you worried that in the next 2 months you may not have stable housing? No 05/27/2024 Food Access & Nutrition Answer Date Rec orded Do you have access to a vari ety of food including fruits and vegetables? No 05/27/2024 Health Literacy Answer Date Recorded How often do you need to hav e someone help you when you read instructions, pamphlets, or other written material from your doctor or pharmacy? Never 05/27/2024 Caregiver: How often do you need to have someone help you when you read instructions, pamphlets, or other written material from your doctor or pharmacy? Not on file 05/27/2024 Financial Risk Answer Date Recorded How hard is it for you to pa y for the very basics like food, housing, medical care, and air conditioning / heating? Not very hard 05/27/2024 Transportation Answer Date Recorded Has the lack of transportati on kept you from meetings, work, or from getting things needed for daily living? No Has the lack of transportati on kept you from medical appointments or from getting medications? No 05/27/2024 Social Isolation Answer Date Recorded How often do you feel lonely or isolated from th ose around you? Never 05/27/2024 Food Risk Answer Date Recorded Within the past 12 months we worried whether our food would run out before we got money to buy more. Never true 05/27/2024 Within the past 12 months th e food we bought just didn't last and we didn't have money to get more. Never true 05/27/2024 Dependent Care Answer Date Recorded Do you need help finding or paying for care for your loved ones. For example, childbirth and infant care teacher or elderly care for an older adult? No 05/27/2024 Education Answer Date Recorded Do you think completing more education or training, like finishing a GED, going to college, or learning a trade, would be helpful for you? No 05/27/2024 Employment and Income Answer Date Recor ded During the last four weeks, have you been actively looking for work? No 05/27/2024 Living Situation Answer Date Recorded What is your living situation? 0 05/27/2024 Comments No Sex and Gender Information Value Date Recorded Sex Assigned at Not on file Legal Sex Female 6:27 PM EST Gender Identity Not on file Sexual Orientation Not on file Occupation Industry Job Start Date Job End Date disability Not on file Not on file Not on file Obstetrics History Last Filed Vital Signs Vital Sign Reading Time Taken Comments Blood Pressure 106/76 07/09/2024 8:06 AM EDT Pulse 81 07/09/2024 8:06 AM EDT Temperature 36 ??C (96.8 ??F) 07/09/2024 8:06 AM EDT Respiratory Rate 14 07/09/2024 8:06 AM EDT Oxygen Saturation - - Inhaled Oxygen Concentration - - Weight 84.9 kg (187 lb 3.2 oz) 07/09/2024 8:06 A M EDT Height 154.9 cm (5' 1 ) 07/09/2024 8:06 AM EDT Body Mass Index 35.37 07/09/2024 8:06 AM EDT Plan of Treatment Upcoming Encounters Date Type Department Care Team (Late st Contact Info) Description 07/10/2024 8:45 AM EDT Office Visit Orthopedics [address] [phone] Tristen Tavarez PA [address] [place] [address] 07/17/2024 9:45 AM EDT Office Visit Orthopedic Surgery - [place] [address] [facility] [address] [place] [phone] Severo Morrell, DPM [address] [phone] 08/04/2024 11:30 AM EDT Appointment Radiology Department - [address] [phone] 09/10/2024 11:00 AM EDT Office Visit Adult Medicine East [address] [phone] Denzel Reyes MD [address] [place], [place] Health Maintenance Due Date Last Done Comments Diabetes: Annual Retina Eye Exam 02/20/1972 RSV Immunization Patients 60+ Years Old (1 - Risk 60-74 years 1-dose series) 2022 Medicare Annual Wellness Visit 04/08/2022 Diabetes: Blood Sugar Control Test (HGBA1C) 11/24/2024 05/27/2024, 11/06/2022 Depression Screening 05/27/2025 05/27/2024 Diabetes: Annual GFR (Glomerular Filtration Rate) 05/27/2025 05/27/2024, 03/20/2023 Hypertension/CHF/CAD Annual BMP Blood Test 05/27/2025 05/27/2024, 03/20/2023 Social Influencers of Health Screening 05/27/2025 05/27/2024 Diabetes: Annual Urine Albumin-Creatinine Ratio (uACR) 05/30/2025 05/30/2024, 01/21/2012 Diabetes: Annual Foot Exam 05/30/2025 05/30/2024 Breast Cancer Screening 07/24/2025 07/25/19 24, 07/18/2022, 07/12/2021, Additional history exists Cholesterol Screening (Lipid Panel) 05/27/2029 05/27/2024, 03/20/2023 Colorectal Cancer Screening: Colonoscopy 06/09/2032 06/09/2022 DTaP,Tdap,and Td Vaccines (4 - Td or Tdap) 07/09/2034 07/09/2024, 03/23/2014, 06/21/2004 MMR Vaccines Aged Out 05/28/2006 No longer eligi ble based on patient's age to complete this topic Hepatitis C Screening Completed 07/12/2015 Zoster Vaccines Completed 02/15/2022, 02/28, 01/06/2021 Influenza Vaccine Completed 01/19/2024, , 02/01/2023, Additional history exists COVID-19 Vaccine Completed 06/02/2024, , 02/01/2023, Additional history exists Pneumococcal Vaccine: 50+ Years Completed 07/09/2024 Pneumococcal Vaccine: Pediatrics (0 to 5 Years) and At-Risk Patients (6 to 64 Years) Completed 07/09/2024 HIB Vaccines Aged Out No longer eligi ble based on patient's age to complete this topic HIV Screening Discontinued HPV Vaccines Aged Out No longer eligi ble based on patient's age to complete this topic Hepatitis A Vaccines Aged Out No long er eligible based on patient's age to complete this topic Hepatitis B Vaccines Aged Out No long er eligible based on patient's age to complete this topic IPV Vaccines Aged Out No longer eligi ble based on patient's age to complete this topic Meningococcal ACWY Vaccine Aged Out N o longer eligible based on patient's age to complete this topic Meningococcal B Vacine Aged Out No lo nger eligible based on patient's age to complete this topic RSV Immunization Patients Under 20 months Aged Out No longer eligible based on patient's age to complete this topic Varicella Vaccines Aged Out No longer eligible based on patient's age to complete this topic Procedures Procedure Name Priority Date/Time Associated Diagnosis Comments LARGE JOINT ARTHROCENTESIS Routine 06/26/2024 10:30 AM EST Primary osteoarthritis of both hips MICROALBUMIN CREATININE URINE RATIO Routine 05/30/2024 10:10 AM EST Type 2 diabetes mellitus with hyperglycemia, without long-term current use of insulin ([facility]/HCC) Type 2 diabetes mellitus with obesity (CMS/[facility]) Stage 3b chronic kidney disease (CMS/HCC) POC GLUCOSE Routine 05/30/2024 9:45 AM EST Newly diagnosed diabetes (CMS/HCC) CBC WITH AUTO DIFFERENTIAL Routine 05/27/2024 2:00 PM EST Hypertension, unspecified type Chronic pain of both knees CBC AND DIFFERENTIAL Routine 05/27/2024 2:00 PM EST Hypertension, unspecified type Chronic pain of both knees COMPREHENSIVE METABOLIC PANEL Routine 05/27/2024 2:00 PM EST Stage 3b chronic kidney disease (CMS/HCC) Hypertension, unspecified type Chronic pain of both knees LIPID PANEL WITH REFLEX TO DIRECT LDL Routine 05/27/2024 2:00 PM EST Mixed hyperlipidemia HEMOGLOBIN A1C Routine 05/27/2024 2:00 PM EST Prediabetes XR KNEE 4+ VIEWS BILAT Routine 1:38 PM EST Chronic pain of both knees SCREENING MAMMOGRAPHY BI 2-VIEW BREAST INC CAD Routine 07/25/2023 1:13 PM EDT Encounter for screening mammogram for malignant neoplasm of breast COLONOSCOPY Routine 06/09/2022 HEPATITIS C SCREENING Routine 07/12/2015 from Last 3 Months or Most Recently Relevant to Health Maintenance Results * Microalbumin creatinine urine ratio (05/30/2024 10:10 AM EST) Creatinine, Urine 199.0 mg/dL LAB CHEMISTRY METHOD 05/30/2024 1:45 PM EST [facility] Microalb, Ur 11.1 0.0 - 29.0 mg/L LAB CHEMISTRY METHOD 05/30/2024 1:45 PM EST [facility] Microalb/Creat Ratio 6 <30 mg/g creat LAB CHEMISTRY METHOD 05/30/2024 1:45 PM EST [facility] Urine Urine specimen obtained by clean catch procedure / Unknown Non-blood Collection / Unknown 05/30/2024 10:10 AM EST 05/30/2024 10:10 AM EST us Denzel Reyes MD LAB URINE ORDERABLES F inal Result [facility] [address] [place] [address], [place] [phone] * (ABNORMAL) POC glucose manually resulted (05/30/2024 9:45 AM EST) Glucose POC 142 mg/dL Blood Capillary blood specimen / Unknown 05/30/2024 9:45 AM EST us Denzel Reyes MD POINT OF CARE TEST ENT ER/EDIT ORDERABLES Final Result * (ABNORMAL) Lipid panel with reflex to direct LDL (05/27/2024 2:00 PM EST) Cholesterol 210(H) 0 - 200 mg/dL LAB CHEMISTRY METHOD 05/27/2024 5:23 PM [facility] Triglycerides 190(H) 0 - 150 mg/dL LAB CHEMISTRY METHOD 05/27/2024 5:23 PM [facility] HDL 45 >=40 mg/dL LAB CHEMISTRY METHOD 05/27/2024 5:23 PM [facility] LDL Calculated 127(H) 0 - 100 mg/dL LAB CHEMISTRY METHOD 05/27/2024 5:23 PM [facility] VLDL Cholesterol Ron 38 mg/dL LAB CHEMISTRY METHOD 05/27/2024 5:23 PM [facility] Non HDL Chol. (LDL+VLDL) 165(H) <145 mg/dL LAB CHEMISTRY METHOD 05/27/2024 5:23 PM [facility] Chol/HDL Ratio 4.7(H) 0.0 - 4.4 LAB CHEMISTRY METHOD 05/27/2024 5:23 PM [facility] Blood Venous blood specimen / Unknown Venipuncture / Unknown 05/27/2024 2:00 PM EST 05/27/2024 2:00 PM EST Denzel Reyes MD LAB BLOOD ORDERABLES F inal Result [facility] [address] [place] [address], * (ABNORMAL) CBC auto differential (05/27/2024 2:00 PM EST) WBC 6.8 4.8 - 10.8 K/mcL LAB HEMETOLOGY METHOD 05/27/2024 5:29 PM [facility] RBC 4.40 3.80 - 4.80 M/mcL LAB HEMETOLOGY METHOD 05/27/2024 5:29 PM [facility] Hemoglobin 12.5 11.5 - 16.0 g/dL LAB HEMETOLOGY METHOD 05/27/2024 5:29 PM [facility] Hematocrit 40.7 35.0 - 47.0 % LAB HEMETOLOGY METHOD 05/27/2024 5:29 PM [facility] MCV 93.6 79.0 - 98.0 FL LAB HEMETOLOGY METHOD 05/27/2024 5:29 PM [facility] MCH 28.7 27.0 - 32.0 pcg LAB HEMETOLOGY METHOD 05/27/2024 5:29 PM [facility] MCHC 30.7(L) 32.0 - 37.0 g/dL LAB HEMETOLOGY METHOD 05/27/2024 5:29 PM [facility] RDW 14.2 11.0 - 15.0 % LAB HEMETOLOGY METHOD 05/27/2024 5:29 PM [facility] Platelets 275 130 - 400 K/mcL LAB HEMETOLOGY METHOD 05/27/2024 5:29 PM [facility] MPV 10.9 7.0 - 11.0 FL LAB HEMETOLOGY METHOD 05/27/2024 5:29 PM [facility] NRBC 0.0 <1.0 % LAB HEMETOLOGY METHOD 05/27/2024 5:29 PM [facility] NRBC Absolute 0.00 <0.10 K/mcL LAB HEMETOLOGY METHOD 05/27/2024 5:29 PM [facility] Neutrophils Relative 56.2 % LAB HEMETOLOGY METHOD 05/27/2024 5:29 PM [facility] Lymphocytes Relative 35.1 % LAB HEMETOLOGY METHOD 05/27/2024 5:29 PM [facility] Monocytes Relative 8.3 % LAB HEMETOLOGY METHOD 05/27/2024 5:29 PM [facility] Eosinophils Relative 0.0 % LAB HEMETOLOGY METHOD 05/27/2024 5:29 PM [facility] Basophils Relative 0.1 % LAB HEMETOLOGY METHOD 05/27/2024 5:29 PM [facility] Immature Granulocytes Relative 0.3 % LAB HEMETOLOGY METHOD 05/27/2024 5:29 PM [facility] Neutrophils Absolute 3.83 1.50 - 7.00 K/mcL LAB HEMETOLOGY METHOD 05/27/2024 5:29 PM [facility] Lymphocytes Absolute 2.40 1.00 - 5.00 K/mcL LAB HEMETOLOGY METHOD 05/27/2024 5:29 PM [facility] Monocytes Absolute 0.57 0.20 - 1.00 K/mcL LAB HEMETOLOGY METHOD 05/27/2024 5:29 PM [facility] Eosinophils Absolute 0.00 0.00 - 0.50 K/mcL LAB HEMETOLOGY METHOD 05/27/2024 5:29 PM EST [facility] Basophils Absolute 0.01 0.00 - 0.20 K/[facility] LAB HEMETOLOGY METHOD 05/27/2024 5:29 PM EST [facility] Immature Granulocytes Absolute 0.02 0.00 - 0.03 K/[facility] HEMETOLOGY METHOD 05/27/2024 5:29 PM EST [facility] Blood Venous blood specimen / Unknown Venipuncture / Unknown 05/27/2024 2:00 PM EST 05/27/2024 2:00 PM EST us Denzel Reyes MD LAB BLOOD ORDERABLES F inal Result Performing Organization Address City/[facility]/ZIP Co de Phone Number [facility] [address] [place] [address], [place] [phone] * (ABNORMAL) Hemoglobin A1c (05/27/2024 2:00 PM EST) Hemoglobin A1C 7.4(H) <6.5 % LAB CHEMISTRY METHOD 05/27/2024 9:16 PM EST [facility] Mean Bld Glu Estim. 166 mg/dL LAB CHEMISTRY METHOD 05/27/2024 9:16 PM EST [facility] Blood Venous blood specimen / Unknown Venipuncture / Unknown 05/27/2024 2:00 PM EST 05/27/2024 2:00 PM EST Denzel Reyes MD LAB BLOOD ORDERABLES F inal Result [facility] [address] [place] [address], [place] [phone] * (ABNORMAL) Comprehensive metabolic panel (05/27/2024 2:00 PM EST) Sodium 135 133 - 145 mmol/L LAB CHEMISTRY METHOD 05/27/2024 5:38 PM [facility] Potassium 4.4 3.5 - 5.5 mmol/L LAB CHEMISTRY METHOD 05/27/2024 5:38 PM [facility] Chloride 104 96 - 110 mmol/L LAB CHEMISTRY METHOD 05/27/2024 5:38 PM [facility] CO2 25 21 - 32 mmol/L LAB CHEMISTRY METHOD 05/27/2024 5:38 PM [facility] Anion Gap 6 3 - 11 LAB CHEMISTRY METHOD 05/27/2024 5:38 PM [facility] Glucose 96 70 - 100 mg/dL LAB CHEMISTRY METHOD 05/27/2024 5:38 PM [facility] BUN 16 5 - 25 mg/dL LAB CHEMISTRY METHOD 05/27/2024 5:38 PM [facility] Creatinine 1.49(H) 0.50 - 1.10 mg/dL LAB CHEMISTRY METHOD 05/27/2024 5:38 PM [facility] eGFR 40(L) >=60 mL/min/1. 73m2 LAB CHEMISTRY METHOD 05/27/2024 5:38 PM [facility] Comment:Calculation based on the??Chronic Kidney Disease Epidemiology Collaboration (CKD-EPI) equation refit??without adjustment for race. BUN/Creatinine Ratio 10.7 LAB CHEMISTRY METHOD 05/27/2024 5:38 PM [facility] Calcium 10.0 8.5 - 10.5 mg/dL LAB CHEMISTRY METHOD 05/27/2024 5:38 PM [facility] AST (SGOT) 32 10 - 42 unit/L LAB CHEMISTRY METHOD 05/27/2024 5:38 PM [facility] ALT (SGPT) 31 10 - 60 unit/L LAB CHEMISTRY METHOD 05/27/2024 5:38 PM [facility] Alkaline Phosphatase 107 42 - 121 unit/L LAB CHEMISTRY METHOD 05/27/2024 5:38 PM [facility] Total Protein 7.4 6.0 - 8.0 g/dL LAB CHEMISTRY METHOD 05/27/2024 5:38 PM EST [facility] Albumin 4.3 3.2 - 5.0 g/dL LAB CHEMISTRY METHOD 05/27/2024 5:38 PM EST [facility] Total Bilirubin 0.3 0.0 - 1.4 mg/dL LAB CHEMISTRY METHOD 05/27/2024 5:38 PM EST [facility] Blood Venous blood specimen / Unknown Venipuncture / Unknown 05/27/2024 2:00 PM EST 05/27/2024 2:00 PM EST us Denzel Reyes MD LAB BLOOD ORDERABLES F inal Result [facility] [address], [place] [address], [place] [phone] * XR Knee 4+ Views bilat (05/27/2024 1:38 PM EST) Anatomical Region Laterality Modality Lower Extremities, Knee Bilateral Radiogra phic Imaging 05/27/2024 4:28 PM EST Narrative 05/27/2024 4:29 PM EST Bilateral knees, 4 views of each. History chronic bilateral knee pain. There is arm mild narrowing of the joint space medially on the left. There is no evidence of fractures, dislocations or effusion. Alignment is maintained. CONCLUSIONS: Degenerative changes in the medial compartment of the left knee. -------- FINAL REPORT -------- Dictated By: Sunitha Sales Dictated Date: 05/27/2024 16:28 ET Assigned Physician: Sunitha Sales Reviewed and Electronically Signed By: Sunitha Sales Signed Date: 05/27/2024 16:29 ET Workstation ID: [id number] Transcribed By: Self Edit Transcribed Date: 05/27/2024 16:28 ET Procedure Note Sunitha Sales MD - 05/27/2024 Bilateral knees, 4 views of each. History chronic bilateral knee pain. There is arm mild narrowing of the joint space medially on the left. Thereis no evidence of fractures, dislocations or effusion. Alignment ismaintained. CONCLUSIONS: Degenerative changes in the medial compartment of the leftknee. -------- FINAL REPORT -------- Dictated By: Sunitha Sales Dictated Date: 05/27/2024 16:28 ET Assigned Physician: Sunitha Sales Reviewed and Electronically Signed By: Sunitha Sales Signed Date: 05/27/2024 16:29 ET Workstation ID: [id number] Transcribed By: Self Edit Transcribed Date: 05/27/2024 16:28 ET us Denzel Reyes MD IMG XR PROCEDURES Eloise l Result * SCREENING MAMMOGRAPHY BI 2-VIEW BREAST INC CAD (07/25/2023 1:13 PM EDT) Anatomical Region Laterality Modality Radiographic Misti ging 07/18/2022 1:07 PM EDT Narrative 07/26/2023 8:33 AM EDT This is a summary report. The complete report is available in the patient's medical record. If you cannot access the medical record, please contact the sending organization for a detailed fax or copy. Study: SCREENING MAMMOGRAPHY BI 2-VIEW BREAST INC CAD Technique: Bilateral full-field digital screening mammography is obtained and read in conjunction with computer aided detection. ??Tomosynthesis as well as 2D C-View imaging were obtained. Comparison: Comparison made to multiple prior, most recent July 18, 2022, and most remote April 25, 2019. Breast composition: There are scattered areas of fibroglandular density. Bilateral breasts: No significant masses, suspicious calcifications or other abnormalities are seen in either breast. IMPRESSION: Impression: Bilateral breasts: Negative, no specific mammographic evidence of malignancy. ??Normal interval follow-up is recommended in 12 months. BI-RADS: Category 1: Negative Procedure Note Wes Hdez MD - 12/17/2023 This is a summary report. The complete report is available in thepatient's medical record. If you cannot access the medical record, pleasecontact the sending organization for a detailed fax or copy. Study: SCREENING MAMMOGRAPHY BI 2-VIEW BREAST INC CAD Technique: Bilateral full-field digital screening mammography is obtainedand read in conjunction with computer aided detection. Tomosynthesis aswell as 2D C-View imaging were obtained. Comparison: Comparison made to multiple prior, most recent July 18, 2022,and most remote April 25, 2019. Breast composition: There are scattered areas of fibroglandular density. Bilateral breasts: No significant masses, suspicious calcifications orother abnormalities are seen in either breast. IMPRESSION: Impression: Bilateral breasts: Negative, no specific mammographic evidence ofmalignancy. Normal interval follow-up is recommended in 12 months. BI-RADS: Category 1: Negative Denzel Reyes MD IMG XR PROCEDURES Eloise l Result * Colonoscopy (06/09/2022) Colonoscopy abstracted, no interpretation Anatomical Region Laterality Modality Other Historical Provider HEALTH MAINTENANCE Final Result * Hepatitis C Screening (07/12/2015) Hepatitis C Screening abstracted Historical Provider HEALTH MAINTENANCE Final Result from Last 3 Months or Most Recently Relevant to Health Maintenance Insurance [employer] MEDICARE Advance Directives Documents on File Type Date Recorded Patient Associate Director Finance Expl anation Health Care Decision (hx) 09/19/2022 AD PALACIOS DIRECTIVE Health Care Decision (hx) 09/19/2022 AD PALACIOS DIRECTIVE Care Teams [employer] Relationship Specialty Start Date End Date Denzel Reyes MD [address] [place] [address] PCP - General 10/26/22
--- OUTSIDE RECORDS SUMMARY | 2024-07-09 11:24 | XMS_ITS | Encounter Summary ---
Author Organization [facility] Address [address] [address] Phone Care Team Providers Care Certified Health Education Specialist Name Role Phone Denzel Reyes Primary Care Provider [phone] Encounter Details Date Type Department Care Team (Late Contact Info) Description 06/28/2024 Orders Only [facility] [address] [address] Arline Jane ARNP [address] [address] Stage 3b chronic kidney disease (HCC); Hypertension Social History Tobacco Use Types Packs/Day Years Used Date Smoking Tobacco: Never Smokeless Tobacco: Never Alcohol Use Standard Drinks/Week Comments No 0 (1 standard drink = 0.6 oz pur e alcohol) Comments Unknown Sex and Gender Information Value Date Recorded Sex Assigned at Not on file Legal Sex Female 4:46 PM EST Gender Identity Not on file Sexual Orientation Not on file documented as of this encounter Plan of Treatment Upcoming Encounters Date Type Department Care Team (Late st Contact Info) Description 01/01/2025 10:15 AM EDT Office Visit [facility] [address] [address] Arline Jane ARNP [address] [address] documented as of this encounter Visit Diagnoses Diagnosis Stage 3b chronic kidney disease (HCC) Hypertension documented in this encounter Care Teams Certified Health Education Specialist Relationship Specialty Start Date End Date Denzel Reyes [address] [place] [address] PCP - General 07/01/24 documented as of this encounter
--- OUTSIDE RECORDS SUMMARY | 2024-07-09 11:24 | XMS_ITS | Clinical Summary ---
Author Organization [facility] Address [address] [address] Phone Care Team Providers Care Gear Setter Name Role Phone Denzel Reyes Primary Care Provider [phone] Allergies Active Allergy Reactions Criticality Noted Date Comments Aloe Vera Other (see comments) 10/25/2020 Lisinopril Other (see comments) 10/25/2020 Mosca (Diagnostic) Other (see comments) Medications Acetaminophen Extra Strength 500 MG tablet Take 500 mg by mouth every 8 (eight) hours if needed 1 Active amantadine (SYMMETREL) 100 MG capsule Take 100 mg by mouth 2 (two) times a day TAKE ONE TABS TWICE DAILY 1 Active hydrOXYzine (ATARAX) 10 MG tablet Take 10 mg by mouth TAKE ONE TAB ONCE DAILY 1 Active traZODone (DESYREL) 50 MG tablet Take 50 mg by mouth TAKE ONE TAB ONCE A DAY. 1 Active gabapentin (NEURONTIN) 300 MG capsule Take 300 mg by mouth in the morning and 300 mg in the evening and 300 mg before bedtime. Active OLANZapine (ZyPREXA) 7.5 MG tablet Take 7.5 mg by mouth every night Active venlafaxine XR (EFFEXOR-XR) 150 MG 24 hr capsule Take 150 mg by mouth 1 (one) time each day Do not crush or chew. Active losartan (Cozaar) 50 MG tabletIndicatio ns:Hypertensive disorder Take 1 tablet (50 mg total) by mouth 1 (one) time each day 30 tablet 11 4 07/30/19 25 Active Additional Information Patient taking differently:50 mg Oral2 times daily, Reported on 07/01/2024 spironolactone (ALDACTONE) 50 MG tablet Take 1 tablet (50 mg total) by mouth 1 (one) time each day 90 tablet 3 Active metFORMIN XR (GLUCOPHAGE-XR) 500 MG 24 hr tablet Take 500 mg by mouth in the morning and 500 mg in the evening. Take with meals. DO NOT CRUSH CHEW OR SPLIT. Active Active Problems Problem Noted Date Diagnosed Date Proteinuria, not otherwise specified 01/02/2024 Type 2 diabetes mellitus without complication Edema 10/27/2021 Chronic kidney disease 10/25/2020 Hypertension 10/25/2020 Hypertensive renal disease 10/25/2020 Hypokalemia 10/25/2020 Encounters Date Type Department Care Team Description 07/01/2024 10:30 AM EST [facility] [address] [address] Arline Jane ARNP Stage 3b chronic kidney disease (HCC) (Primary Dx); Hypertension 06/28/2024 Orders Only [facility] [address] [address] Arline Jane ARNP Stage 3b chronic kidney disease (HCC); Hypertension 06/05/2024 Refill [facility] [place] [id number] [address] Denice Amezcua from Last 3 Months Immunizations Name Administration Dates Next Due Influenza TIV (IM) 02/16/2018 Family History Medical History Relation Comments Diabetes Father Heart disease Father Hypertension Father Cancer Mother L & R breast Hypertension Mother Relation Status Comments Father Unknown Mother Unknown Social History Tobacco Use Types Packs/Day Years Used Date Smoking Tobacco: Never Smokeless Tobacco: Never Tobacco Cessation:Counseling Given: No Alcohol Use Standard Drinks/Week Comments No 0 (1 standard drink = 0.6 oz pur e alcohol) Comments Unknown Sex and Gender Information Value Date Recorded Sex Assigned at Not on file Legal Sex Female 4:46 PM EST Gender Identity Not on file Sexual Orientation Not on file Last Filed Vital Signs Vital Sign Reading Time Taken Comments Blood Pressure 110/64 07/01/2024 11:24 AM EST Pulse 61 07/01/2024 11:24 AM EST Temperature - - Respiratory Rate - - Oxygen Saturation 98% 07/01/2024 11:24 AM EST Inhaled Oxygen Concentration - - Weight 82.6 kg (182 lb) 07/01/2024 11:24 AM EST Height 157.5 cm (5' 2 ) 10/25/2020 3:27 PM EDT Body Mass Index 33.29 10/25/2020 3:27 PM EDT Plan of Treatment Upcoming Encounters Date Type Department Care Team (Late st Contact Info) Description 01/01/2025 10:15 AM EDT [facility] Visit [facility] [address] [address] Arline Jane ARNP [address] [address] Health Maintenance Due Date Last Done Comments Breast Cancer Screening 1962 Pneumococcal Vaccine: Pediatrics (0 to 5 Years) and At-Risk Patients (6 to 64 Years) (1 of 2 - PCV) 02/20/1968 Colorectal Cancer Screening: Annual FOBT 2011 Colorectal Cancer Screening: Colonoscopy 2011 Colorectal Cancer Screening: Sigmoidoscopy 2011 Diabetes: Ophthalmology Exam 03/07/2022 Diabetes: Pedal Pulse Checked 03/07/2022 Diabetes: Sensory Foot Exam 03/07/2022 Diabetes: Visual Foot Exam 03/07/2022 Influenza Vaccine (#1) 2023 3, 01/28/2022, 02/21/2021, Additional history exists Diabetes: Hemoglobin A1C 08/25/2024 05/27/2024 Hepatitis B Vaccine Aged Out No longe r eligible based on patient's age to complete this topic Insurance [facility] MEDICARE [facility] MED[facility]ARE Care Teams Gear Setter Relationship Specialty Start Date End Date Denzel Reyes [address] [place] [address] PCP - General 07/01/24
--- OUTSIDE RECORDS SUMMARY | 2024-07-09 11:24 | XMS_ITS | Encounter Summary ---
Author Organization [facility] Address [address] [place] [address] Care Team Providers Care Mathematics Improvement Teacher Name Role Phone Denzel Reyes MD Primary Care Provider Reason for Referral * Orthopedic (Routine) - Pending Review Specialty Diagnoses / Procedures Referred By Contac t Referred To Contact Orthopedic Surgery / Orthopaedic Surgery Diagnoses Primary osteoarthritis of both hips Procedures L Inj/Asp: R knee Tristen Tavarez PA [address] [place] [address] Phone: tel: fax: Referral ID Status Reason Start Date Expiration Date V isits Requested Visits Authorized [id number] Pending Review 06/26/2024 06/26/2025 1 1 Reason for Visit * Reason Comments Pain Consult Pain * Consultation (Routine) - Closed Specialty Diagnoses / Procedures Referred By Contact Referred To Contact Orthopaedics / Orthopaedic Surgery Diagnoses Chronic pain of both knees Denzel Reyes MD [address] [place] [address] Phone: tel: fax: Tristen Tavarez PA [address] [place] [address] Phone: tel: fax: Referral ID Status Reason Start Date Expiration Date V isits Requested Visits Authorized [id number] Closed Specialty Services Required 05/27/2024 05/27/2025 1 1 Encounter Details Date Type Department Care Team (Late st Contact Info) Description 06/26/2024 10:30 AM EST Consult Orthopedics - [place] [address] [place] [address] Tristen Tavarez PA [address] [place] [address] Primary osteoarthritis of both hips (Primary Dx); Chronic pain of both knees Social History Tobacco Use Types Packs/Day Years Used Date Smoking Tobacco: Never Smokeless Tobacco: Never Tobacco Cessation:Counseling Given: Not Answered Alcohol Use Standard Drinks/Week Comments Never 0 (1 standard drink = 0.6 oz pur e alcohol) Housing Instability Answer Date Recorde d Are [...] care for your loved ones. For example, children's service supervisor or elderly care for an older adult? [...] on file documented as of this encounter Last Filed Vital Signs Vital Sign Reading Time Taken Comments Blood Pressure - - Pulse - - Temperature - - Respiratory Rate 16 06/26/2024 10:29 AM EST Oxygen Saturation - - Inhaled Oxygen Concentration - - Weight 86.2 kg (190 lb) 06/26/2024 10:29 AM EST Height 154.9 cm (5' 1 ) 06/26/2024 10:29 AM EST Body Mass Index 35.9 06/26/2024 10:29 AM EST documented in this encounter Patient Instructions * Attachments The following attachments cannot be sent through Care Everywhere. * Joint Injections: General Info (Uzbek) documented in this encounter Plan of Treatment Upcoming Encounters Date Type Department Care Team (Late st Contact Info) Description 07/10/2024 8:45 AM EDT Office Visit Orthopedics [address] [address] Tristen Tavarez PA [address] [place] [address] 07/17/2024 9:45 AM EDT Office Visit Orthopedic Surgery [facility] [address] [phone] Severo Morrell, DPM [address] [address] 08/04/2024 11:30 AM EDT Appointment Radiology Department [address] [phone] 09/10/2024 11:00 AM EDT Office Visit Adult Medicine [address] [phone] Denzel Reyes MD [address] [place] [address] Pending Results Name Type Priority Associated Diagnoses Date /Time L Inj/Asp: R knee Procedures Routine Primary osteoarthritis of both hips 06/26/2024 10:30 AM EST documented as of this encounter Procedures Procedure Name Priority Date/Time Associated Diagnosis Comments LARGE JOINT ARTHROCENTESIS Routine 06/26/2024 10:30 AM EST Primary osteoarthritis of both hips documented in this encounter Visit Diagnoses Diagnosis Primary osteoarthritis of both hips- Primary Chronic pain of both knees Encounter for screening mammogram for breast cancer documented in this encounter Administered Medications Inactive Administered Medications - up to 3 most recent administrations Medication Order MAR Action Action Date Dose Rate Site lidocaine (XYLOCAINE) 1 % injection 4 mL 4 mL, injection, Once PRN Procedure, Starting on Nolvia 06/26/24 at 1030, For 1 doseIndications:Primary osteoarthritis of both hips Given 06/26/2024 10:30 AM EST 4 mL methylPREDNISolone acetate (DEPO-Medrol) injection 80 mg 80 mg, intra-articular, Once PRN Procedure, Starting on Nolvia 06/26/24 at 1030, For 1 doseIndications:Primary osteoarthritis of both hips Given 06/26/2024 10:30 AM EST 80 mg documented in this encounter Orders Outpatient Referral Count Last Ordered Date Fir st Ordered Date AMB REFERRAL TO ORTHOPEDIC SURGERY 1 2024 documented in this encounter Care Teams Mathematics Improvement Teacher Relationship Specialty Start Date End Date Denzel Reyes MD [address] [place] [address] PCP - General 10/26/22 documented as of this encounter
--- OUTSIDE RECORDS SUMMARY | 2024-07-09 11:24 | XMS_ITS | Encounter Summary ---
Author Organization [facility] Address [address] [place] [address] Care Team Providers Care Glassware Defect Repairer Name Role Phone Denzel Reyes MD Primary Care Provider Reason for Visit * Reason Comments Annual Exam 64 year old female Encounter Details Date Type Department Care Team (Late st Contact Info) Description 07/09/2024 8:00 AM EDT Office Visit Adult Medicine [facility] [address], [place] [phone] Regina Thurston PA [address] [place], [place] Routine general medical examination at a health care facility (Primary Dx); Need for pneumococcal vaccination; Primary hypertension; Mixed hyperlipidemia; Type 2 diabetes mellitus with hyperglycemia, without long-term current use of insulin (CMS/HCC); Stage 3b chronic kidney disease ([facility]/HCC) Social History Tobacco Use Types Packs/Day Years [...] care for your loved ones. For example, assistant child care teacher or elderly care for an [...] file Not on file Not on file documented as of this [...] Mass Index 35.37 07/09/2024 8:06 AM EDT documented in this encounter Ordered Prescriptions Prescription Sig Dispense Quantity Refills Last Filled Start Date End Date atorvastatin (LIPITOR) 20 mg tablet Take 1 tablet (20 mg total) by mouth 1 (one) time each day. 30 each 5 07/09/2024 01/05/2025 documented in this encounter Progress Notes * HENRY Landon - 07/09/2024 8:00 AM EDT CHIEF COMPLAINT: Annual Exam (64 year old female) IDENTIFIER: Citlali Nguyen is a 64 y.o. old female. HPI: Patient presents today for annual physical exam. She lives at home with her . She is not working, is on disability. She follows several specialists including psychiatry for depression, anxiety, PTSD, DID. Things arestable. She follows rheumatology who is prescribing gabapentin and neurology who is prescribing amantadine. She follows nephrology for CKD, most recent gfr 40. She has a new diagnosis of diabetes with a hemoglobin A1c of 7.4%. She is now on metformin 500 mg twice daily. Fasting blood sugars this week have been around 129. LDL 127, not currently on statin medication. She is overdue for eye exam. She is UTD with dental exam. Flu shot UTD. Will administer prevnar andTD today. She has not been eating a healthy diet, exercises daily. Colonoscopy up-to-date. Mammogram scheduled next month. ROS: GENERAL: No malaise, significant weight loss or fever HEENT: No changes in hearing or vision, nose bleeds or other nasal problems NECK: No lumps, goiter, pain or significant neck swelling RESPIRATORY: No cough, wheezing or shortness of breath CARDIOVASCULAR: No chest pain, leg swelling or palpitations BREAST: No lumps, discharge, pain or change in skin GI: No abdominal discomfort, blood in stools or black stools : No dysuria, frequency or incontinence WHEEL LACER AND TRUER: No abnormal vaginal bleeding or abnormal vaginal discharge MUSCULOSKELETAL: No joint pain or swelling, back pain, or muscle pain SKIN: No lesions, rash or itching PSYCH: See HPI HEMATOLOGY/LYMPHOLOGY: No prolonged bleeding, easy bruisability or swollen nodes ENDOCRINE: No cold or heat intolerance, polyuria, polydipsia or goiter NEURO: See HPI PAST MEDICAL HISTORY: Patient Active Problem List Diagnosis Date Noted Newly diagnosed diabetes ([facility]) 05/30/2024 Type 2 diabetes mellitus with obesity ([facility]) 05/30/2024 Type 2 diabetes mellitus with hyperglycemia, without long-term current use of insulin ([facility]) 05/30/2024 Mixed hyperlipidemia 03/16/2023 Major depressive disorder with psychotic features ([facility]) 10/20/2022 Localized edema 10/18/2022 Syncope 10/13/2022 Prediabetes 02/10/2022 Chronic right-sided low back pain without sciatica 06/23/2020 PTSD (post-traumatic stress disorder) 06/23/2020 Suicide attempt ([facility]) 06/23/2020 Onychomycosis 10/05/2019 CKD (chronic kidney disease) stage 3, GFR 30-59 ml/min ([facility]) 11/06/2018 Anxiety 06/02/2013 Dissociative identity disorder ([facility]) 06/02/2013 Obesity 01/21/2012 Bulimia nervosa 10/19/2009 Tremor, unspecified 10/11/2006 Depressive disorder 05/21/2006 Hypertension 04/26/2005 Obstructive sleep apnea 04/26/2005 SOCIAL HISTORY: Social History Tobacco Use Smoking status: Never Smokeless tobacco: Never Substance Use Topics Alcohol use: Yes Comment: rarely FAMILY HISTORY: Family Status Relation Name Status Mother 30s Father Sister Brother Alive Brother Alive Daughter Alive MGM MGF PGM PGF Neg Hx (Not Specified) No partnership data on file Family History Problem Relation Name Age of Onset Breast cancer Mother 30s 31 HTN, glaucoma Hypertension Father DM, CAD, prostate cancer Coronary artery disease Sister Arthritis Brother Prostate cancer Brother No Known Problems Daughter x2 Arthritis Maternal Grandmother hands Ovarian cancer Neg Hx Colon cancer Neg Hx Uterine cancer Neg Hx ACTIVE MEDICATIONS: Outpatient Medications Marked as Taking for the 07/09/24 encounter (Office Visit) with HENRY Landon Medication Sig Dispense Refill acetaminophen (TYLENOL) 500 mg tablet Take 1 tablet (500 mg total) by mouth every 6 (six) hours if needed. amantadine (SYMMETREL) 100 mg capsule Take 1 capsule (100 mg total) by mouth 1 (one) time each day. blood-glucose meter misc Use daily or as directed for monitoring of diabetes. 1 each 0 gabapentin (NEURONTIN) 400 mg capsule Take 1 capsule (400 mg total) by mouth 2 (two) times a day. glucose blood test strip Check blood glucose daily. Freestyle strips 100 strip 1 hydrOXYzine HCL (ATARAX) 25 mg tablet TAKE 1 TABLET THREE TIMES A DAY NEEDED FOR ANXIETY 90 tablet 0 lancets lancets Use to check blood glucose daily 100 each 1 losartan (COZAAR) 50 mg tablet Take 1 tablet (50 mg total) by mouth 2 (two) times a day. 180 each 1 metFORMIN XR (GLUCOPHAGE-XR) 500 mg 24 hr tablet Take 1 tablet (500 mg total) by mouth 2 (two) times a day with meals. Do not crush, chew, or split. 180 each 0 OLANZapine (ZyPREXA) 7.5 mg tablet Take 1 tablet (7.5 mg total) by mouth at bedtime. spironolactone (ALDACTONE) 50 mg tablet traZODone (DESYREL) 50 mg tablet Take 1 tablet (50 mg total) by mouth at bedtime. venlafaxine XR (EFFEXOR-XR) 150 mg 24 hr capsule Take 1 capsule (150 mg total) by mouth 1 (one) time each day. ALLERGIES: Latex, Lisinopril, and [place] PHYSICAL EXAM: Blood pressure 106/76, pulse 81, temperature 36 ??C (96.8 ??F), temperature source Temporal, resp. rate 14, height 1.549 m (61 ), weight 84.9 kg (187 lb 3.2 oz). Body mass index is 35.37 kg/m??. BMI is greater than 25.0 (above the normal range) - see Plan APPEARANCE: Alert and in no acute distress EYES: PERRLA, conjunctiva and sclera normal EARS: External ears normal. Canals clear. TMs normal NOSE/SINUS: Nares normal. Septum midline. Mucosa normal. No drainage or sinus tenderness THROAT: No erythema or exudates NECK: Neck supple, no adenopathy, thyroid symmetric and of normal size HEART: RRR with normal S1 and S2 ,no murmurs, no gallops, no JVD appreciated LUNG: Clear to auscultation BREAST (FEMALE): Deferred/declined ABDOMEN: Bowel sounds normoactive, no bruits, soft, non-tender, without organomegaly or palpable masses BACK: No pain to palpation with good flexion and extension EXTREMITIES: Extremities warm and well perfused without clubbing, cyanosis, or edema NEURO: Awake, alert and oriented x 3 with symmetrical reflexes SKIN: Skin color, texture, turgor normal. No rashes or lesions LABS/IMAGING: Lab Results Component Value Date WBC 6.8 05/27/2024 HGB 12.5 05/27/2024 HCT 40.7 05/27/2024 MCV 93.6 05/27/2024 Lab Results Component Value Date NA 135 05/27/2024 K 4.4 05/27/2024 CO2 25 05/27/2024 CL 104 05/27/2024 BUN 16 05/27/2024 ALKPHOS 107 05/27/2024 Lab Results Component Value Date HGBA1C 7.4 (H) 05/27/2024 HGBA1C 6.0 11/06/2022 Lab Results Component Value Date MICROALBUR 11.1 05/30/2024 LDLCALC 127 (H) 05/27/2024 CREATININE 1.49 (H) 05/27/2024 MICROALBCREA 6 05/30/2024 IMPRESSION: 1. Routine general medical examination at a health care facility 2. Need for pneumococcal vaccination 3. Primary hypertension 4. Mixed hyperlipidemia 5. Type 2 diabetes mellitus with hyperglycemia, without long-term current use of insulin ([facility]) 6. Stage 3b chronic kidney disease ([facility]/HCC) PLAN: 1. Health maintenance: The patient presented for an evaluation of general health. As part of this visit, we reviewed the following issues, which are considered an essential part of preventative health in this age group: - Breast cancer screening, which includes clinical exam and mammograms annually - mammogram up-to-date - Colon cancer screening (colonoscopy every 10 years/annual FOBT plus flexi sigmoidoscopy every 5 years/double-contrast BE every 5 years/Cologuard every 3 years/Annual FOBT) - up to date - Cervical cancer testing every 1-5 years - testing not warranted - Osteoporosis prevention including calcium/vitamin D intake, weight bearing exercise & smokingcessation - Nutritional and exercise counseling - patient advised to pursue at least 30 minutes of exercise most days of the week and limit portion sizes - Counseling of injury prevention including fire prevention, smoke alarms and seat belt usage - Screening for depression - care for depression is ongoing - Recommendations about immunizations - patient is due for Pneumonia immunization and Td and is ordered for this - Recommendation of an eye exam for glaucoma every 2-4 years in this age range - patient will self-refer - Screening for substance abuse (including tobacco, alcohol, and recreational drugs) - see Substance & Sexuality section of medical record - Genetic cancer risk screening - already completed and negative - In addition to reviewing these issues, I have reviewed the following sections of the chart: Past Medical History, Social History, and Social History - Did you have a dental visit in the last 12 months? Yes - Did you have a dental problem in the last 6 months? No - HTN, blood pressure is controlled today. Continue on current antihypertensives. - Hyperlipidemia, LDL 127. She is not currently on statin medication. Started her on Lipitor 20 mg daily. Discussed side effects. Follow-up in 2 months - Type 2 diabetes. Fasting sugars at home have been around 129. Continue metformin 500 mg twice daily. She is tolerating the medication. Labs are ordered for the next office visit. Discussed diabeticdiet, exercise. Diabetic foot exam up-to-date. Reminded her about diabetic eye exam Orders Placed This Encounter Procedures Td vaccine greater than or equal to 7yo with preservative IM Pneumococcal conjugate 20 valent (Prevnar 20, PCV 20) 2mo and older Hemoglobin A1c Standing Status: Future Standing Expiration Date: 07/09/2025 Lipid panel with reflex to direct LDL Standing Status: Future Standing Expiration Date: 07/09/2025 Comprehensive metabolic panel Standing Status: Future Standing Expiration Date: 07/09/2025 HENRY Casillas on 07/09/2024 at 8:34 AM EDT * Rosemarie Wellington MA - 07/09/2024 8:00 AM EDT The patient acknowledges that they will be receiving the TD (Tetanus/Diptheria) vaccine: yes Immunization tab reviewed: It has been at least 9 years since last Td or Tdap vaccine administration. (May need sooner for high risk exposure): yes Female patient: If - may be able to receive immunization- check with provider: No LMP recorded. Patient has had a hysterectomy. confirmed: yes Denies history of Guillain [place] Syndrome. yes Denies allergy or reaction to previous Tetanus and Diptheria vaccination: yes Acknowledges reviewing the VIS for TD vaccine (copy made available): yes Denies moderate or severe illness or fever of >100 degrees F: yes Patient made aware that they may experience pain/swelling at the site after receiving a Tetanus or Diptheria vaccine. yes Agrees to wait in the office for 20 minutes after receiving the injection: yes TD vaccine administered IM. See Imm/Inj tab Electronically signed by: Rosemarie Wellington MA 07/09/2024 8:38 AM EDT Staff Review: Pneumococcal vaccine has been ordered. The following was reviewed: Immunization verified as PCV20 in Safety Leader: yes Immunization tab reviewed: If previous immunization of Pneumococcal vaccine noted in Immunization tab, order and time interval confirmed with provider: yes Female patient under 55 years old: Last LMP confirmed. If - may be able to receive immunization- check with provider Confirmed that patient is not receiving Shingrix on same day or within 28 days of the PPSV23: yes Patient: The following questions were reviewed with the patient: The patient acknowledges that they will be receiving the pneumococcal vaccine: yes Denies allergy or reaction to previous Pneumococcal vaccine or Diptheria toxoid: yes Acknowledges reviewing the VIS for PPSV23, for PCV13, or for PCV20 (copy made available): yes Denies moderate or severe illness or fever of >100 degrees F: yes Patient agrees to wait in the office for 20 minutes after receiving the injection: yes Pneumococcal vaccine administered: PCV20. See Imm/Inj tab Electronically signed by: Rosemarie Wellington MA 07/09/2024 8:38 AM EDT documented in this encounter Plan of Treatment Upcoming Encounters Date Type Department Care Team (Late st Contact Info) Description 07/10/2024 8:45 AM EDT Office Visit Orthopedics [address] [phone] Tristen Tavarez PA [address] [place] [address] 07/17/2024 9:45 AM EDT Office Visit Orthopedic Surgery - [place] [address] [phone] Severo Morrell, DPM [address] [address] 08/04/2024 11:30 AM EDT Appointment Radiology Department - [address] [phone] 09/10/2024 11:00 AM EDT Office Visit Adult Medicine [address] [phone] Denzel Reyes MD [address] [place] [address] Scheduled Orders Name Type Priority Associated Diagnoses Orde r Schedule Hemoglobin A1c Lab Routine Type 2 diabetes mellitus with hyperglycemia, without long-term current use of insulin ([facility]) Expected: 07/09/2024, Expires: 07/09/2025 Lipid panel with reflex to direct LDL Lab Routine Type 2 diabetes mellitus with hyperglycemia, without long-term current use of insulin ([facility]) 1 Occurrences starting 07/09/2024 until 07/09/2025 Comprehensive metabolic panel Lab Routine Primary hypertension Expected: 07/09/2024, Expires: 07/09/2025 documented as of this encounter Visit Diagnoses Diagnosis Routine general medical examination at a health care facility- Primary Need for pneumococcal vaccination Need for prophylactic vaccination against streptococcus pneumoniae (pneumococcus) Primary hypertension Unspecified essential hypertension Mixed hyperlipidemia Type 2 diabetes mellitus with hyperglycemia, without long-term current use of insulin ([facility]) Stage 3b chronic kidney disease ([facility]) Encounter for screening mammogram for breast cancer documented in this encounter Orders Immunization/Injection Count Last Ordered Date First Ordered Date PNEUMOCOCCAL CONJUGATE 20 VA LENT (PREVNAR 20, PCV 20) 2MO AND OLDER 1 07/09/2024 TD TETANUS DIPTHERIA (TDVAX) 7YO AND OLDER 1 07/09/2024 documented in this encounter Care Teams Glassware Defect Repairer Relationship Specialty Start Date End Date Denzel Reyes MD [address] [place] [address] PCP - General 10/26/22 documented as of this encounter
--- OUTSIDE RECORDS SUMMARY | 2024-07-09 11:24 | XMS_ITS | Clinical Summary ---
Author Organization [facility] Address [address] [place] [address] Care Team Providers Care Warehouse Checker Name Role Phone Denzel Reyes Primary Care Provid er Allergies Active Allergy Reactions Criticality Noted Date Comments Aloe Vera 10/25/2020 Other reaction(s): Other (see comments) Latex Medium 01/05/2009 Other reaction(s): Rash/Dermatitis She notes skin rash on hands when using latex gloves, although she continues to use them Lisinopril 12/08/2010 Other reaction(s): Other (see comments) cough [place] 05/21/2006 Medications Medication Sig Dispensed Refills Start Date End Date Status acetaminophen (TYLENOL EXTRA STRENGTH) 500 MG tablet Take 1 tablet (500 mg total) by mouth every 6 (six) hours as needed. 0 09/23/2020 Active gabapentin (NEURONTIN) 300 MG capsule Take 1 capsule (300 mg total) by mouth. 0 Active hydrOXYzine (ATARAX) 25 MG tablet Take 1 tablet (25 mg total) by mouth. 0 10/20/2022 Active losartan (COZAAR) tablet 50 mg Take 1 tablet (50 mg total) by mouth daily. 0 04/17/2022 Active OLANZapine (ZyPREXA) 7.5 MG tablet Take 1 tablet (7.5 mg total) by mouth every night at bedtime. 0 10/20/2022 Active tiZANidine (ZANAFLEX) 4 MG capsule TAKE 1 CAPSULE BY MOUTH AT BEDTIME NEEDED FOR MUSCLE SPASMS 0 04/05/2022 Active traZODone (DESYREL) 50 MG tablet Take 1 tablet (50 mg total) by mouth every night at bedtime. 0 08/19/2020 Active venlafaxine (EFFEXOR-XR) 150 MG 24 hr capsule Take 1 capsule (150 mg total) by mouth daily. 0 10/20/2022 Active Social History Tobacco Use Types Packs/Day Years Used Date Smoking Tobacco: Never Smokeless Tobacco: Never Tobacco Cessation:Counseling Given: Not Answered Alcohol Use Standard Drinks/Week Comments Never 0 (1 standard drink = 0.6 oz pur e alcohol) Sex and Gender Information Value Date Recorded Sex Assigned at Female 10/26/2022 3:19 PM EDT Gender Identity Not on file Sexual Orientation Not on file Job Start Date Occupation Industry Not on file Not on file Not on file Last Filed Vital Signs Vital Sign Reading Time Taken Comments Blood Pressure 155/93 08/28/2023 1:37 PM EDT Pulse 70 08/28/2023 1:37 PM EDT Temperature 36.1 ??C (97 ??F) 08/28/2023 1:37 PM EDT Respiratory Rate - - Oxygen Saturation 95% 08/28/2023 1:37 PM EDT Inhaled Oxygen Concentration - - Weight 90 kg (198 lb 6.4 oz) 08/28/2023 1:37 PM EDT Height 157.5 cm (5' 2 ) 08/28/2023 1:37 PM EDT Body Mass Index 36.29 08/28/2023 1:37 PM EDT Plan of Treatment Health Maintenance Due Date Last Done Comments Hepatitis C Screening 1962 Depression Screening 1974 BMI Counseling 02/20/1980 Preventative Health Evaluation 02/20/1980 Cervical Cancer Screening (Pap Smear) 1983 Colon Cancer Screening (Colonoscopy) 2007 Breast Cancer Screening (Mammogram) 02/20/2012 Shingrix-Zoster Vaccine (2 of 2) 04/12/2022 02/15/2022 COVID-19 Vaccine ( season) 2023 02/14/2023, 08/16/2020 Influenza Vaccine (#1) 2023 , 02/21/2021, 02/06/2020, Additional history exists DTap / Tdap / Td (2 - Td or Tdap) 03/23/2024 03/23/2014 RSV Adult > 60+ Yrs or (1 - 1-dose 75+ series) 2037 Hepatitis B Vaccines Aged Out No long er eligible based on patient's age to complete this topic Pneumococcal Vaccine Aged Out No long er eligible based on patient's age to complete this topic RSV Ped < 20 months Aged Out No longe r eligible based on patient's age to complete this topic Care Teams Warehouse Checker Relationship Specialty Start Date End Date Denzel Reyes MBBS [address] [place] [address] PCP - General Internal Medicine 10/26/22
--- OUTSIDE RECORDS SUMMARY | 2024-07-09 11:24 | XMS_ITS | Encounter Summary ---
Author Organization [facility] [address] Address [address] [place] [address] Care Team Providers Care Regional Controller Name Role Phone Denzel Reyes MD Primary Care Provider Reason for Visit * Reason Onset Date Comments Medication Problem 06/09/2024 MEtformin Encounter Details Date Type Department Care Team ([facility] st Contact Info) Description 06/09/2024 Telephone Adult Medicine [facility] [address] [place] [phone] Denzel Reyes MD [address] [place] [address] Medication Problem (MEtformin) Social History Tobacco Use Types Packs/Day Years Used Date Smoking Tobacco: Never Smokeless Tobacco: Never Alcohol Use Standard Drinks/Week Comments Never 0 [...] care for your loved ones. For example, child development teacher or elderly care for an older [...] on file documented as of this encounter Progress Notes * Lisa England RN - 06/09/2024 2:05 PM EST Started the medication last Sunday Advised this is a normal side effect that should start to improve for her. If later in the week sheis not getting any resolution then to call the office and let us know. She stated understanding and agreed with the plan * Pepper Mejia - 06/09/2024 1:56 PM EST Medication Problem: What is the name of the medication patient is having a problem with?: Metformin What is the problem?: patient is getting diarrhea from said medication Who is calling about the problem? : The patient Is this a NEW medication?: yes How long has the patient been taking this medication? 1 week Who prescribed this medication for the patient? Denzel reyes Who is patients PCP?: Denzel Reyse MD Payor: [employer] MEDICARE / Plan: [facility] MEDICARE ADVANTAGE / Product Type: *No Product type* / documented in this encounter Plan of Treatment Upcoming Encounters Date Type Department Care Team (Late st Contact Info) Description 07/10/2024 8:45 AM EDT Office Visit Orthopedics - [address] [phone] Tristen Tavarez PA [address] [place] [phone] 07/17/2024 9:45 AM EDT Office Visit Orthopedic Surgery [place] [phone] [phone] Severo Morrell, DPStevie [address] [address] 08/04/2024 11:30 AM EDT Appointment Radiology Department - [address] [phone] 09/10/2024 11:00 AM EDT Office Visit Adult Medicine East - [address] [phone] Denzel Reyes MD [address] [place] [address] documented as of this encounter Visit Diagnoses Not on filedocumented in this encounter Care Teams Regional Controller Relationship Specialty Start Date End Date Denzel Reyes MD [address] [place] [address] PCP - General 10/26/22 documented as of this encounter
--- OUTSIDE RECORDS SUMMARY | 2024-07-09 11:24 | XMS_ITS | Encounter Summary ---
Author Organization [facility] Address [address] [address] Phone Care Team Providers Care Cluster Bore Operator Name Role Phone Denzel Reyes Primary Care Provider [phone] Reason for Visit * Reason Comments Chronic Kidney Disease Encounter Details Date Type Department Care Team (Late st Contact Info) Description 07/01/2024 10:30 AM EST Office Visit [facility] [address] [address] Arline Jnae ARNP [address] [phone] Stage 3b chronic kidney disease (HCC) (Primary Dx); Hypertension Social History Tobacco Use Types Packs/Day [...] (182 lb) 07/01/2024 11:24 AM EST Height - - Body Mass Index 33.29 10/25/2020 3:27 PM EDT documented in this encounter Patient Instructions * Patient Instructions* Arline Jane ARNP - 07/01/2024 10:30 AM EST Blood pressure monitoring education: Monitor home blood pressure values after sitting for 5 minutes with back and arm support. Keep a log. Bring your log and blood pressure cuff to your next visit. documented in this encounter Progress Notes * Arline Jane ARNP - 07/01/2024 10:30 AM EST Images from the original note were not included. Patient Name: Citlali Nguyen, Female Date of : 1960, 64 y.o. Date: 07/01/2024 Orders Placed This Encounter PTH, intact Renal function panel CBC Urine Protein / creatinine ratio Urine Albumin / Creatinine Ratio Vitamin D 25 hydroxy Magnesium History of Present Illness Citlali Nguyen is a 64 y.o. female here in follow-up for h/o non proteinuric CKD Stage 3b and HTN. H/o T2DM, remains borderline, no medications for this. Generally feeling well without any complaints. Her blood pressures at home have averaged around 120/70 according to patient. Recently started on Metformin 500 mg BID for HgbA1c 7.4%. The following portions of the patient's chart were reviewed in this encounter and updated as appropriate: Allergies Meds Problems Med Hx Surg Hx Fam Hx Review of Systems Constitutional: Negative for chills, fever, weight gain and weight loss. HENT: Negative for hearing loss and nosebleeds. Eyes: Negative for blurred vision and double vision. Respiratory: Negative for cough and shortness of breath. Cardiovascular: Negative for chest pain, palpitations and leg swelling. Gastrointestinal: Negative for abdominal pain, diarrhea, nausea, vomiting and poor appetite. Genitourinary: Negative for dysuria, flank pain, frequency, hematuria and urgency. Musculoskeletal: Negative. Skin: Negative for rash. Neurological: Negative for dizziness, tingling, numbness and headaches. Endo/Heme/Allergies: Does not bruise/bleed easily. Psychiatric/Behavioral: Negative. Medication List Current Outpatient Medications Medication Sig Dispense Refill Acetaminophen Extra Strength 500 MG tablet Take 500 mg by mouth every 8 (eight) hours if needed amantadine (SYMMETREL) 100 MG capsule Take 100 mg by mouth 2 (two) times a day TAKE ONE TABS TWICE DAILY gabapentin (NEURONTIN) 300 MG capsule Take 300 mg by mouth in the morning and 300 mg in the eveningand 300 mg before bedtime. (Patient taking differently: Take 400 mg by mouth in the morning and 400mg before bedtime.) hydrOXYzine (ATARAX) 10 MG tablet Take 10 mg by mouth TAKE ONE TAB ONCE DAILY losartan (Cozaar) 50 MG tablet Take 1 tablet (50 mg total) by mouth 1 (one) time each day (Patient taking differently: Take 50 mg by mouth in the morning and 50 mg in the evening.) 30 tablet 11 metFORMIN XR (GLUCOPHAGE-XR) 500 MG 24 hr tablet Take 500 mg by mouth in the morning and 500 mg in the evening. Take with meals. DO NOT CRUSH CHEW OR SPLIT. OLANZapine (ZyPREXA) 7.5 MG tablet Take 7.5 mg by mouth every night spironolactone (ALDACTONE) 50 MG tablet Take 1 tablet (50 mg total) by mouth 1 (one) time each day 90 tablet 3 traZODone (DESYREL) 50 MG tablet Take 50 mg by mouth TAKE ONE TAB ONCE A DAY. venlafaxine XR (EFFEXOR-XR) 150 MG 24 hr capsule Take 150 mg by mouth 1 (one) time each day Do not crush or chew. No current facility-administered medications for this visit. Allergy List Allergies Allergen Reactions Aloe Vera Other (see comments) Lisinopril Other (see comments) [place] (Diagnostic) Other (see comments) Physical Exam BP 110/64 Pulse 61 Wt 182 lb (82.6 kg) SpO2 98% BMI 33.29 kg/m?? Vitals reviewed. Constitutional: She is oriented to person, place, and time. She does not appear ill. No distress. HEENT: Mouth/Throat: Oropharynx is clear and moist. Eyes: Conjunctivae are normal. Neck: No JVD present. Cardiovascular: Normal rate and regular rhythm. She exhibits no edema. Pulmonary/Chest: Effort normal and breath sounds normal. Abdominal: Soft. Neurological: She is alert and oriented to person, place, and time. Skin: Skin is warm and dry. Psychiatric: She has a normal mood and affect. Her behavior is normal. Judgment normal. Labs Chemistry Lab Units 05/27/24 1400 12/25/23 1314 07/03/23 0930 07/03/23 0927 CREATININE mg/dL 1.49* 1.29* -- 1.4* BUN mg/dL 16 14 -- 14 POTASSIUM mmol/L 4.4 4.4 -- 4.9 SODIUM mmol/L 135 139 -- 140 CO2 mmol/L 25 23 -- 24 CHLORIDE mmol/L 104 102 -- 104 ALBUMIN g/dL 4.3 4.4 -- 4.5 EGFRNAFR ML/MIN/1.73 M2 -- -- -- 42 EGFR mL/min/1.73m2 40* 47* -- -- WBC AUTO x10E3/uL -- 5.3 5.3 -- HEMATOCRIT % -- 36.9 37.3 -- HEMOGLOBIN g/dL -- 12.0 11.8 -- PLATELETS AUTO x10E3/uL -- 227 233 -- Bone Mineral Lab Units 05/27/24 1400 12/25/23 1314 07/03/23 0930 07/03/23 0927 CALCIUM mg/dL 10.0 9.7 -- 9.7 PHOSPHORUS mg/dL -- 3.2 -- 3.4 ALK PHOS unit/L 107 -- -- -- PTH pg/mL -- 35 73* -- VITAMIN D NG/ML -- -- -- 26.8 VIT D 25 HYDROXY ng/mL -- 32.2 -- -- ASSESSMENT/PLAN: CKD Stage 3b r/t Hypertensive Nephrosclerosis: -Stable Creatinine -Normal Lytes -No Anemia -Good Bone mineralization levels -Maintain good BP control -Avoid Nephrotoxins Hypertension: -Blood pressure is well controlled -Target BP <120/80 - c/w Spironolactone 50 mg QD and Losartan 50 mg QD -No Edema -No medication changes made -Continue monitoring home blood pressures, bring in readings to visit -Follow low NA diet, weight loss encouraged for lifestyle modifications -Avoid NSAIDs/Decongestant medications 3. Proteinuria: Normal microalb/creat ratio as of 05/30/24 C/w Losartan Consider adding Farxiga for renal protection Maintain good BP control Return visit in 6 months for follow-up with labs to be done a week prior. CARL Logan Cosigned by Henry Wong MD at 07/01/2024 2:21 PM EST documented in this encounter Plan of Treatment Upcoming Encounters Date Type Department Care Team (Late st Contact Info) Description 01/01/2025 10:15 AM EDT Office Visit [facility] [address] [phone] Arline Jane ARNP [address] [phone] Scheduled Orders Name Type Priority Associated Diagnoses Orde r Schedule PTH, intact Lab Routine Stage 3b chronic kidney disease (HCC) Hypertension Expected: 11/28/2024, Expires: 01/27/2025 Renal function panel Lab Routine Stage 3b chronic kidney disease (HCC) Hypertension Expected: 11/28/2024, Expires: 01/27/2025 CBC Lab Routine Stage 3b chronic kidney disease (HCC) Hypertension Expected: 11/28/2024, Expires: 01/27/2025 Urine Protein / creatinine ratio Lab Routine Stage 3b chronic kidney disease (HCC) Hypertension Expected: 11/28/2024, Expires: 01/27/2025 Urine Albumin / Creatinine Ratio Lab Routine Stage 3b chronic kidney disease (HCC) Hypertension Expected: 11/28/2024, Expires: 01/27/2025 Vitamin D 25 hydroxy Lab Routine Stage 3b chronic kidney disease (HCC) Hypertension Expected: 11/28/2024, Expires: 01/27/2025 Magnesium Lab Routine Stage 3b chronic kidney disease (HCC) Hypertension Expected: 11/28/2024, Expires: 01/27/2025 documented as of this encounter Visit Diagnoses Diagnosis Stage 3b chronic kidney disease (HCC)- Primary Hypertension documented in this encounter Care Teams Cluster Bore Operator Relationship Specialty Start Date End Date Denzel Reyes [address] [place] [address] PCP - General 07/01/24 documented as of this encounter
--- OUTSIDE RECORDS SUMMARY | 2024-07-09 11:24 | XMS_ITS | Encounter Summary ---
Author Organization [facility] Address [address] [place] [address] Phone Care Team Providers Care High Speed Warper Tender Name Role Phone Denzel Reyes Primary Care Provider [phone] Encounter Details Date Type Department Care Team (Late Contact Info) Description 10/25/2020 Orders Only [facility] [address] [place] [address] Provider, MD Biju [address] [place], [place] [id number] Social History Tobacco Use Types Packs/Day Years Used Date Smoking Tobacco: Never Alcohol Use Standard Drinks/Week Comments No 0 (1 standard drink = 0.6 oz pur e alcohol) Comments Unknown Sex and Gender Information Value Date Recorded Sex Assigned at Not on file Legal Sex Female 4:46 PM EST Gender Identity Not on file Sexual Orientation Not on file COVID-19 Exposure Response Date Recorded In the last month, have you been in contact with someone who was confirmed or suspected to have Coronavirus / COVID-19? No / Unsure 10/25/2020 3:01 PM EDT documented as of this encounter Plan of Treatment Upcoming Encounters Date Type Department Care Team (Late st Contact Info) Description 01/01/2025 10:15 AM EDT [facility] Visit [facility] [address] [facility] [address] [place] [address] Arline Jane ARNP [address] [facility] [address] [place] [address] documented as of this encounter Procedures Procedure Name Priority Date/Time Associated Diagnosis Comments EXT RESULT ENTRY Routine 05/25/2020 documented in this encounter Results * EXT RESULT ENTRY (05/25/2020) us Historical Provider LAB BLOOD ORDERABLES Eloise l Result documented in this encounter Visit Diagnoses Not on filedocumented in this encounter Care Teams High Speed Warper Tender Relationship Specialty Start Date End Date Denzel Reyes [address] [place] [address] PCP - General 07/01/24 documented as of this encounter
--- OUTSIDE RECORDS SUMMARY | 2024-07-09 11:24 | XMS_ITS | Clinical Summary ---
Author Organization [employer] Address [address] [facility] [address] [place] [address] Care Team Providers Care Peace Officer Name Role Phone Unavailable Primary Care Provider Unavailabl e Encounters Date Type Department Care Team Description 05/28/2024 Telephone [facility] MEDICINE [address] [place] [address] Eduardo Latif MD from Last 3 Months Social History Tobacco Use Types Packs/Day Years Used Date Smoking Tobacco: Never Assessed Comments Unknown Sex and Gender Information Value Date Recorded Sex Assigned at Female 11/09/2023 11:36 AM EDT Legal Sex Female 11:35 AM EDT Gender Identity Female 11/09/2023 11:36 AM EDT Sexual Orientation Not on file Plan of Treatment Health Maintenance Due Date Last Done Comments CT Colonography 1962 Colonoscopy 1962 Colorectal Cancer Screening 1960 Depression Screening 1960 FIT DNA/Cologuard 1962 FIT 1962 FOBT 1960 HIV Screening 1960 Lipid Panel 1962 SDOH Screening 1960 Sigmoidoscopy 1962 Alcohol/Substance Use Screening 1974 Tobacco Screening 1974 Hepatitis C Screening 02/20/1980 Pap Smear 1983 Cervical Cancer Screening 02/20/1992 HPV/Cotest 02/20/1992 Mammogram 2002 Pneumococcal Vaccine: 50+ Years (1 of 1 - PCV) 02/20/2012 Zoster Vaccines (2 of 2) 04/12/2022 02/15/2022 COVID-19 Vaccine (3 - season) 2023 02/14/2023, 03/16/2022 Influenza Vaccine (#1) 2023 , 01/28/2022, 02/21/2021, Additional history exists DTaP/Tdap/Td Vaccines (2 - Td or Tdap) 03/23/2024 03/23/2014, 06/21/2004 RSV Patients and Patients Aged 60 years or older (1 - 1-dose 75+ series) 2037 HIB Vaccines Aged Out No longer eligi ble based on patient's age to complete this topic HPV Vaccines Aged Out No longer eligi [...] patient's age to complete this topic Meningococcal Vaccine Aged Out No gina josh eligible based on patient's age to complete this topic RSV under 20 months Aged Out No longe r eligible based on patient's age to complete this topic Rotavirus Vaccines Aged Out No longer eligible based on patient's age to complete this topic Insurance [facility] MEDIC[facility] REPLACEMENT
[2024-07-21 09:03] VITALS: BMI 34.2
== END 2024-07-09 10:39 | disposition home or self-care (01) ==
LOC: HO.ENCR 10:01
PROVIDERS: Visit Provider Dietitian, Registered
DX: E11.9 Type 2 diabetes mellitus without complications (principal)

== ENCOUNTER → 2024-07-09 10:01 | Outpatient (BNVA) | payer MEDICARE, SELFPAY | PROVIDERS: Visit Provider Dietitian, Registered | DX: E11.9 Type 2 diabetes mellitus without complications (principal) | CPT/HCPCS: 97802 ==

== ENCOUNTER 2024-08-07 10:23 | Outpatient (AMB) | payer OTHER, SELFPAY ==
--- NOTE | 2024-08-07 10:34 | A.OFFVIS_ITS ---
VS Expanded 08/07/24 10:35 Height 5 ft 2 in Weight 185 lb 6.54 oz BMI 33.9 Intake Visit Reasons: t2dm Allergies lisinopril Adverse Reaction (Mild, Verified 11/07/22 14:33) Cough amoxicillin Adverse Reaction (Verified 11/07/22 14:33) Diarrhea Nutrition Presentation Details: Pt presents for MNT f/u T2DM Exercises: water aerobics Sunday through Fridays 45 min Typical meal B/L Banana [place] muffin with peanut butter and water 3pm : skinny pop or rice cake or fruit , water 5 : salad with chicken or pasta with chicken Reports choosing lower sugar options when having increased appetite denies vomiting feels ok, gradually working on reducing on sugars/pastries BS Monitoring Most Recent Diabetes Results: Cholesterol 203 mg/dL 10/04/22 HDL Cholesterol 41 mg/dL 10/04/22 Triglycerides 259 mg/dL 10/04/22 Creatinine 1.15 mg/dL (0.5-1.4) 10/04/22 Blood Urea Nitrogen 7 mg/dL (9-16) L 10/04/22 Sodium 144 mmol/L (135-145) 10/04/22 Potassium 4.5 mmol/L (3.3-5.1) 10/04/22 Chloride 109 mmol/L (96-108) H 10/04/22 Carbon Dioxide 25 mmol/L (22-29) 10/04/22 Calcium 9.3 mg/dL (8.4-10.2) 10/04/22 AST 40 U/L (5-31) H 10/04/22 ALT 36 U/L (0-31) H 10/04/22 Total Protein 6.5 g/dL (6.5-8.0) 10/04/22 Albumin 3.9 g/dL (3.5-5.0) 10/04/22 [facility] Medical History Achilles tendonitis, bilateral Back pain of lumbar region with sciatica Bilateral plantar fasciitis CKD (chronic kidney disease), stage III Depression with anxiety HTN (hypertension) Psychiatric pseudoseizure Social History Household Members: Spouse Housing: House Do you presently have visiting nurse or other home services: No Patient Tobacco Use Status: Never used Tobacco Second Hand Smoke Exposure: No Sexual orientation: Straight/Heterosexual Assessment & Plan Assessment & Plan (1) T2DM (type 2 diabetes mellitus): Code(s): E11.9 - Type 2 diabetes mellitus without complications Category: Medical Plan: Wt: 85 Kg ( 07/22 ), 84 kg (08/22) Est kcal needs as per MSJ: 1800 -1900 (40% carb, 30% protein/fat) Est fluid needs as per 25-30 ml/d: 2600 Est prot per day as per 1 g/kg bw: 85 Recommend fiber intake : 8-10 g per day and gradually increase to 25-28 g per day for women and 35-38 g for men or as tolerated Recommend sodium intake per day : less than 2000 mg Educated patient on: ( R = reviewed V = verbalizes understanding N/R = needs review N/A = not applicable * Food sources of carbohydrate, adequate serving sizes and its role in various health conditions: R * Differences between complex carbohydrates a simple carbohydrates, role of fiber in diet: R * Lean protein sources of foods: R * Differences between types of fats and role in diet (mono on saturated fat fatty acids, saturated fatty acids, trans fats): R general low fat * Food sources of sodium in salt and healthy modifications for heart health in kidney health: R V R/V * Vitamins and minerals: R * Healthy plate method concept: R V * Physical activity: Benefits a precaution: R * Hypoglycemia protocol (rule of 15): R V N/R * Dietary prevention of Hyperglycemia: R Patient Instructions: Work on choosing low sodium food options low sodium cracker, low sodium deli meats , lower sodium cereals , see list of low sodium options continue working on having a fruit in place of pastries Coding Level of Care Code Nutr Indiv Subseq ([id number]) Diagnoses T2DM (type 2 diabetes mellitus) E11.9 Time Spent (min) 25
[2024-08-07 10:35] VITALS: BMI 33.9
--- OUTSIDE RECORDS SUMMARY | 2024-08-07 12:17 | XMS_ITS | Clinical Summary ---
Author Organization [facility] [address] [place] [address] [place] [phone] Phone Care Team Providers Care Mortgage Funder Name Role Phone [place] Reyes MD Primary [...] cough Other reaction(s): Other (see comments) cough [place] 05/21/2006 Medications gabapentin (NEURONTIN) 400 mg capsule [...] hyperglycemia, without long-term current use of insulin ([facility] V24, [facility] V28),Type 2 diabetes mellitus with obesity ([facility] V24, [facility] V28) Use daily or as directed for monitoring of diabetes. 1 each 5 Active glucose blood test stripIndication s:Type 2 diabetes mellitus with hyperglycemia, without long-term current use of insulin ([facility] V24, [facility] V28),Type 2 diabetes mellitus with obesity ([facility] V24, [facility] V28) Check blood glucose daily. Freestyle strips 100 strip 1 5 Active lancets lancetsIndicati ons:Type 2 diabetes mellitus with hyperglycemia, without long-term current use of insulin ([facility] V24, [facility] V28),Type 2 diabetes mellitus with obesity ([facility] V24, [facility] V28) Use to check blood glucose daily 100 [...] 30 each 5 5 01/06/20 25 Active diclofenac (Voltaren Arthritis Pain) 1 % topical gel Apply 4 g topically 2 (two) times a day. 240 g 1 5 09/16/19 25 Active Hospital, Clinic, or Other Facility Administered Medication Ordered Dose Route Frequency Start Date End Date Status lidocaine (XYLOCAINE) 1 % injection 4 mLIndications:Primary osteoarthritis of both knees 4 mL inj Once PRN Procedure 07/10/2024 07/10/2024 Ended methylPREDNISolone acetate (DEPO-Medrol) injection 80 mgIndications:Primary osteoarthritis of both knees 80 mg IAtc Once PRN Procedure 07/10/2024 07/10/2024 Ended Active Problems Problem Noted Date Diagnosed Date Newly diagnosed diabetes ([facility] V24, [facility] V 28) 05/30/2024 Type 2 diabetes mellitus wit h obesity ([facility] V24, [facility] V28) 05/30/2024 Type 2 diabetes mellitus wit h hyperglycemia, without long-term current use of insulin ([facility] V24, [facility] V28) 05/30/2024 Mixed hyperlipidemia 03/16/2023 Major depressive disorder wi th psychotic features ([facility] V24, [facility] V28) 10/20/2022 Localized edema 10/18/2022 Syncope 10/13/2022 Prediabetes 02/10/2022 Chronic right-sided low back pain without sciati ca 06/23/2020 PTSD (post-traumatic stress disorder) 06/23/2020 Suicide attempt ([facility] V24, [facility] V28) 06/23 Overview (04/07/2024): 04/2020, medication overdose. Now s/p partial hospitalization program through [facility] Onychomycosis 10/05/2019 CKD (chronic kidney disease) stage 3, GFR 30-59 ml/min ([facility] V24, [facility] V28) 11/06/2018 Anxiety 06/02/2013 Dissociative identity disorder ([facility] V24, [facility] V28) 06/02/2013 Obesity 01/21/2012 Bulimia nervosa 10/19/2009 Tremor, unspecified 10/11/2006 Overview (04/07/2024): on amantadine Depressive disorder 05/21/2006 Hypertension 04/26/2005 Obstructive sleep apnea 04/26/2005 Overview (04/07/2024): On CPAP since ~ 200606/01/2004: [facility]. [facility] Polysomnogram treatment study. Date 04/21/2019. [...] Encounters Date Type Department Care Team Description 08/04/2024 11:19 AM EDT - 08/04/2024 11:59 PM EDT Hospital Encounter Radiology Department - [address] [phone] Encounter for screening mammogram for breast cancer Discharge Disposition: Home or Self Care 07/17/2024 9:45 AM EDT Office Visit Orthopedic Surgery - [address] [phone] Severo Morrell DPM Tendonitis, Achilles, left (Primary Dx) 07/10/2024 8:45 AM EDT Office Visit Orthopedics [address] [phone] Tristen Tavarez PA Primary osteoarthritis of both knees (Primary Dx); Chronic pain of both knees 07/09/2024 8:00 AM EDT Office Visit Adult Medicine [address] [phone] Regina hTurston PA Routine general medical examination at a health care facility (Primary Dx); Need for pneumococcal vaccination; Primary hypertension; Mixed hyperlipidemia; Type 2 diabetes mellitus with hyperglycemia, without long-term current use of insulin (CMS/HCC V24, CMS/HCC V28); Stage 3b chronic kidney disease (CMS/HCC V24, CMS/HCC V28) 06/26/2024 10:30 AM EST Consult Orthopedics [address] [phone] Tristen Tavarez PA Primary osteoarthritis of both hips (Primary Dx); Chronic pain of both knees 06/09/2024 Telephone Adult Medicine [address] [phone] [place] Reyes MD Medication Problem (MEtformin) 05/30/2024 9:30 AM EST Office Visit Adult Medicine [address] [phone] [place] Reyes MD Newly diagnosed diabetes ([facility] V24, [facility] V28) (Primary Dx); Type 2 diabetes mellitus with hyperglycemia, without long-term current use of insulin ([facility] V24, [facility] V28); Type 2 diabetes mellitus with obesity ([facility]/HCC V24, [facility] V28); Stage 3b chronic kidney disease ([facility]/HCC V24, [facility] V28) 05/28/2024 Telephone Adult Medicine [address] [phone] [place] Reyes MD 05/27/2024 1:26 PM EST - 05/27/2024 11:59 PM EST Hospital Encounter [address] [phone] Chronic pain of both knees Discharge Disposition: Home or Self Care 05/27/2024 1:00 PM EST Office Visit Adult [address] [phone] [place] Reyes MD Chronic pain of both knees (Primary Dx); Stage 3b chronic kidney disease ([facility]/HCC V24, [facility]/HCC V28); Hypertension, unspecified type; Mixed hyperlipidemia; Prediabetes; Major depressive disorder with psychotic features ([facility] V24, [facility] V28); PTSD (post-traumatic stress disorder) from Last 3 [...] your loved ones. For example, child development consultant or elderly care for an older adult? [...] on file Not on file Obstetrics History Para Term AB IAB SAB Ectopic Multiple Livin g Live Births 2 2 2 2 Date Outcome GA Total Labor Labor/2nd/3rd Weight Sex Type Anes PTL Julieta A1 A5 Name Clin Term Term Last Filed Vital Signs Vital Sign Reading Time Taken Comments Blood Pressure 106/76 07/09/2024 8:06 AM EDT Pulse 81 07/09/2024 8:06 AM EDT Temperature 36 ??C (96.8 ??F) 07/09/2024 8:06 AM EDT Respiratory Rate 14 07/10/2024 8:44 AM EDT Oxygen Saturation - - Inhaled Oxygen Concentration - - Weight 84.8 kg (187 lb) 07/17/2024 9:56 AM EDT Height 154.9 cm (5' 0.98 ) 07/17/2024 9:56 AM ED T Body Mass Index 35.35 07/17/2024 9:56 AM EDT Plan of Treatment Upcoming Encounters Date Type Department Care Team (Late st Contact Info) Description 09/10/2024 11:00 AM EDT Office Visit Adult Medicine [address] [phone] [place] Reyes MD [address] [place] [address] 10/10/2024 9:30 AM EDT Office Visit Orthopedics [address] [place] [phone] Tristen Tavarez PA [address] [place] [address] 10/20/2024 10:30 AM EDT Office Visit Orthopedic Surgery - [place] [address] [phone] Severo Morrell, DPM [address] [phone] Health Maintenance Due Date Last Done Comments Diabetes: Annual Retina Eye Exam 02/20/1972 RSV Immunization Adult Patients (1 - Risk 60-74 years 1-dose series) 2022 Medicare Annual Wellness Visit 04/08/2022 Diabetes: Blood Sugar Control Test (HGBA1C) 02/03/2025 08/04/2024, 05/27/2024, 11/06/2022 Depression Screening 05/27/2025 05/27/2024 Social Influencers of Health Screening 05/27/2025 05/27/2024 Diabetes: Annual Urine Albumin-Creatinine Ratio (uACR) 05/30/2025 05/30/2024, 01/21/2012 Diabetes: Annual Foot Exam 05/30/2025 05/30/2024 Diabetes: Annual GFR (Glomerular Filtration Rate) 08/04/2025 08/04/2024, 05/27/2024, 03/20/2023 Hypertension/CHF/CAD Annual BMP Blood Test 08/04/2025 08/04/2024, 05/27/2024, 03/20/2023 Breast Cancer Screening 08/04/2026 08/05/19 25, 07/25/2023, 07/18/2022, Additional history exists Cholesterol Screening (Lipid Panel) 08/04/2029 08/04/2024, 05/27/2024, 03/20/2023 Colorectal Cancer Screening: Colonoscopy 06/09/2032 [...] age to complete this topic Meningococcal B Vaccine Aged Out No l onger eligible based on patient's age to complete this topic RSV Immunization Patients Under 20 months Aged Out No longer eligible based on patient's age to complete this topic Varicella Vaccines Aged Out No longer eligible based on patient's age to complete this topic Procedures Procedure Name Priority Date/Time Associated Diagnosis Comments MG MAMMO DIGITAL SCREENING W TAY BILAT Routine 08/04/2024 11:29 AM EDT Encounter for screening mammogram for breast cancer HEMOGLOBIN A1C Routine 08/04/2024 11:12 AM EDT Type 2 diabetes mellitus with hyperglycemia, without long-term current use of insulin ([facility] V24, [facility] V28) LIPID PANEL WITH REFLEX TO DIRECT LDL Routine 08/04/2024 11:12 AM EDT Type 2 diabetes mellitus with hyperglycemia, without long-term current use of insulin ([facility] V24, [facility] V28) COMPREHENSIVE METABOLIC PANEL Routine 08/04/2024 11:12 AM EDT Primary hypertension OR ARTHROCENTESIS/ASPIRA TION/INJECTION MAJOR JOINT/BURSA W/O U/S GUIDANCE Routine 07/10/2024 8:45 AM EDT Primary osteoarthritis of both knees OR ARTHROCENTESIS/ASPIRA TION/INJECTION MAJOR JOINT/BURSA W/O U/S GUIDANCE Routine 06/26/2024 10:30 AM EST Primary osteoarthritis of both hips MICROALBUMIN CREATININE URINE RATIO Routine 05/30/2024 10:10 AM EST Type 2 diabetes mellitus with hyperglycemia, without long-term current use of insulin ([facility] V24, [facility] V28) Type 2 diabetes mellitus with obesity ([facility] V24, [facility] V28) Stage 3b chronic kidney disease ([facility] V24, [facility] V28) POC GLUCOSE Routine 05/30/2024 9:45 AM EST Newly diagnosed diabetes ([facility] V24, [facility] V28) CBC WITH AUTO DIFFERENTIAL Routine 05/27/2024 2:00 PM EST Hypertension, unspecified type Chronic pain of both knees CBC AND DIFFERENTIAL Routine 05/27/2024 2:00 PM EST Hypertension, unspecified type Chronic pain of both knees COMPREHENSIVE METABOLIC PANEL Routine 05/27/2024 2:00 PM EST Stage 3b chronic kidney disease ([facility] V24, [facility] V28) Hypertension, unspecified type Chronic pain of both knees LIPID PANEL WITH REFLEX TO DIRECT LDL Routine 05/27/2024 2:00 PM EST Mixed hyperlipidemia HEMOGLOBIN A1C Routine 05/27/2024 2:00 PM EST Prediabetes XR KNEE 4+ VIEWS BILAT Routine 05/27/2024 1:38 PM EST Chronic pain of both knees COLONOSCOPY Routine 06/09/2022 HEPATITIS C SCREENING Routine 07/12/2015 from Last 3 Months or Most Recently Relevant to Health Maintenance Results * MG Mammo Digital Screening w Tay bilat (08/04/2024 11:29 AM EDT) Anatomical Region Laterality Modality Breast Bilateral Mammography 08/05/2024 1:52 PM EDT Impressions 08/05/2024 1:52 PM EDT No mammographic evidence of malignancy. BREAST DENSITY: B - There are scattered areas of fibroglandular density. BI-RADS CATEGORY: 1 - NEGATIVE RECOMMENDATION: Screening bilateral mammogram is recommended in 1 year. MAMMO LOCATION: [facility], [address] [place] [address], [phone], . -------- FINAL REPORT -------- Dictated By: Virginia Britton Dictated Date: 08/05/2024 13:52 ET Assigned Physician: Virginia Britton Reviewed and Electronically Signed By: Virginia Britton Signed Date: 08/05/2024 13:52 ET Workstation ID: [id number] Transcribed By: Self Edit Transcribed Date: 08/05/2024 13:52 ET Narrative 08/05/2024 1:52 PM EDT EXAM: Screening Mammogram CLINICAL: 64 years old, Female, routine annual exam. COMPARISON: 07/25/2023 and as far back as 07/07/2020 ?? TECHNIQUE: Bilateral MLO and CC views were obtained digitally with 3-D mammogram (digital breast tomosynthesis). Computer-aided detection was utilized in evaluation of this exam (CAD). FINDINGS: No new suspicious mass, architectural distortion, or suspicious calcifications. Procedure Note Virginia Britton MD - 08/05/2024 EXAM: Screening Mammogram CLINICAL: 64 years old, Female, routine annual exam. COMPARISON: 07/25/2023 and as far back as 07/07/2020 TECHNIQUE: Bilateral MLO and CC views were obtained digitally with 3-Dmammogram (digital breast tomosynthesis). Computer-aided detection wasutilized in evaluation of this exam (CAD). FINDINGS: No new suspicious mass, architectural distortion, or suspiciouscalcifications. IMPRESSION: No mammographic evidence of malignancy. BREAST DENSITY: B - There are scattered areas of fibroglandular density. BI-RADS CATEGORY: 1 - NEGATIVE RECOMMENDATION: Screening bilateral mammogram is recommended in 1 year. MAMMO LOCATION: [facility], [address] [place] [address], [phone], . -------- FINAL REPORT -------- Dictated By: Virginia Britton Dictated Date: 08/05/2024 13:52 ET Assigned Physician: Virginia Britton Reviewed and Electronically Signed By: Virginia Britton Signed Date: 08/05/2024 13:52 ET Workstation ID: [id number] Transcribed By: Self Edit Transcribed Date: 08/05/2024 13:52 ET us Den[place] Reyes MD IMG BI PROCEDURES Eloise l Result * (ABNORMAL) Lipid panel with reflex to direct LDL (08/04/2024 11:12 AM EDT) Only the most recent of2 resultswithin the time period is included. Cholesterol 143 0 - 200 mg/dL LAB CHEMISTRY METHOD 08/04/2024 3:[address] [facility] Triglycerides 202(H) 0 - 150 mg/dL LAB CHEMISTRY METHOD 08/04/2024 3:[address] [facility] HDL 48 >=40 mg/dL LAB CHEMISTRY METHOD 08/04/2024 3:[address] [facility] LDL Calculated 55 0 - 100 mg/dL LAB CHEMISTRY METHOD 08/04/2024 3:[address] [facility] VLDL Cholesterol Ron 40.4 mg/dL LAB CHEMISTRY METHOD 08/04/2024 3:[address] [facility] Non HDL Chol. (LDL+VLDL) 95 <145 mg/dL LAB CHEMISTRY METHOD 08/04/2024 3:[address] [facility] Chol/HDL Ratio 3.0 0.0 - 4.4 LAB CHEMISTRY METHOD 08/04/2024 3:[address] [facility] Blood Venous blood specimen / Unknown Venipuncture / Unknown 08/04/2024 11:12 AM EDT 08/04/2024 1:03 PM EDT [employer] [facility] LAB BLOOD ORDERABLES Final Resul t Performing Organization Address [facility] de Phone Number [facility] [address] [place] [address], * (ABNORMAL) Hemoglobin A1c (08/04/2024 11:12 AM EDT) Only the most recent of2 resultswithin the time period is included. Hemoglobin A1C 7.1(H) <6.5 % LAB CHEMISTRY METHOD 08/05/2024 10:[address] [facility] Mean Bld Glu Estim. 157 mg/dL LAB CHEMISTRY METHOD 08/05/2024 10:[address] [facility] Blood Venous blood specimen / Unknown Venipuncture / Unknown 08/04/2024 11:12 AM EDT 08/04/2024 11:26 AM EDT [employer] LAB BLOOD ORDERABLES Final Resul t Performing Organization Address [facility]/ZIP Co de Phone Number [facility] [address] [place] [address], [place] [phone] * (ABNORMAL) Comprehensive metabolic panel (08/04/2024 11:12 AM EDT) Only the most recent of2 resultswithin the time period is included. Sodium 135 133 - 145 mmol/L LAB CHEMISTRY METHOD 08/04/2024 3:[address] [facility] Potassium 4.7 3.5 - 5.5 mmol/L LAB CHEMISTRY METHOD 08/04/2024 3:15 PM [facility] Chloride 103 96 - 110 mmol/L LAB CHEMISTRY METHOD 08/04/2024 3:15 PM [facility] CO2 25 21 - 32 mmol/L LAB CHEMISTRY METHOD 08/04/2024 3:15 PM [facility] Anion Gap 7 3 - 11 LAB CHEMISTRY METHOD 08/04/2024 3:15 PM [facility] Glucose 159(H) 70 - 100 mg/dL LAB CHEMISTRY METHOD 08/04/2024 3:15 PM [facility] BUN 18 5 - 25 mg/dL LAB CHEMISTRY METHOD 08/04/2024 3:15 PM [facility] Creatinine 1.67(H) 0.50 - 1.10 mg/dL LAB CHEMISTRY METHOD 08/04/2024 3:15 PM [facility] eGFR 34(L) >=60 mL/min/1. 73m2 LAB CHEMISTRY METHOD 08/04/2024 3:15 PM [facility] Comment:Calculation based on the??Chronic Kidney Disease Epidemiology Collaboration (CKD-EPI) equation refit??without adjustment for race. BUN/Creatinine Ratio 10.8 LAB CHEMISTRY METHOD 08/04/2024 3:15 PM [facility] Calcium 9.7 8.5 - 10.5 mg/dL LAB CHEMISTRY METHOD 08/04/2024 3:15 PM [facility] AST (SGOT) 19 10 - 42 unit/L LAB CHEMISTRY METHOD 08/04/2024 3:15 PM [facility] ALT (SGPT) 31 10 - 60 unit/L LAB CHEMISTRY METHOD 08/04/2024 3:15 PM [facility] Alkaline Phosphatase 105 42 - 121 unit/L LAB CHEMISTRY METHOD 08/04/2024 3:15 PM [facility] Total Protein 7.4 6.0 - 8.0 g/dL LAB CHEMISTRY METHOD 08/04/2024 3:[address] [facility] Albumin 4.2 3.2 - 5.0 g/dL LAB CHEMISTRY METHOD 08/04/2024 3:[address] [facility] Total Bilirubin 0.3 0.0 - 1.4 mg/dL LAB CHEMISTRY METHOD 08/04/2024 3:[address] [facility] Blood Venous blood specimen / Unknown Venipuncture / Unknown 08/04/2024 11:12 AM EDT 08/04/2024 1:03 PM EDT us Regina Bertrand [facility] LAB BLOOD ORDERABLES Final Resul t [facility] [address] [place] [address], * OR ARTHROCENTESIS/ASPIRATION/INJECTION MAJOR JOINT/BURSA W/O U/S GUIDANCE (07/10/2024 8:45 AM EDT) Narrative David Cueto MD - 07/10/2024 8:45 AM EDT HENRY Suazo ? 07/10/2024 ??9:11 AM L Inj/Asp: L knee Indications: pain Details: 22 G needle, anterolateral approach Medications: 4 mL lidocaine 1 %; 80 mg methylPREDNISolone acetate 80 mg/mL Outcome: tolerated well, no immediate complications Informed Consent: ??Site: ??Knee ??Laterality: ??Left ??Relevant images/test results available and reviewed: yes ?Health status cleared: ??Yes ??Procedure/treatment, purpose, treatment alternatives, risks/potential complications and benefits explained: yes ?Risk/complications/benefits details: ??Risks include but are not limited to: The treatment may not accomplish the desired results. ??Additionally bleeding, infection, damage to tendon, nerve, cartilage, muscle; thinning or lightening of the skin in the area of injection; flushing or redness of the face, elevated blood pressure or blood sugar, allergic reaction, rash, increased pain Benefits include relief of inflammation and pain ??Patient questions answered: yes ?Patient agrees, verbalizes understanding, and wants to proceed: yes ?Consent given by: ??Patient ??Informed consent discussion completed by Physician/GAURANG with patient: ?? Verbal ??Pre-procedure timeout performed: yes ?? Tristen [facility] IN CLINIC/BEDSIDE ORDERABLES Fin al Result * OR ARTHROCENTESIS/ASPIRATION/INJECTION MAJOR JOINT/BURSA W/O U/S GUIDANCE (06/26/2024 10:30 AM EST) Narrative David Cueto MD - 06/26/2024 10:30 AM EST HENRY Suazo ? 06/26/2024 10:56 AM L Inj/Asp: R knee Indications: pain Details: 22 G needle, anterolateral approach Medications: 4 mL lidocaine 1 %; 80 mg methylPREDNISolone acetate 80 mg/mL Informed Consent: ??Site: ??Knee ??Laterality: ??Right ??Relevant images/test results available and reviewed: yes ?Health status cleared: ??Yes ??Procedure/treatment, purpose, treatment alternatives, risks/potential complications and benefits explained: yes ?Risk/complications/benefits details: ??Risks include but are not limited to: The treatment may not accomplish the desired results. ??Additionally bleeding, infection, damage to tendon, nerve, cartilage, muscle; thinning or lightening of the skin in the area of injection; flushing or redness of the face, elevated blood pressure or blood sugar, allergic reaction, rash, increased pain Benefits include relief of inflammation and pain ??Patient questions answered: yes ?Patient agrees, verbalizes understanding, and wants to proceed: yes ?Consent given by: ??Patient ??Informed consent discussion completed by Physician/GAURANG with patient: ?? Verbal ??Pre-procedure timeout performed: yes ?? Tristen FIG[facility]ER[facility] IN CLINIC/BEDSIDE ORDERABLES Fin al Result * Microalbumin creatinine urine ratio (05/30/2024 10:10 AM EST) Pathologist [facility] Creatinine, Urine 199.0 mg/dL LAB CHEMISTRY METHOD 05/30/2024 1:[address] [facility] Microalb, Ur 11.1 0.0 - 29.0 mg/L LAB CHEMISTRY METHOD 05/30/2024 1:[address] [facility] Microalb/Creat Ratio 6 <30 mg/g creat LAB CHEMISTRY METHOD 05/30/2024 1:[address] [facility] Urine Urine specimen obtained by clean catch procedure / Unknown Non-blood Collection / Unknown 05/30/2024 10:10 AM EST 05/30/2024 10:10 AM EST us Denzel Reyes MD LAB URINE ORDERABLES F inal Result [facility] [address] [place] [address], [place] [phone] * (ABNORMAL) POC glucose manually resulted (05/30/2024 9:45 AM EST) Glucose POC 142 mg/dL Blood Capillary blood specimen / Unknown 05/30/2024 9:45 AM EST us Denzel Reyes MD POINT OF CARE TEST ENT ER/EDIT ORDERABLES Final Result * (ABNORMAL) CBC auto differential (05/27/2024 2:00 PM EST) WBC 6.8 4.8 - 10.8 K/mcL LAB HEMETOLOGY METHOD 05/27/2024 5:29 PM [facility] RBC 4.40 3.80 - 4.80 M/mcL LAB HEMETOLOGY METHOD 05/27/2024 5:29 PM [facility] Hemoglobin 12.5 11.5 - 16.0 g/dL LAB HEMETOLOGY METHOD 05/27/2024 5:29 PM [facility] Hematocrit 40.7 35.0 - 47.0 % LAB HEMETOLOGY METHOD 05/27/2024 5:29 PM [facility] MCV 93.6 79.0 - 98.0 FL LAB HEMETOLOGY METHOD 05/27/2024 5:29 PM [facility] MCH 28.7 27.0 - 32.0 pcg LAB HEMETOLOGY METHOD 05/27/2024 5:29 PM [facility] MCHC 30.7(L) 32.0 - 37.0 g/dL LAB HEMETOLOGY METHOD 05/27/2024 5:29 PM [facility] RDW 14.2 11.0 - 15.0 % LAB HEMETOLOGY METHOD 05/27/2024 5:29 PM [facility] Platelets 275 130 - 400 K/mcL LAB HEMETOLOGY METHOD 05/27/2024 5:29 PM [facility] MPV 10.9 7.0 - 11.0 FL LAB HEMETOLOGY METHOD 05/27/2024 5:29 PM [facility] NRBC 0.0 <1.0 % LAB HEMETOLOGY METHOD 05/27/2024 5:29 PM [facility] LAB NRBC Absolute 0.00 <0.10 K/mcL LAB HEMETOLOGY METHOD 05/27/2024 5:29 PM [facility] LAB Neutrophils Relative 56.2 % LAB HEMETOLOGY METHOD 05/27/2024 5:29 PM [facility] LAB Lymphocytes Relative 35.1 % LAB HEMETOLOGY METHOD 05/27/2024 5:29 PM [facility] LAB Monocytes Relative 8.3 % LAB HEMETOLOGY METHOD 05/27/2024 5:29 PM [facility] LAB Eosinophils Relative 0.0 % LAB HEMETOLOGY METHOD 05/27/2024 5:29 PM [facility] LAB Basophils Relative 0.1 % LAB HEMETOLOGY METHOD 05/27/2024 5:[address] [facility] LAB Immature Granulocytes Relative 0.3 % LAB HEMETOLOGY METHOD 05/27/2024 5:[address] [facility] LAB Neutrophils Absolute 3.83 1.50 - 7.00 K/[facility] LAB HEMETOLOGY METHOD 05/27/2024 5:[address] [facility] LAB Lymphocytes Absolute 2.40 1.00 - 5.00 K/mcL LAB HEMETOLOGY METHOD 05/27/2024 5:[address] [facility] LAB Monocytes Absolute 0.57 0.20 - 1.00 K/[facility] LAB HEMETOLOGY METHOD 05/27/2024 5:[address] [facility] Eosinophils Absolute 0.00 0.00 - 0.50 K/[facility] LAB HEMETOLOGY METHOD 05/27/2024 5:[address] [facility] LAB Basophils Absolute 0.01 0.00 - 0.20 K/mcL LAB HEMETOLOGY METHOD 05/27/2024 5:[address] [facility] LAB Immature Granulocytes Absolute 0.02 0.00 - 0.03 K/[facility] LAB HEMETOLOGY METHOD 05/27/2024 5:[address] [facility] Blood Venous blood specimen / Unknown Venipuncture / Unknown 05/27/2024 2:00 PM EST 05/27/2024 2:00 PM EST us Denzel Reyes MD LAB BLOOD ORDERABLES F inal Result [facility] [address] [place] [address], [place] [phone] * XR Knee 4+ Views bilat (05/27/2024 [...] Signed Date: 05/27/2024 16:29 ET Workstation ID: [id number] Transcribed By: Self Edit Transcribed Date: 05/27/2024 [...] Signed Date: 05/27/2024 16:29 ET Workstation ID: [id number] Transcribed By: Self Edit Transcribed Date: 05/27/2024 16:28 ET Denzel Reyes MD IMG XR PROCEDURES Eloise l Result * Colonoscopy (06/09/2022) Colonoscopy abstracted, no interpretation Anatomical Region Laterality Modality Other Historical Provider HEALTH MAINTENANCE Final Result * Hepatitis C Screening (07/12/2015) Pathologist [facility] Hepatitis C Screening abstracted Historical Provider HEALTH MAINTENANCE Final Result from Last 3 Months or Most Recently Relevant to Health Maintenance Insurance [employer] MEDICARE Advance Directives Documents on File Type Date Recorded Patient Flagstone Layer Expl anation Health Care Decision (hx) 09/19/2022 AD PALACIOS DIRECTIVE Health Care Decision (hx) 09/19/2022 AD PALACIOS DIRECTIVE Care Teams Mortgage Funder Relationship Specialty Start Date End Date Denzel Reyes MD [address] [place] [address] PCP - General 10/26/22
--- OUTSIDE RECORDS SUMMARY | 2024-08-07 12:17 | XMS_ITS | Clinical Summary ---
Author Organization [employer] Address [address] [facility] [address] [place] [address] Care Team Providers Care Financial Aid Officer Name Role Phone Unavailable Primary Care Provider Unavailabl e Encounters Date Type Department Care Team Description 05/28/2024 Telephone [facility] [address] [place] [address] Eduardo Latif MD from Last 3 Months [...] patient's age to complete this topic Insurance [facility] MEDICARE REPLACEMENT
--- OUTSIDE RECORDS SUMMARY | 2024-08-07 12:17 | XMS_ITS | Clinical Summary ---
Author Organization [facility] Address [address] [place] [address] Care Team Providers Care Director Mission Name Role Phone Denzel Reyes Primary Care Provid er Allergies Active Allergy Reactions Criticality Noted Date Comments Aloe Vera 10/25/2020 Other reaction(s): Other (see comments) Latex Medium 01/05/2009 Other reaction(s): Rash/Dermatitis She notes skin rash on hands when using latex gloves, although she continues to use them Lisinopril 12/08/2010 Other reaction(s): Other (see comments) cough Dameron 05/21/2006 Medications Medication Sig Dispensed Refills Start [...] age to complete this topic Care Teams Director Mission Relationship Specialty Start Date End Date Denzel Reyes MBBS [address] [place] [address] PCP - General Internal Medicine 10/26/22
--- OUTSIDE RECORDS SUMMARY | 2024-08-07 12:17 | XMS_ITS | Encounter Summary ---
Author Organization [facility] Address [address] [place] [address] Care Team Providers Care Veterinary Technician Name Role Phone Denzel Reyes MD Primary Care Provider Reason for Visit * Imaging (Routine) - Authorized Specialty Diagnoses / Procedures Referred By Lucindaac john Referred To Contact Radiology Diagnoses Encounter for screening mammogram for breast cancer Procedures MG Mammo Digital Screening w Jose Rafael bilat MG Mammo Digital Screening w Jose Rafael bilDenzel Bruce MD [address] [place] [address] Phone: tel: fax: [facility] Referral ID Status Reason Start Date Expiration Date V isits Requested Visits Authorized [id number] Authorized 02/14/2024 02/13/2025 1 1 Encounter Details Date Type Department Care Team (Latest Contact Info) Description 08/04/2024 11:19 AM EDT - 08/04/2024 11:59 PM EDT Hospital Encounter Radiology Department - [address] [address] Encounter for screening mammogram for breast cancer Discharge Disposition: Home or Self Care Social History Tobacco Use Types Packs/Day Years Used Date Smoking Tobacco: Never Smokeless Tobacco: Never Alcohol Use Standard Drinks/Week Comments Yes 0 [...] care for your loved ones. For example, salesperson children's shoes or elderly care for an older adult? [...] on file documented as of this encounter Medications at Time of Discharge acetaminophen (TYLENOL) 500 mg tablet Take 1 tablet (500 mg total) by mouth every 6 (six) hours if needed. amantadine (SYMMETREL) 100 mg capsule Take 1 capsule (100 mg total) by mouth 1 (one) time each day. 03/06/2023 atorvastatin (LIPITOR) 20 mg tablet Take 1 tablet (20 mg total) by mouth 1 (one) time each day. 30 each 5 07/09/2024 blood-glucose meter miscIndications: Type 2 diabetes mellitus with hyperglycemia, without long-term current use of insulin ([facility] V24, [facility] V28),Type 2 diabetes mellitus with obesity ([facility] V24, [facility] V28) Use daily or as directed for monitoring of diabetes. 1 each 05/30/2024 diclofenac (Voltaren Arthritis Pain) 1 % topical gel Apply 4 g topically 2 (two) times a day. 240 g 1 07/17/2024 gabapentin (NEURONTIN) 400 mg capsule Take 1 capsule (400 mg total) by mouth 2 (two) times a day. 07/24/2023 glucose blood test stripIndications :Type 2 diabetes mellitus with hyperglycemia, without long-term current use of insulin ([facility] V24, [facility] V28),Type 2 diabetes mellitus with obesity ([facility] V24, [facility] V28) Check blood glucose daily. Freestyle strips 100 strip 1 05/30/2024 hydrOXYzine HCL (ATARAX) 25 mg tablet TAKE 1 TABLET THREE TIMES A DAY NEEDED FOR ANXIETY 90 tablet 04/18/2024 lancets lancetsIndicatio ns:Type 2 diabetes mellitus with hyperglycemia, without long-term current use of insulin ([facility] V24, [facility] V28),Type 2 diabetes mellitus with obesity ([facility] V24, [facility] V28) Use to check blood glucose daily 100 each 1 05/30/2024 losartan (COZAAR) 50 mg tablet Take 1 tablet (50 mg total) by mouth 2 (two) times a day. 180 each 1 05/30/2024 metFORMIN XR (GLUCOPHAGE-XR) 500 mg 24 hr tablet Take 1 tablet (500 mg total) by mouth 2 (two) times a day with meals. Do not crush, chew, or split. 180 each 05/30/2024 OLANZapine (ZyPREXA) 7.5 mg tablet Take 1 tablet (7.5 mg total) by mouth at bedtime. 10/20/2022 spironolactone (ALDACTONE) 50 mg tablet 01/23/2023 traZODone (DESYREL) 50 mg tablet Take 1 tablet (50 mg total) by mouth at bedtime. 04/12/2023 venlafaxine XR (EFFEXOR-XR) 150 mg 24 hr capsule Take 1 capsule (150 mg total) by mouth 1 (one) time each day. 10/20/2022 documented as of this encounter Discharge Disposition Disposition Code Departure Means Destination Home or Self Care documented in this encounter Plan of Treatment Upcoming Encounters Date Type Department Care Team (Late st Contact Info) Description 09/10/2024 11:00 AM EDT Office Visit Adult Medicine [address] [phone] Denzel Reyes MD [address] [place], [place] 10/10/2024 9:30 AM EDT Office Visit Orthopedics [address] [phone] Tristen Tavarez PA [address] [place], [place] 10/20/2024 10:30 AM EDT Office Visit Orthopedic Surgery [facility] [address] [phone] Severo Morrell DPM [address] [address] documented as of this encounter Procedures Procedure Name Priority Date/Time Associated Diagnosis Comments MG MAMMO DIGITAL SCREENING W JOSE RAFAEL BILAT Routine 08/04/2024 11:29 AM EDT Encounter for screening mammogram for breast cancer documented in this encounter Results * MG Mammo Digital Screening w Jose Rafael bilat (08/04/2024 11:29 AM EDT) Anatomical Region Laterality Modality Breast Bilateral Mammography 08/05/2024 1:52 PM EDT Impressions 08/05/2024 1:52 PM EDT No mammographic evidence of malignancy. BREAST DENSITY: B - There are scattered areas of fibroglandular density. BI-RADS CATEGORY: 1 - NEGATIVE RECOMMENDATION: Screening bilateral mammogram is recommended in 1 year. MAMMO LOCATION: [facility], [address] [place] [address], [address], . -------- FINAL REPORT -------- Dictated By: Virginia Britton Dictated Date: 08/05/2024 13:52 ET Assigned Physician: Virginia Britton Reviewed and Electronically Signed By: Virginia Britton Signed Date: 08/05/2024 13:52 ET Workstation ID: [id number] Transcribed By: Self Edit Transcribed Date: 08/05/2024 [...] is recommended in 1 year. MAMMO LOCATION: [facility], [address] [place] [address], [address], . -------- FINAL REPORT -------- Dictated By: Virginia Britton Dictated Date: 08/05/2024 13:52 ET Assigned Physician: Virginia Britton Reviewed and Electronically Signed By: Virginia Britton Signed Date: 08/05/2024 13:52 ET Workstation ID: [id number] Transcribed By: Self Edit Transcribed Date: 08/05/2024 13:52 ET Denzel Reyes MD IMG BI PROCEDURES Eloise l Result documented in this encounter Visit Diagnoses Diagnosis Encounter for screening mammogram for breast cancer documented in this encounter Care Teams Veterinary Technician Relationship Specialty Start Date End Date Denzel Reyes MD [address] [place] [address] PCP - General 10/26/22 documented as of this encounter
== END 2024-08-07 10:54 | disposition home or self-care (01) ==
LOC: HO.ENCR 10:24
PROVIDERS: Visit Provider Dietitian, Registered
DX: E11.9 Type 2 diabetes mellitus without complications (principal)

== ENCOUNTER → 2024-08-07 10:23 | Outpatient (BNVA) | payer MEDICARE, SELFPAY | PROVIDERS: Visit Provider Dietitian, Registered | DX: E11.9 Type 2 diabetes mellitus without complications (principal); Z71.3 Dietary counseling and surveillance | CPT/HCPCS: 97803 ==

== ENCOUNTER 2024-11-06 11:23 | Outpatient (AMB) | payer MEDICARE, SELFPAY ==
[2024-11-06 11:29] VITALS: BMI 33.4
--- NOTE | 2024-11-06 11:29 | A.OFFVIS_ITS ---
VS Expanded 11/06/24 11:29 Height 5 ft 2 in Weight 182 lb 12.211 oz BMI 33.4 Intake Visit Reasons: T2DM Allergies lisinopril Adverse Reaction (Mild, Verified 11/07/22 14:33) Cough amoxicillin Adverse Reaction (Verified 11/07/22 14:33) Diarrhea Medication List - Last Reconciled 11/06/[address], LDN acetaminophen 650 mg (2 x 325 mg) PO Q6H PRN 30 days amantadine HCl 100 mg PO DAILY 30 days gabapentin 400 mg PO BID 30 days hydroxyzine HCl 25 mg PO Q6H PRN 30 days metformin 500 mg PO BID olanzapine 7.5 mg PO BEDTIME 30 days spironolactone 25 mg PO DAILY trazodone 50 mg PO BEDTIME 30 days venlafaxine ER 150 mg PO DAILY 30 days Nutrition Presentation Details: Pt presents for MNT f/u for T2DM Pt reports participating in physical activity 4-5 times a week 30-45 minutes (swimming, walking) Monitors BG in the fasting state and reports bg ranging from 79-120s Pr reports she is on metformin 500 mg twice day for DM Typcal meal intake -12 apple banana bowl of shredded wheat cereal with low fat milk 1-2% 3pm fruit or sand 5-6pm pasta/chicken and sauce and salad and yogurt for dessert beverages: water or with crystal light food frequency fish: does not like, not willing to try yet fruits: 0-1/d veg: daily milk/yogurt: 3/d pasties/chips: working on reducing walking 30-40 min 3 times/wk BS Monitoring Most Recent Diabetes Results: Cholesterol 203 mg/dL 10/04/22 HDL Cholesterol 41 mg/dL 10/04/22 Triglycerides 259 mg/dL 10/04/22 Creatinine, (0.5-1.4) 1.15 mg/dL 10/04/22 BUN, (9-16) 7 mg/dL L 10/04/22 Sodium, (135-145) 144 mmol/L 10/04/22 Potassium, (3.3-5.1) 4.5 mmol/L 10/04/22 Chloride, (96-108) 109 mmol/L H 10/04/22 Carbon Dioxide, (22-29) 25 mmol/L 10/04/22 Calcium, (8.4-10.2) 9.3 mg/dL 10/04/22 AST, (5-31) 40 U/L H 10/04/22 ALT, (0-31) 36 U/L H 10/04/22 Total Protein, (6.5-8.0) 6.5 g/dL 10/04/22 Albumin, (3.5-5.0) 3.9 g/dL 10/04/22 YTD-[id number]-Zw.Jeor Equation Height: 5 ft 2 in Weight: 183 lb Resting Metabolic Rate: 1347.45 Calculated Activity Level: Sedentary Calories Needed to Maintain Weight: 1616.94 PFSH Medical History Achilles tendonitis, bilateral Back pain of lumbar region with sciatica Bilateral plantar fasciitis CKD (chronic kidney disease), stage III Depression with anxiety HTN (hypertension) Psychiatric pseudoseizure Social History Household Members: Spouse Housing: House Do you presently have visiting nurse or other home services: No Patient Tobacco Use Status: Never used Tobacco Second Hand Smoke Exposure: No Sexual orientation: Straight/Heterosexual Assessment & Plan Assessment & Plan (1) T2DM (type 2 diabetes mellitus): Code(s): E11.9 - Type 2 diabetes mellitus without complications Category: Medical Plan: Wt: 85 Kg ( 07/22 ), 84 kg (08/22), 83 kg (11/21) Est kcal needs as per MSJ: 1600 1800 (40% carb, 30% protein/fat) Est fluid needs as per 25-30 ml/d: 2500 Est prot per day as per 1 g/kg bw: 80 Recommend fiber intake : 8-10 g per day and gradually increase to 25-28 g per day for women and 35-38 g for men or as tolerated Recommend sodium intake per day : less than 2000 mg Educated patient on: ( R = reviewed V = verbalizes understanding N/R = needs review N/A = not applicable * Food sources of carbohydrate, adequate serving sizes and its role in various health conditions: R * Differences between complex carbohydrates a simple carbohydrates, role of fiber in diet: R * Lean protein sources of foods: R * Differences between types of fats and role in diet (mono on saturated fat fatty acids, saturated fatty acids, trans fats): R general low fat * Food sources of sodium in salt and healthy modifications for heart health in kidney health: R * Vitamins and minerals: R * Healthy plate method concept: R V * Physical activity: Benefits a precaution: R * Hypoglycemia protocol (rule of 15): R V N/R * Dietary prevention of Hyperglycemia: R Patient Instructions: Choose fiber rich breads (whole wheat sandwich thin to make your sandwiches Continue reducing on sugars (pastires/cookies, ) choose a fruit instead Continue physical activity 30-40 minute walk 4-5 times a week Coding Level of Care Code Nutr Indiv Subseq (84744) Diagnoses T2DM (type 2 diabetes mellitus) E11.9 Time Spent (min) 30
--- OUTSIDE RECORDS SUMMARY | 2024-11-06 12:03 | XMS_ITS | Encounter Summary ---
Author Organization [facility] Address [address] [place] [address] Phone Care Team Providers Care Worm Sorter Name Role Phone Denzel Reyes Primary Care Provider [phone] Encounter Details Date Type Department Care Team (Late Contact Info) Description 10/25/2020 Orders Only [facility] [address] [place] [address] Provider, MD Biju Social History Tobacco Use Types Packs/Day Years [...] Care Team (Late st Contact Info) Description 11/28/2024 Orders Only [facility] P.CPerico [address] [facility] [address] [place] [address] Arline Jane ARNP [address] [facility] [address] [place] [address] Stage 3b chronic kidney disease (HCC); Hypertension 01/01/2025 10:15 AM EDT Office Visit [facility] [address] [address] Buck ArlineCARL [address] [address] documented as of this encounter Procedures Procedure Name Priority Date/Time Associated Diagnosis Comments EXT RESULT ENTRY Routine 05/25/2020 documented in this encounter Results * EXT RESULT ENTRY (05/25/2020) us Historical Provider LAB BLOOD ORDERABLES Eloise l Result documented in this encounter Visit Diagnoses Not on filedocumented in this encounter Care Teams Worm Sorter Relationship Specialty Start Date End Date Denzel Reyes [address] [place] [address] PCP - General 07/01/24 documented as of this encounter
--- OUTSIDE RECORDS SUMMARY | 2024-11-06 12:03 | XMS_ITS | Clinical Summary ---
Author Organization [employer] Address [address] [facility] 7[address] [place] [address] Care Team Providers Care Fisher Eel Spear Name Role Phone Unavailable Primary Care Provider Unavailabl e Social History Tobacco Use Types Packs/Day Years [...] Panel 1962 SDOH Screening 1962 Sigmoidoscopy 1962 Disability Screening 1962 Alcohol/Substance Use Screening 1974 Tobacco Screening 1974 Hepatitis C Screening 02/20/1980 Pap Smear 1983 Cervical Cancer Screening 02/20/1992 HPV/Cotest 02/20/1992 Mammogram 2002 Pneumococcal Vaccine: 50+ Years (1 of 1 - PCV) 02/20/2012 Zoster Vaccines (2 of 2) 04/12/2022 02/15/2022 COVID-19 Vaccine (3 - season) 2023 02/14/2023, 03/16/2022 DTaP/Tdap/Td Vaccines (2 - Td or Tdap) 03/23/2024 03/23/2014, 06/21/2004 Influenza Vaccine (#1) 2024 , 01/28/2022, 02/21/2021, Additional history exists RSV Patients and Patients Aged 60 years [...] patient's age to complete this topic Insurance [facility] MEDICARE REPLACEMENT
--- OUTSIDE RECORDS SUMMARY | 2024-11-06 12:04 | XMS_ITS | Clinical Summary ---
Author Organization [facility] [address] [place] [address] [place] [phone] Phone Care Team Providers Care Museum Specialist Name Role Phone Denzel Reyes MD Primary [...] cough Other reaction(s): Other (see comments) cough [place] 05/21/2006 Medications gabapentin (NEURONTIN) 400 mg capsule Take 1 capsule (400 mg total) by mouth 2 (two) times a day. 4 Active traZODone (DESYREL) 50 mg tablet Take 1 tablet (50 mg total) by mouth at bedtime. 3 Active amantadine (SYMMETREL) 100 mg capsule Take 1 capsule (100 mg total) by mouth 1 (one) time each day. 3 Active acetaminophen (TYLENOL) 500 mg tablet [...] ANXIETY 90 tablet 4 Active blood-glucose meter miscIndication s:Type 2 diabetes mellitus with hyperglycemia, without long-term current use of insulin ([facility] V24, [facility] V28),Type 2 diabetes mellitus with obesity ([facility] V24, [facility] V28) Use daily or as directed for monitoring of diabetes. 1 each 5 Active glucose blood test stripIndicatio ns:Type 2 diabetes mellitus with hyperglycemia, without long-term current use of insulin ([facility] V24, [facility] V28),Type 2 diabetes mellitus with obesity ([facility] V24, [facility] V28) Check blood glucose daily. Freestyle strips 100 strip 1 5 Active lancets lancetsIndicat ions:Type 2 diabetes mellitus with hyperglycemia, without long-term current use of insulin ([facility] V24, [facility] V28),Type 2 diabetes mellitus with obesity ([facility] V24, [facility] V28) Use to check blood glucose daily 100 each 1 5 Active losartan (COZAAR) 50 mg tablet Take 1 tablet (50 mg total) by mouth 2 (two) times a day. 180 each 1 5 Active atorvastatin (LIPITOR) 20 mg tablet Take 1 tablet (20 mg total) by mouth 1 (one) time each day. 30 each 5 5 01/06/20 25 Active spironolactone (ALDACTONE) 50 mg tablet Take 1 tablet (50 mg total) by mouth 1 (one) time each day. 90 each 1 5 Active dexAMETHasone (DECADRON) 4 mg/mL injection 1 mL (4 mg total) by Other route every 12 (twelve) hours. 30 mL 2 5 Active metFORMIN XR (GLUCOPHAGE-XR ) 500 mg 24 hr tablet Take 1 tablet (500 mg total) by mouth 2 (two) times a day with meals. Do not crush, chew, or split. 180 each 3 5 Active metFORMIN XR (GLUCOPHAGE-XR ) 500 mg 24 hr tablet Take 1 tablet (500 mg total) by mouth 2 (two) times a day with meals. Do not crush, chew, or split. 180 each 3 5 11/04/19 25 Discontinu ed(Reorder ) Hospital, Clinic, or Other Facility Administered Medication Ordered Dose Route Frequency Start Date End Date Status lidocaine (XYLOCAINE) 1 % injection 4 mLIndications:Primary osteoarthritis of both knees 4 mL inj Once PRN Procedure 10/10/2024 10/10/2024 Ended methylPREDNISolone acetate (DEPO-Medrol) injection 80 mgIndications:Primary osteoarthritis of both knees 80 mg IAtc Once PRN Procedure 10/10/2024 10/10/2024 Ended Active Problems Problem Noted Date Diagnosed Date Type 2 diabetes mellitus wit h obesity ([facility]24, [facility] V28) 05/30/2024 Proteinuria 01/02/2024 Mixed hyperlipidemia 03/16/2023 Major depressive disorder wi th psychotic features ([facility] V24, [facility] V28) 10/20/2022 Localized edema 10/18/2022 Syncope 10/13/2022 Hypertensive renal disease 10/25/2020 Hypokalemia 10/25/2020 Chronic right-sided low back pain without sciati ca 06/23/2020 PTSD (post-traumatic stress disorder) 06/23/2020 Suicide attempt ([facility] V24, [facility] V28) 06/23 Overview (04/07/2024): 04/2020, medication overdose. Now s/p partial hospitalization program [facility] Onychomycosis 10/05/2019 CKD (chronic kidney disease) stage 3, GFR 30-59 ml/min ([facility] V24, [facility] V28) 11/06/2018 Anxiety 06/02/2013 Dissociative identity disorder ([facility] V[facility], [facility] V28) 06/02/2013 Obesity 01/21/2012 Bulimia nervosa 10/19/2009 Tremor, unspecified 10/11/2006 Overview (04/07/2024): on amantadine Depressive disorder 05/21/2006 Hypertension 04/26/2005 Obstructive sleep apnea 04/26/2005 Overview (04/07/2024): On CPAP since ~ 200606/01/2004: AHI 22. [facility] Polysomnogram treatment study. Date 04/21/2019. Wt 157#; BMI 30; SE 66 % SM 67 %; spent 14 % of the study in REM. On CPAP @ 12; RDI 0.6 (AHI 0.6), Central apneas 1; Obstructive apneas 0; Mixed apneas 0; hypopneas 0; RERAs 0; and, average oxygen saturation was 97%. For the entire study, PLMs ~0. Prestudy ESS 5; 0/4 RLS symptoms. Resolved Problems Problem Noted Date Diagnosed Date Resolved Date Newly diagnosed diabetes ([facility] V24, [facility] V28) 05/30/2024 09/10/2024 Type 2 diabetes mellitus wit h hyperglycemia, without long-term current use of insulin ([facility] V24, [facility] V28) 05/30/2024 09/10/2024 Prediabetes 02/10/2022 09/10/2024 Encounters Date Type Department Care Team Description 10/20/2024 10:30 AM EDT Office Visit Orthopedic Surgery - [address] [phone] Severo Morrell, DPM Tendonitis, Achilles, left (Primary Dx) 10/10/2024 9:30 AM EDT Office Visit Orthopedics [address] [phone] Tristen Tavarez PA Primary osteoarthritis of both knees (Primary Dx) 09/10/2024 11:00 AM EDT Office Visit Adult Medicine East [address] [phone] Denzel Reyes MD Type 2 diabetes mellitus with obesity ([facility] V24, [facility] V28) (Primary Dx); Stage 3b chronic kidney disease ([facility] V24, [facility] V28); Type 2 diabetes mellitus with stage 3b chronic kidney disease, with long-term current use of insulin ([facility] V24, [facility] V28); Hypertension, unspecified type; Hypertensive renal disease; Mixed hyperlipidemia; Encounter for vitamin deficiency screening from Last 3 Months Immunizations Name Administration Dates Next Due COVID-19 (Pfizer/Comirnaty) 12yo and older 02/01/2023 Influenza Quadravalent, MDCK , 0.5ml, preservative free (Flucelvax) 6mo and older 02/21/2021,02/06/2020,2019 Influenza Quadravalent, MDCK , 0.5ml, with preservative (Flucelvax) 6mo and older 02/15/2018,01/10/2017 Influenza Quadrivalent, 0.5m l, preservative free (Fluarix; FluLaval; Fluzone) ages 6mo and older (Afluria) 3yo and older 02/01/2023,01/05/2022 Influenza trivalent, 0.5mL, preservative free (Fluarix; FluLaval; Fluzone) ages 6mo and older (Afluria) 3 years and older 01/28/2022,02/21/2016,03/05/2015,2013,02/27/2013 Influenza trivalent, recombi nant, 0.5mL, preservative free (Flublok) 18yo and older 01/19/2024 Influenza trivalent, with preservative (Fluzone; Afluria) 6mo and older 02/16/2018 Influenza, Unspecified 02/14/2023,01/29/2012 MMR, measles mumps and [...] Zoster recombinant (Shingrix ) 19yo and older 02/15/2022,03/09/2021,01/06/2021 Surgical History Surgery Date Site/Laterality Comments COLONOSCOPY [...] Hypertension DX:Hypertension Kidney disease DX:Kidney diseas e Hypertensive renal disease 10/25/2020 Newly diagnosed diabetes ( [facility] V24, [facility] V28) 05/30/2024 Type 2 diabetes mellitus wit h hyperglycemia, without long-term current use of insulin ([facility] V24, [facility] V28) 05/30/2024 Family History Medical History Relation Name Comments [...] for your loved ones. For example, child advocate or elderly care for an older adult? [...] Sign Reading Time Taken Comments Blood Pressure 98/70 09/10/2024 10:51 AM EDT Pulse 76 09/10/2024 10:51 AM EDT Temperature 36.1 C (96.9 F) 09/10/2024 10:51 AM EDT Respiratory Rate 15 09/10/2024 10:51 AM EDT Oxygen Saturation - - Inhaled Oxygen Concentration - - Weight 84.8 kg (187 lb) 10/10/2024 9:31 AM EDT Height 157.5 cm (5' 2.01 ) 10/10/2024 9:31 AM ED T Body Mass Index 34.19 10/10/2024 9:31 AM EDT Plan of Treatment Upcoming Encounters Date Type Department Care Team (Late st Contact Info) Description 11/07/2024 10:30 AM EDT Office Visit Orthopedics [address] [phone] Tristen Tavarez PA [address] [place] [phone] 11/19/2024 11:45 AM EDT Evaluation [facility] [address] [phone] Raoul Hsieh, PT [address] [place] [address] 12/01/2024 3:30 PM EDT Office Visit Adult Medicine [address] [phone] Denzel Reyes MD [address] [place] [phone] 12/04/2024 9:00 AM EDT Office Visit Orthopedic Surgery - [address] [facility] [address] [place] [phone] Severo Morrell DPM [address] [facility] [address] [place] [address] 08/11/2025 11:20 AM EDT Appointment Radiology Department - [address] [phone] Health Maintenance Due Date Last Done Comments Diabetes: Annual Retina Eye Exam 02/20/1970 RSV Immunization Adult Patients (1 - Risk 60-74 years 1-dose series) 2022 COVID-19 Vaccine (8 - Pfizer risk season) 2024 06/02/2024, 02/14/2023, 02/01/2023, Additional history exists Influenza Vaccine (#1) 2024 , 02/14/2023, 02/01/2023, Additional history exists Diabetes: Blood Sugar Control Test (HGBA1C) 02/03/2025 08/04/2024, 05/27/2024, 11/06/2022 Depression Screening 05/27/2025 05/27/2024 Social Influencers of Health Screening 05/27/2025 05/27/2024 Diabetes: Annual Urine Albumin-Creatinine Ratio (uACR) 05/30/2025 05/30/2024, 01/21/2012 Diabetes: Annual Foot Exam 05/30/2025 05/30/2024 Diabetes: Annual GFR (Glomerular Filtration Rate) 08/04/2025 08/04/2024, 05/27/2024, 03/20/2023 Hypertension/CHF/CAD Annual BMP Blood Test 08/04/2025 08/04/2024, 05/27/2024, 03/20/2023 Breast Cancer Screening 08/04/2026 08/05/19, 07/25/2023, 07/18/2022, Additional history exists Medicare Annual Wellness Visit 02/20/2028 Postponed from 04/08/2022 (Not clinically appropriate to address at this time) Cholesterol Screening (Lipid Panel) 08/04/2029 08/04/2024, 05/27/2024, 03/20/2023 Colorectal Cancer Screening: Colonoscopy 06/09/2032 06/09/2022 DTaP,Tdap,and Td Vaccines (4 - Td or Tdap) 07/09/2034 07/09/2024, 03/23/2014, 06/21/2004 MMR Vaccines Aged Out 05/28/2006 No longer eligi ble based on patient's age to complete this topic Hepatitis C Screening Completed 07/12/2015 Zoster Vaccines Completed 02/15/2022, 02/28, 01/06/2021 Pneumococcal Vaccine: 50+ Years Completed 07/09/2024 HIB Vaccines Aged Out No [...] Procedure Name Priority Date/Time Associated Diagnosis Comments CO ARTHROCENTESIS/ASPIRA TION/INJECTION MAJOR JOINT/BURSA W/O U/S GUIDANCE Routine 10/10/2024 9:30 AM EDT Primary osteoarthritis of both knees MG MAMMO DIGITAL SCREENING W TAY BILAT Routine 08/04/2024 11:29 AM EDT Encounter for screening mammogram for breast cancer COMPREHENSIVE METABOLIC PANEL Routine 08/04/2024 11:12 AM EDT Primary hypertension HEMOGLOBIN A1C Routine 08/04/2024 11:12 AM EDT Type 2 diabetes mellitus with hyperglycemia, without long-term current use of insulin ([facility] V24, [facility] V28) LIPID PANEL WITH REFLEX TO DIRECT LDL Routine 08/04/2024 11:12 AM EDT Type 2 diabetes mellitus with hyperglycemia, without long-term current use of insulin ([facility] V24, [facility] V28) MICROALBUMIN CREATININE URINE RATIO Routine 05/30/2024 10:10 AM EST Type 2 diabetes mellitus with hyperglycemia, without long-term current use of insulin ([facility] V24, [facility] V28) Type 2 diabetes mellitus with obesity ([facility] V24, [facility] V28) Stage 3b chronic kidney disease ([facility] V24, [facility] V28) COLONOSCOPY Routine 06/09/2022 HEPATITIS C SCREENING Routine 07/12/2015 from Last 3 Months or Most Recently Relevant to Health Maintenance Results * CO ARTHROCENTESIS/ASPIRATION/INJECTION MAJOR JOINT/BURSA W/O U/S GUIDANCE (10/10/2024 9:30 AM EDT) Tristen Patterson PA - 10/10/2024 9:30 AM EDT HENRY Suazo 10/10/2024 9:48 AM L Inj/Asp: R knee Indications: pain Details: 22 G needle, anterolateral approach Medications: 4 mL lidocaine 1 %; 80 mg methylPREDNISolone acetate 80 mg/mL Outcome: tolerated well, no immediate complications Informed Consent: Site: Knee Laterality: Right Relevant images/test results available and reviewed: yes Health status cleared: Yes Procedure/treatment, purpose, treatment alternatives, risks/potential complications and benefits explained: yes Risk/complications/benefits details: Risks include but are not limited to: The treatment may not accomplish the desired results. Additionally bleeding, infection, damage to tendon, nerve, cartilage, muscle; thinning or lightening of the skin in the area of injection; flushing or redness of the face, elevated blood pressure or blood sugar, allergic reaction, rash, increased pain Benefits include relief of inflammation and pain Patient questions answered: yes Patient agrees, verbalizes understanding, and wants to proceed: yes Consent given by: Patient Informed consent discussion completed by Physician/GAURANG with patient: Verbal Pre-procedure timeout performed: yes us Tristen FIGUEROA IN CLINIC/BEDSIDE ORDERABLES Fin al Result * MG Mammo Digital Screening w Tay bilat (08/04/2024 11:29 AM EDT) Anatomical Region Laterality Modality Breast Bilateral Mammography 08/05/2024 1:52 PM EDT Impressions 08/05/2024 1:52 PM EDT No mammographic evidence of malignancy. BREAST DENSITY: B - There are scattered areas of fibroglandular density. BI-RADS CATEGORY: 1 - NEGATIVE RECOMMENDATION: Screening bilateral mammogram is recommended in 1 year. MAMMO LOCATION: [facility], [address] [place] [address], [phone], . -------- FINAL REPORT -------- Dictated By: Virginia Britton Dictated Date: 08/05/2024 13:52 ET Assigned Physician: Virginia Britton Reviewed and Electronically Signed By: Virginia Britton Signed Date: 08/05/2024 13:52 ET Workstation ID: [id number] Transcribed By: Self Edit Transcribed Date: 08/05/2024 [...] is recommended in 1 year. MAMMO LOCATION: [facility], [address] [place] [address], [phone], . -------- FINAL REPORT -------- Dictated By: Virginia Britton Dictated Date: 08/05/2024 13:52 ET Assigned Physician: Virginia Britton Reviewed and Electronically Signed By: Virginia Britton Signed Date: 08/05/2024 13:52 ET Workstation ID: [id number] Transcribed By: Self Edit Transcribed Date: 08/05/2024 13:52 ET us Denzel Reyes MD IMG BI PROCEDURES Eloise l Result * (ABNORMAL) Lipid panel with reflex to direct LDL (08/04/2024 11:12 AM EDT) Cholesterol 143 0 - 200 mg/dL LAB CHEMISTRY METHOD 08/04/2024 3:15 PM EDT [facility] Triglycerides 202(H) 0 - 150 mg/dL LAB CHEMISTRY METHOD 08/04/2024 3:15 PM [facility] HDL 48 >=40 mg/dL LAB CHEMISTRY METHOD 08/04/2024 3:15 PM [facility] LDL Calculated 55 0 - 100 mg/dL LAB CHEMISTRY METHOD 08/04/2024 3:15 PM [facility] VLDL Cholesterol Ron 40.4 mg/dL LAB CHEMISTRY METHOD 08/04/2024 3:15 PM [facility] Non HDL Chol. (LDL+VLDL) 95 <145 mg/dL LAB CHEMISTRY METHOD 08/04/2024 3:15 PM [facility] Chol/HDL Ratio 3.0 0.0 - 4.4 LAB CHEMISTRY METHOD 08/04/2024 3:15 PM [facility] Blood Venous blood specimen / Unknown Venipuncture / Unknown 08/04/2024 11:12 AM EDT 08/04/2024 1:03 PM EDT us Regina FIGUEROA LAB BLOOD ORDERABLES Final Resul t Performing Organization Address [facility]/ZIP Co de Phone Number [facility] [address] [place] [address], [place] [phone] * (ABNORMAL) Hemoglobin A1c (08/04/2024 11:12 AM EDT) Hemoglobin A1C 7.1(H) <6.5 % LAB CHEMISTRY METHOD 08/05/2024 10:14 AM EDT [facility] Mean Bld Glu Estim. 157 mg/dL LAB CHEMISTRY METHOD 08/05/2024 10:14 AM EDT [facility] Blood Venous blood specimen / Unknown Venipuncture / Unknown 08/04/2024 11:12 AM EDT 08/04/2024 11:26 AM EDT us Regina FIGUEROA LAB BLOOD ORDERABLES Final Resul t Performing Organization Address [facility]/ZIP Co de Phone Number [facility] [address] [place] [address], [place] [phone] * (ABNORMAL) Comprehensive metabolic panel (08/04/2024 11:12 AM EDT) Sodium 135 133 - 145 mmol/L LAB CHEMISTRY METHOD 08/04/2024 3:15 PM EDT [facility] Potassium 4.7 3.5 - 5.5 mmol/L LAB CHEMISTRY METHOD 08/04/2024 3:15 PM EDT [facility] Chloride 103 96 - 110 mmol/L LAB CHEMISTRY METHOD 08/04/2024 3:15 PM EDT [facility] CO2 25 21 - 32 mmol/L LAB CHEMISTRY METHOD 08/04/2024 3:15 PM EDT [facility] Anion Gap 7 3 - 11 LAB CHEMISTRY METHOD 08/04/2024 3:15 PM [facility] Glucose 159(H) 70 - 100 mg/dL LAB CHEMISTRY METHOD 08/04/2024 3:15 PM [facility] BUN 18 5 - 25 mg/dL LAB CHEMISTRY METHOD 08/04/2024 3:15 PM [facility] Creatinine 1.67(H) 0.50 - 1.10 mg/dL LAB CHEMISTRY METHOD 08/04/2024 3:15 PM [facility] eGFR 34(L) >=60 mL/min/1. 73m2 LAB CHEMISTRY METHOD 08/04/2024 3:15 PM [facility] Comment:Calculation based on the Chronic Kidney Disease Epidemiology Collaboration (CKD-EPI) equation refit without adjustment for race. BUN/Creatinine Ratio 10.8 LAB CHEMISTRY METHOD 08/04/2024 3:15 PM [facility] Calcium 9.7 8.5 - 10.5 mg/dL LAB CHEMISTRY METHOD 08/04/2024 3:15 PM [facility] AST (SGOT) 19 10 - 42 unit/L LAB CHEMISTRY METHOD 08/04/2024 3:15 PM [facility] ALT (SGPT) 31 10 - 60 unit/L LAB CHEMISTRY METHOD 08/04/2024 3:15 PM [facility] Alkaline Phosphatase 105 42 - 121 unit/L LAB CHEMISTRY METHOD 08/04/2024 3:15 PM [facility] Total Protein 7.4 6.0 - 8.0 g/dL LAB CHEMISTRY METHOD 08/04/2024 3:15 PM [facility] Albumin 4.2 3.2 - 5.0 g/dL LAB CHEMISTRY METHOD 08/04/2024 3:15 PM [facility] Total Bilirubin 0.3 0.0 - 1.4 mg/dL LAB CHEMISTRY METHOD 08/04/2024 3:15 PM [facility] Blood Venous blood specimen / Unknown Venipuncture / Unknown 08/04/2024 11:12 AM EDT 08/04/2024 1:03 PM EDT Regina FIGUEROA LAB BLOOD ORDERABLES Final Resul t Performing Organization Address [facility]/ZIP Co de Phone Number [facility] [address] [place] [address], [place] [phone] * Microalbumin creatinine urine ratio (05/30/2024 10:10 AM EST) Creatinine, Urine 199.0 mg/dL LAB CHEMISTRY METHOD 05/30/2024 1:45 PM EST [facility] Microalb, Ur 11.1 0.0 - 29.0 mg/L LAB CHEMISTRY METHOD 05/30/2024 1:45 PM EST [facility] Microalb/Creat Ratio 6 <30 mg/g creat LAB CHEMISTRY METHOD 05/30/2024 1:45 PM EST [facility] Urine Urine specimen obtained by clean catch procedure / Unknown Non-blood Collection / Unknown 05/30/2024 10:10 AM EST 05/30/2024 10:10 AM EST Denzel Reyes MD LAB URINE ORDERABLES F inal Result Performing Organization Address City/[facility]/ZIP Co de Phone Number [facility] [address] [place] [address], [place] [phone] * Colonoscopy (06/09/2022) Colonoscopy abstracted, no interpretation Anatomical Region Laterality Modality Other Historical Provider HEALTH MAINTENANCE Final Result * Hepatitis C Screening (07/12/2015) Hepatitis C Screening abstracted Historical Vu [facility] Final Result from Last 3 Months or Most Recently Relevant to Health Maintenance Insurance [employer] MEDICARE Advance Directives Documents on File Type Date Recorded Patient Electronic Sales And Service Technician Expl anation Health Care Decision (hx) 09/19/2022 AD PALACIOS DIRECTIVE Health Care Decision (hx) 09/19/2022 AD PALACIOS DIRECTIVE Care Teams Museum Specialist Relationship Specialty Start Date End Date Denzel Reyes MD [address] [place] [address] PCP - General 10/26/22
--- OUTSIDE RECORDS SUMMARY | 2024-11-06 12:04 | XMS_ITS | Clinical Summary ---
Author Organization [facility] Address [address] [place] [address] Care Team Providers Care Manager State Name Role Phone Denzel Reyes Primary Care Provid er Allergies Active Allergy Reactions Criticality Noted Date Comments Aloe Vera 10/25/2020 Other reaction(s): Other (see comments) Latex Medium 01/05/2009 Other reaction(s): Rash/Dermatitis She notes skin rash on hands when using latex gloves, although she continues to use them Lisinopril 12/08/2010 Other reaction(s): Other (see comments) cough Reading 05/21/2006 Medications Medication Sig Dispensed Refills Start [...] 70 08/28/2023 1:37 PM EDT Temperature 36.1 C (97 F) 08/28/2023 1:37 PM EDT Respiratory Rate - [...] COVID-19 Vaccine ( season) 2023 02/14/2023, 08/16/2020 DTap / Tdap / Td (2 - Td or Tdap) 03/23/2024 03/23/2014 Influenza Vaccine (#1) 2024 , 02/21/2021, 02/06/2020, Additional history exists RSV Adult > 60+ Yrs or (1 [...] age to complete this topic Care Teams Manager State Relationship Specialty Start Date End Date Denzel Reyes [employer]BS [address] [place] [address] PCP - General Internal Medicine 10/26/22
[2024-11-11 13:54] VITALS: BMI 33.5
== END 2024-11-06 11:48 | disposition home or self-care (01) ==
LOC: HO.ENCR 11:24
PROVIDERS: Visit Provider Dietitian, Registered
DX: E11.9 Type 2 diabetes mellitus without complications (principal)

== ENCOUNTER → 2024-11-06 11:23 | Outpatient (BNVA) | payer MEDICARE, SELFPAY | PROVIDERS: Visit Provider Dietitian, Registered | DX: E11.9 Type 2 diabetes mellitus without complications (principal); Z79.84 Long term (current) use of oral hypoglycemic drugs | CPT/HCPCS: 97803 ==

== ENCOUNTER 2024-12-30 13:00 | Outpatient (AMB) | payer MEDICARE, SELFPAY ==
--- NOTE | 2024-12-30 13:15 | A.OFFVIS_ITS ---
VS Expanded 12/30/24 13:16 Height 5 ft 2 in Weight 183 lb 6.793 oz BMI 33.5 Intake Visit Reasons: T2DM Allergies lisinopril Adverse Reaction (Mild, Verified 11/07/22 14:33) Cough amoxicillin Adverse Reaction (Verified 11/07/22 14:33) Diarrhea Nutrition Presentation Details: Pt presents for MNT f/u for T2DM Pt reports doing well, was on vacation and is concerned regarding some weight gain (noted not weight gain since last nutrition visit!) B: oatmeal cereal with some milk L: 1/2 p.b sand and fruit d: dinner: salad/chicken, water snacks: yogurt w flaxseed or popcorn (skinny pop) Pt reports FBG ranges from 75-120 monitoring exercise at the gym 5 xwk (swimming) A1c at 6.4% in 10/2024 reports starting ozempic 0.25 mg/wk and on metformin 500 mg twice per day PFSH Medical History Achilles tendonitis, bilateral Back pain of lumbar region with sciatica Bilateral plantar fasciitis CKD (chronic kidney disease), stage III Depression with anxiety HTN (hypertension) Psychiatric pseudoseizure Social History Household Members: Spouse Housing: House Do you presently have visiting nurse or other home services: No Patient Tobacco Use Status: Never used Tobacco Second Hand Smoke Exposure: No Sexual orientation: Straight/Heterosexual Assessment & Plan Assessment & Plan (1) T2DM (type 2 diabetes mellitus): Code(s): E11.9 - Type 2 diabetes mellitus without complications Category: Medical Plan: Wt: 85 Kg ( 07/22 ), 84 kg (08/22), 83 kg (11/21), 12/22 Est kcal needs as per MSJ: 1600 1800 (40% carb, 30% protein/fat) Est fluid needs as per 25-30 ml/d: 2500 Est prot per day as per 1 g/kg bw: 80 Recommend fiber intake : 8-10 g per day and gradually increase to 25-28 g per day for women and 35-38 g for men or as tolerated Recommend sodium intake per day : less than 2000 mg Educated patient on: ( R = reviewed V = verbalizes understanding N/R = needs review N/A = not applicable * Food sources of carbohydrate, adequate serving sizes and its role in various health conditions: R * Differences between complex carbohydrates a simple carbohydrates, role of fiber in diet: R * Lean protein sources of foods: R * Differences between types of fats and role in diet (mono on saturated fat fatty acids, saturated fatty acids, trans fats): R general low fat * Food sources of sodium in salt and healthy modifications for heart health in kidney health: R * Vitamins and minerals: R * Healthy plate method concept: R V * Physical activity: Benefits a precaution: R * Hypoglycemia protocol (rule of 15): R V N/R * Dietary prevention of Hyperglycemia: R Patient Instructions: Continue working on choosing low fat food options (less oils/butter, gravies/fried foods) Try hearts of palm, spaghetti squash as wheat noodle replacements Coding Level of Care Code Nutr Indiv Subseq (62380) Diagnoses T2DM (type 2 diabetes mellitus) E11.9 Time Spent (min) 30
[2024-12-30 13:16] VITALS: BMI 33.5
--- OUTSIDE RECORDS SUMMARY | 2024-12-30 14:20 | XMS_ITS | Clinical Summary ---
Author Organization [employer] Address [address] [facility] [address] [place] [address] Care Team Providers Care Earth Science Teacher Name Role Phone Unavailable Primary Care Provider [...] Zoster Vaccines (2 of 2) 04/12/2022 02/15/2022 DTaP/Tdap/Td Vaccines (2 - Td or Tdap) 03/23/2024 03/23/2014, 06/21/2004 COVID-19 Vaccine (3 - season) 2024 02/14/2023, 03/16/2022 Influenza Vaccine (#1) 2024 , 01/28/2022, 02/21/2021, [...] patient's age to complete this topic Insurance [facility] MEDICARE REPLACEMENT
--- OUTSIDE RECORDS SUMMARY | 2024-12-30 14:20 | XMS_ITS | Clinical Summary ---
Author Organization [facility] Address [address] [address] Phone Care Team Providers Care Wood Heel Attacher Name Role Phone Denzel Reyes Primary Care Provider [phone] Allergies Active Allergy Reactions Criticality Noted Date Comments Aloe Vera Other (see comments) 10/25/2020 Lisinopril Other (see comments) 10/25/2020 [place] (Diagnostic) Other (see comments) Medications Acetaminophen Extra [...] time each day 30 tablet 11 4 Active Additional Information Patient taking differently:50 mg [...] Encounters Date Type Department Care Team Description 11/28/2024 Orders Only [facility] [address] [address] Arline Jane ARNP Stage 3b chronic kidney disease (HCC); Hypertension from Last 3 Months Immunizations Immunization Administration Dates Next Due Influenza TIV (IM) [...] Visit [facility] [address] [address] Arline Jane ARNP [address] [address] Health Maintenance Due Date Last Done Comments Breast Cancer Screening 1962 Pneumococcal Vaccine: 50+ Years (1 of 2 - PCV) 1981 Colorectal Cancer Screening: Annual FOBT 2011 Colorectal Cancer Screening: Colonoscopy 2011 Colorectal Cancer Screening: Sigmoidoscopy 2011 Diabetes: Ophthalmology Exam 03/07/2022 Diabetes: Pedal Pulse Checked 03/07/2022 Diabetes: Sensory Foot Exam 03/07/2022 Diabetes: Visual Foot Exam 03/07/2022 Influenza Vaccine (#1) 2024 4, 02/14/2023, 02/01/2023, Additional history exists Diabetes: Hemoglobin A1C 02/07/2025 025, 08/04/2024, 05/27/2024 Hepatitis B Vaccine Aged Out No longe r eligible based on patient's age to complete this topic Procedures Procedure Name Priority Date/Time Associated Diagnosis Comments MAGNESIUM Routine 12/11/2024 2:31 PM EDT Stage 3b chronic kidney disease (HCC) Hypertension VITAMIN D 25 HYDROXY Routine 12/11/2024 2:31 PM EDT Stage 3b chronic kidney disease (HCC) Hypertension URINE ALBUMIN / CREATININE RATIO Routine 12/11/2024 2:31 PM EDT Stage 3b chronic kidney disease (HCC) Hypertension PROTEIN / CREATININE RATIO, URINE Routine 12/11/2024 2:31 PM EDT Stage 3b chronic kidney disease (HCC) Hypertension CBC Routine 12/11/2024 2:31 PM EDT Stage 3b chronic kidney disease (HCC) Hypertension RENAL FUNCTION PANEL Routine 12/11/2024 2:31 PM EDT Stage 3b chronic kidney disease (HCC) Hypertension PTH, INTACT Routine 12/11/2024 2:31 PM EDT Stage 3b chronic kidney disease (HCC) Hypertension from Last 3 Months Results * Urine Protein / creatinine ratio (12/11/2024 2:31 PM EDT) Creatinine, Ur 131.3 Not Estab. mg/dL [facility] Protein, Ur 22.1 Not Estab. mg/dL [facility] Urine Protein/Creatin ine Ratio 168 0 - 200 mg/g creat [facility] Urine specimen (specimen) Urine specimen obtained by clean catch procedure / Unknown 12/11/2024 2:31 PM EDT 12/11/2024 [facility] LAB URINE ORDERABLES Final Result [email or web address] [address] [place] [address] * Urine Albumin / Creatinine Ratio (12/11/2024 2:31 PM EDT) Albumin, Urine 7.3 Not Estab. ug/mL [facility] Albumin/Creatin ine Ratio 6 0 - 29 mg/g creat [facility] Comment: Normal: 0 - 29 Moderately increased: 30 - 300 Severely increased: >300 Urine specimen (specimen) Urine specimen obtained by clean catch procedure / Unknown 12/11/2024 2:31 PM EDT 12/11/2024 [facility] LAB URINE ORDERABLES Final Result [email or web address] [address] [place] [address] * Vitamin D 25 hydroxy (12/11/2024 2:31 PM EDT) Vitamin D, 25-OH, Total 36.0 30.0 - 100.0 ng/mL [facility] Comment: Vitamin D deficiency has been defined by the [place] of Medicine and an Endocrine Society practice guideline as a level of serum 25-OH vitamin D less than 20 ng/mL (1,2). The Endocrine Society went on to further define vitamin D insufficiency as a level between 21 and 29 ng/mL (2). 1. IOM ([place] of Medicine). 2010. Dietary reference intakes for calcium and D. [place]: The National Academies Press. 2. Peg MF, Kasey VALADEZ, Ely DSOUZA, et al. Evaluation, treatment, and prevention of vitamin D deficiency: an Endocrine Society clinical practice guideline. JCEM. 2010; 96(7):1911-30. Blood specimen (specimen) Venous blood / Unknown 12/11/2024 2:31 PM EDT 12/11/2024 Arline Jane [facility] LAB BLOOD ORDERABLES Final Result [email or web address] [address] [place] [address] * (ABNORMAL) CBC (12/11/2024 2:31 PM EDT) WBC 6.9 3.4 - 10.8 x10E3/uL [facility] RBC 4.08 3.77 - 5.28 x10E6/uL [facility] Hemoglobin 11.7 11.1 - 15.9 g/dL [facility] Hematocrit 37.5 34.0 - 46.6 % [facility] MCV 92 79 - 97 fL [facility] MCH 28.7 26.6 - 33.0 pg [facility] MCHC 31.2(L) 31.5 - 35.7 g/dL [facility] RDW 13.8 11.7 - 15.4 % [facility] Platelets 294 150 - 450 x10E3/uL [facility] Blood specimen (specimen) Venous blood / Unknown 12/11/2024 2:31 PM EDT 12/11/2024 Arline [facility] LAB BLOOD ORDERABLES Final Result [facility] [address] [place] [address] * PTH, intact (12/11/2024 2:31 PM EDT) PTH 64 15 - 65 pg/mL [facility] Blood specimen (specimen) Venous blood / Unknown 12/11/2024 2:31 PM EDT 12/11/2024 Arline [facility] LAB BLOOD ORDERABLES Final Result [facility] [address] [place] [address] * Magnesium (12/11/2024 2:31 PM EDT) Magnesium 1.8 1.6 - 2.3 mg/dL [facility] Blood specimen (specimen) Venous blood / Unknown 12/11/2024 2:31 PM EDT 12/11/2024 Arline [facility] LAB BLOOD ORDERABLES Final Result [facility] [address] [place] [address] * (ABNORMAL) Renal function panel (12/11/2024 2:31 PM EDT) Glucose 87 70 - 99 mg/dL [facility] BUN 15 8 - 27 mg/dL [facility] Creatinine 1.34(H) 0.57 - 1.00 mg/dL [facility] eGFR CKD-EPI CR 2020 45(L) >59 mL/min/1.7 3 [facility] BUN/Creatinine Ratio 11(L) 12 - 28 [facility] Sodium 140 134 - 144 mmol/L [facility] Potassium 4.6 3.5 - 5.2 mmol/L [facility] Chloride 104 96 - 106 mmol/L [facility] Bicarbonate (CO2) 19(L) 20 - 29 mmol/L [facility] Calcium 9.6 8.7 - 10.3 mg/dL [facility] Albumin 4.5 3.9 - 4.9 g/dL [facility] Phosphorus 2.8(L) 3.0 - 4.3 mg/dL [facility] Blood specimen (specimen) Venous blood / Unknown 12/11/2024 2:31 PM EDT 12/11/2024 Arline HNERY LAB BLOOD ORDERABLES Final Result [facility] [address] [place] [address] from Last 3 Months Insurance [facility] Medicare [facility] Medicare Care Teams Wood Heel Attacher Relationship Specialty Start Date End Date Denzel Reyes [address] [place] [address] PCP - General 07/01/24
--- OUTSIDE RECORDS SUMMARY | 2024-12-30 14:20 | XMS_ITS | Encounter Summary ---
Author Organization [facility] Address [address] [place] [address] Care Team Providers Care Planer Setter Name Role Phone Denzel Reyes MD Primary Care Provider Encounter Details Date Type Department Care Team ([facility] Contact Info) Description 12/17/2024 Telephone Orthopedic Surgery - [place] [address] [address] Severo Morrell, DPM [address] [phone] Social History Tobacco Use Types Packs/Day Years [...] for your loved ones. For example, child welfare assistant or elderly care for an older adult? [...] as of this encounter Progress Notes * Ashlie Reveles - 12/24/2024 5:09 PM EDT Will need to call to other pharm in the area to check on stock. This will be handled on Sunday * Marlen Mcmullen - 12/17/2024 2:23 PM EDT Pt came into office at 1424 stating pharmacy can't fill dexAMETHasone (DECADRON) 4 mg/mL injection,they are out of stock. Pt needs an alternative. Please provide & notify pt. Thank you. documented in this encounter Plan of Treatment Upcoming Encounters Date Type Department Care Team (Late st Contact Info) Description 12/31/2024 1:30 PM EDT Treatment [facility] - [place] 175 [facility] [address] [place] [phone] Raoul Hsieh, PT 175 [place] [address] 02/11/2025 9:15 AM EDT Office Visit Orthopedic Surgery - [place] [address] [phone] Severo Morrell, DPM [address] [phone] 03/04/2025 1:15 PM EST Office Visit Adult Medicine [address] [phone] Denzel Reyes MD [address] [place] [address] 08/11/2025 11:20 AM EDT Appointment Radiology Department - [address] [phone] documented as of this encounter Goals Goal Patient Goal Type Associated Problems Recent Progress Patient-Stated? Author NO pain General Yes Raoul Hsieh, PT PT STG x 8 visits from eval 11/19/2024 General No Raoul Hsieh, PT Note: [x] = goal MET [] = goal NOT MET [] Pt will report a 2/10 average pain level decrease [] Pt will be able to present with symmetrical WB x 5 min (30 sec at eval) [] Pt will improve active DF to -3 deg PT LTG x 15 visits from eval 11/19/2024 General No Raoul Hsieh, PT Note: [x] = goal MET [] = goal NOT MET [] Pt will be able to ambulate >1 hrs to allow shopping [] Pt will wake <3 x/wk due to achilles pain documented as of this encounter Visit Diagnoses Not on filedocumented in this encounter Additional Health Concerns Assessment Noted Time PHQ-9 Depression Total Score: 0 12/02/19 25 3:33 PM EDT documented as of this encounter Care Teams Planer Setter Relationship Specialty Start Date End Date Denzel Reyes MD [address] [place] [address] PCP - General 10/26/22 documented as of this encounter
--- OUTSIDE RECORDS SUMMARY | 2024-12-30 14:20 | XMS_ITS | Encounter Summary ---
Author Organization [facility] Address [address] [place] [address] Phone Care Team Providers Care Collections Officer Name Role Phone Denzel Reyes Primary Care Provider [phone] Encounter Details Date Type Department Care Team (Late Contact Info) Description 10/25/2020 Orders Only [facility] [address] [place] [address] Provider, MD Biju Social History [...] Visit [facility] [address] [facility] [address] [place] [address] Arline Jane ARNP [address] [facility] [address] [place] [address] documented as of this encounter Procedures Procedure Name Priority Date/Time Associated Diagnosis Comments EXT RESULT ENTRY Routine 05/25/2020 documented in this encounter Results * EXT RESULT ENTRY (05/25/2020) us Historical Provider LAB BLOOD ORDERABLES Eloise l Result documented in this encounter Visit Diagnoses Not on filedocumented in this encounter Care Teams Collections Officer Relationship Specialty Start Date End Date Denzel Reyes [address] [place] [address] PCP - General 07/01/24 documented as of this encounter
--- OUTSIDE RECORDS SUMMARY | 2024-12-30 14:20 | XMS_ITS | Clinical Summary ---
Author Organization [facility] [address] [place] [address] [place] [phone] Phone Care Team Providers Care Surgical Processor Name Role Phone Denzel Reyes MD Primary [...] cough Other reaction(s): Other (see comments) cough [place] 05/21/2006 Medications gabapentin (NEURONTIN) 400 mg capsule [...] hyperglycemia, without long-term current use of insulin ([facility] V24, [facility] V28),Type 2 diabetes mellitus with obesity ([facility] V24, [facility] V28) Use daily or as directed for monitoring of diabetes. 1 each 5 Active glucose blood test stripIndicatio ns:Type 2 diabetes mellitus with hyperglycemia, without long-term current use of insulin ([facility] V24, [facility] V28),Type 2 diabetes mellitus with obesity ([facility] V24, [facility] V28) Check blood glucose daily. Freestyle strips 100 strip 1 5 Active lancets lancetsIndicat ions:Type 2 diabetes mellitus with hyperglycemia, without long-term current use of insulin ([facility] V24, [facility] V28),Type 2 diabetes mellitus with obesity ([facility] V24, [facility] V28) Use to check blood glucose daily 100 each 1 5 Active spironolactone (ALDACTONE) 50 mg tablet Take [...] or split. 180 each 3 5 Active Ozempic 0.25 mg or 0.5 mg(2 mg/1.5 mL) injection pen Inject 0.25 mg under the skin every 7 (seven) days. 4 Pen 5 Active losartan (COZAAR) 50 mg tablet Take 1 tablet (50 mg total) by mouth 2 (two) times a day. 180 each 1 5 Active atorvastatin (LIPITOR) 20 mg tablet Take 1 tablet (20 mg total) by mouth 1 (one) time each day. 90 each 1 5 Active losartan (COZAAR) 50 mg tablet Take 1 tablet (50 mg total) by mouth 2 (two) times a day. 180 each 1 5 12/06/19 25 Discontinu ed(Reorder ) atorvastatin (LIPITOR) 20 mg tablet Take 1 tablet (20 mg total) by mouth 1 (one) time each day. 30 each 5 5 12/06/19 25 Discontinu ed(Reorder ) Active Problems Problem Noted Date Diagnosed Date Type 2 diabetes mellitus wit h obesity ([facility] V24, [facility] V28) 05/30/2024 Proteinuria 01/02/2024 Mixed hyperlipidemia 03/16/2023 Major depressive disorder wi th psychotic features ([facility] V24, [facility] V28) 10/20/2022 Localized edema 10/18/2022 Syncope 10/13/2022 Hypertensive renal disease 10/25/2020 Hypokalemia 10/25/2020 Chronic right-sided low back pain without sciati ca 06/23/2020 PTSD (post-traumatic stress disorder) 06/23/2020 Suicide attempt ([facility] V24, [facility] V28) 06/23 Overview (04/07/2024): 04/2020, medication overdose. Now s/p partial hospitalization program through [facility] Onychomycosis 10/05/2019 CKD (chronic kidney disease) stage 3, GFR 30-59 ml/min ([facility] V24, [facility] V28) 11/06/2018 Anxiety 06/02/2013 Dissociative identity disorder ([facility] V24, [facility] V28) 06/02/2013 Obesity 01/21/2012 Bulimia nervosa 10/19/2009 Tremor, unspecified 10/11/2006 Overview (04/07/2024): on amantadine Depressive disorder 05/21/2006 Hypertension 04/26/2005 Obstructive sleep apnea 04/26/2005 Overview (04/07/2024): On CPAP since ~ 200606/01/2004: AHI [address]. [facility] Polysomnogram treatment study. Date 04/21/2019. Wt 157#; [...] Diagnosed Date Resolved Date Newly diagnosed diabetes ([facility] V24, [facility] V28) 05/30/2024 09/10/2024 Type 2 diabetes mellitus wit h hyperglycemia, without long-term current use of insulin ([facility] V24, [facility] V28) 05/30/2024 09/10/2024 Prediabetes 02/10/2022 09/10/2024 Encounters Date Type Department Care Team Description 12/24/2024 1:30 PM EDT Treatment [facility] [address] [phone] Raoul Hsieh, PT Tendonitis, Achilles, left (Primary Dx) 12/22/2024 1:30 PM EDT Treatment [facility] [address] [phone] Dany Valles, TRIAL MGR Tendonitis, Achilles, left (Primary Dx) 12/17/2024 2:00 PM EDT Treatment [facility] [address] [phone] Dany Valles, TRIAL MGR Tendonitis, Achilles, left (Primary Dx) 12/17/[address] [facility] 250 175 [facility] 250 [place] [phone] Severo Morrell, DPM 12/11/2024 1:30 PM EDT Treatment [facility] [address] [phone] Jordan Irby, TRIAL MGR Tendonitis, Achilles, left (Primary Dx) 12/09/2024 1:30 PM EDT Treatment [address] [phone] KaelEverton, TRIAL MGR Tendonitis, Achilles, left (Primary Dx) 12/02/2024 10:00 AM EDT Treatment [address] [phone] Hai, Dany, TRIAL MGR Tendonitis, Achilles, left (Primary Dx) 12/01/2024 3:30 PM EDT Office Visit Adult Medicine [address] [phone] Denzel Reyes MD Type 2 diabetes mellitus with obesity ([facility] V24, [facility] V28) (Primary Dx); Type 2 diabetes mellitus with stage 3b chronic kidney disease, with long-term current use of insulin ([facility] V24, [facility] V28); Hypertension, unspecified type; Mixed hyperlipidemia 11/19/2024 11:45 AM EDT Evaluation [address] [phone] Raoul Hsieh, PT Tendonitis, Achilles, left 11/07/2024 10:30 AM EDT Office Visit Orthopedic[address] [phone] Tristen Tavarez PA Primary osteoarthritis of both knees (Primary Dx) 10/20/2024 10:30 AM EDT Office Visit Orthopedic Surgery [facility] [address] [phone] Severo Morrell, DPM Tendonitis, Achilles, left (Primary Dx) 10/10/2024 9:30 AM EDT Office Visit [address] [phone] Tristen Tavarez PA Primary osteoarthritis of both knees (Primary Dx) from Last 3 Months Immunizations Name Administration Dates Next Due COVID-19 (V[employer] Intelligence[employer]y) 12yo and older 02/01/2023 Influenza Quadravalent, MDCK [...] trivalent, recombi nant, 0.5mL, preservative free (Flublok) 9yo and older 01/19/2024 Influenza trivalent, with preservative [...] Hypertensive renal disease 10/25/2020 Newly diagnosed diabetes ([facility] V24, [facility] V28) 05/30/2024 Type 2 diabetes mellitus wit h hyperglycemia, without long-term current use of insulin ([facility] V24, [facility] V28) 05/30/2024 Family History Medical History Relation [...] for your loved ones. For example, children's lunchroom supervisor or elderly care for an older [...] Sign Reading Time Taken Comments Blood Pressure 107/59 12/01/2024 3:30 PM EDT Pulse 90 12/01/2024 3:30 PM EDT Temperature 36.4 C (97.6 F) 12/01/2024 3:30 PM EDT Respiratory Rate 15 12/01/2024 3:30 PM EDT Oxygen Saturation 94% 12/01/2024 3:30 PM EDT Inhaled Oxygen Concentration - - Weight 83.6 kg (184 lb 6.4 oz) 12/01/2024 3:30 P M EDT Height 157.5 cm (5' 2 ) 12/01/2024 3:30 PM EDT Body Mass Index 33.73 12/01/2024 3:30 PM EDT Plan of Treatment Upcoming Encounters Date Type Department Care Team (Late st Contact Info) Description 12/31/2024 1:30 PM EDT Treatment [facility] [address] [phone] Raoul Hsieh, PT 175 [place] [address] 02/11/2025 9:15 AM EDT Office Visit Orthopedic Surgery [facility] [address] [phone] Severo Morrell, DPM [address] [phone] 03/04/2025 1:15 PM EST Office Visit Adult Medicine [facility] - [address] [phone] Denzel Reyes MD [address] [place] [address] 08/11/2025 11:20 AM EDT Appointment Radiology Department - [address] [phone] Health Maintenance Due Date Last Done Comments Diabetes: Annual Retina Eye Exam 02/20/1970 RSV Immunization Adult Patients (1 - Risk 60-74 years 1-dose series) 2022 COVID-19 Vaccine (8 - Pfizer risk season) 2024 06/02/2024, 02/14/2023, 02/01/2023, Additional history exists Influenza Vaccine (#1) 2024 , 02/14/2023, 02/01/2023, Additional history exists Diabetes: Blood Sugar Control Test (HGBA1C) 05/10/2025 11/07/2024, 08/04/2024, 05/27/2024, Additional history exists Social Influencers of Health Screening 05/27/2025 05/27/2024 Diabetes: Annual Foot Exam 05/30/2025 05/30/2024 Diabetes: Annual GFR (Glomerular Filtration Rate) 11/07/2025 11/07/2024, 08/04/2024, 05/27/2024, Additional history exists Hypertension/CHF/CAD Annual BMP Blood Test 11/07/2025 11/07/2024, 08/04/2024, 05/27/2024, Additional history exists Diabetes: Annual Urine Albumin-Creatinine Ratio (uACR) 12/11/2025 12/11/2024, 11/07/2024, 05/30/2024, Additional history exists Breast Cancer Screening 08/04/2026 08/05/19, 07/25/2023, 07/18/2022, Additional history exists Medicare Annual Wellness Visit 02/20/2028 Postponed from 04/08/2022 (Not clinically appropriate to address at this time) Cholesterol Screening (Lipid Panel) 11/07/2029 11/07/2024, 08/04/2024, 05/27/2024, Additional history exists Colorectal Cancer Screening: Colonoscopy 06/09/2032 06/09/2022 DTaP,Tdap,and Td Vaccines (4 - Td or Tdap) 07/09/2034 07/09/2024, 03/23/2014, 06/21/2004 MMR Vaccines Aged Out 05/28/2006 No longer eligi ble based on patient's age to complete this topic Hepatitis C Screening Completed 07/12/2015 Zoster Vaccines Completed 02/15/2022, 02/28, 01/06/2021 Pneumococcal Vaccine: 50+ Years Completed 07/09/2024 Depression Screening Completed 12/01/2024 HIB Vaccines Aged Out No longer eligi [...] on patient's age to complete this topic Goals Goal Patient Goal Type Associated Problems Recent Progress Patient-Stated? Author NO pain General Yes Raoul Hsieh, PT PT STG x 8 visits from [facility] 11/19/2024 General No Raoul Hsieh, PT Note: [x] = goal MET [] = goal NOT MET [] Pt will report a 2/10 average pain level decrease [] Pt will be able to present with symmetrical WB x 5 min (30 sec at eval) [] Pt will improve active DF to -3 deg PT LTG x 15 visits from [facility] 11/19/2024 General No Raoul Hsieh, PT Note: [x] = goal MET [] = goal NOT MET [] Pt will be able to ambulate >1 hrs to allow shopping [] Pt will wake <3 x/wk due to achilles pain Procedures Procedure Name Priority Date/Time Associated Diagnosis Comments LIPID PANEL WITH REFLEX TO DIRECT LDL Routine 11/07/2024 10:48 AM EDT Type 2 diabetes mellitus with stage 3b chronic kidney disease, with long-term current use of insulin ([facility] V24, [facility] V28) Mixed hyperlipidemia MICROALBUMIN CREATININE URINE RATIO Routine 11/07/2024 10:48 AM EDT Type 2 diabetes mellitus with stage 3b chronic kidney disease, with long-term current use of insulin ([facility] V24, [facility] V28) COMPREHENSIVE METABOLIC PANEL Routine 11/07/2024 10:48 AM EDT Type 2 diabetes mellitus with stage 3b chronic kidney disease, with long-term current use of insulin ([facility] V24, [facility] V28) HEMOGLOBIN A1C Routine 11/07/2024 10:48 AM EDT Type 2 diabetes mellitus with stage 3b chronic kidney disease, with long-term current use of insulin ([facility] V24, [facility] V28) PARATHYROID HORMONE INTACT Routine 11/07/2024 10:48 AM EDT Type 2 diabetes mellitus with stage 3b chronic kidney disease, with long-term current use of insulin ([facility] V24, [facility] V28) VITAMIN D 25 HYDROXY Routine 11/07/2024 10:48 AM EDT Stage 3b chronic kidney disease ([facility] V24, [facility] V28) Type 2 diabetes mellitus with stage 3b chronic kidney disease, with long-term current use of insulin ([facility] V24, [facility] V28) Encounter for vitamin deficiency screening [place] ARTHROCENTESIS/ASPIRA TION/INJECTION MAJOR JOINT/BURSA W/O U/S GUIDANCE Routine 10/10/2024 9:30 AM EDT Primary osteoarthritis of both knees MG MAMMO DIGITAL SCREENING W TAY BILAT Routine 08/04/2024 11:29 AM EDT Encounter for screening mammogram for breast cancer HM COLONOSCOPY Routine 06/09/2022 HEPATITIS C SCREENING Routine 07/12/2015 from Last 3 Months or Most Recently Relevant to Health Maintenance Results * (ABNORMAL) Lipid panel with reflex to direct LDL (11/07/2024 10:48 AM EDT) Cholesterol 127 0 - 200 mg/dL LAB CHEMISTRY METHOD 11/07/2024 4:04 PM EDT [facility] Triglycerides 152(H) 0 - 150 mg/dL LAB CHEMISTRY METHOD 11/07/2024 4:04 PM EDT [facility] HDL 48 >=40 mg/dL LAB CHEMISTRY METHOD 11/07/2024 4:04 PM EDT [facility] LDL Calculated 49 0 - 100 mg/dL LAB CHEMISTRY METHOD 11/07/2024 4:04 PM EDT [facility] VLDL Cholesterol Ron 30.4 mg/dL LAB CHEMISTRY METHOD 11/07/2024 4:04 PM EDT [facility] Non HDL Chol. (LDL+VLDL) 79 <145 mg/dL LAB CHE[facility]STRY [facility] Chol/HDL Ratio 2.6 0.0 - 4.4 LAB CHEMISTRY METHOD 11/07/2024 4:04 PM T [facility] Blood Venous blood specimen / Unknown Venipuncture / Unknown 11/07/2024 10:48 AM EDT 11/07/2024 10:48 AM EDT us Denzel Reyes MD LAB BLOOD ORDERABLES F inal Result [facility] [address] [place] [address], * Microalbumin creatinine urine ratio (11/07/2024 10:48 AM EDT) Creatinine, Urine 205.0 mg/dL LAB CHEMISTRY METHOD 11/07/2024 1:09 PM [facility] Microalb, Ur 11.7 0.0 - 29.0 mg/L LAB CHEMISTRY METHOD 11/07/2024 1:09 PM EDT [facility] Microalb/Creat Ratio 6 <30 mg/g creat LAB CHEMISTRY METHOD 11/07/2024 1:09 PM EDT [facility] Urine Urine specimen obtained by clean catch procedure / Unknown Non-blood Collection / Unknown 11/07/2024 10:48 AM EDT 11/07/2024 10:48 AM EDT us Denzel Reyes MD LAB URINE ORDERABLES F inal Result Performing Organization Address [facility] Co de Phone Number [facility] [address] [place] [address], [place] [phone] * Vitamin D 25 hydroxy (11/07/2024 10:48 AM EDT) Vit D, 25-Hydroxy 33.3 30.0 - 80.0 ng/mL LAB CHEMISTRY METHOD 11/07/2024 4:28 PM EDT [facility] Blood Venous blood specimen / Unknown Venipuncture / Unknown 11/07/2024 10:48 AM EDT 11/07/2024 10:48 AM EDT us Denzel Reyes MD LAB BLOOD ORDERABLES F inal Result Performing Organization Address [facility] de Phone Number [facility] [address] [place] [address], [place] [phone] * Parathyroid hormone intact (11/07/2024 10:48 AM EDT) PTH 63.9 18.5 - 88.0 pcg/mL LAB CHEMISTRY METHOD 11/07/2024 4:28 PM EDT [facility] Blood Venous blood specimen / Unknown Venipuncture / Unknown 11/07/2024 10:48 AM EDT 11/07/2024 10:48 AM EDT us Denzel Reyes MD LAB BLOOD ORDERABLES F inal Result Performing Organization Address [facility]/ZIP Co de Phone Number [facility] [address] [place] [address], * (ABNORMAL) Hemoglobin A1c (11/07/2024 10:48 AM EDT) [facility] Hemoglobin A1C 6.7(H) <6.5 % LAB CHEMISTRY METHOD 11/07/2024 9:28 PM EDT [facility] Mean Bld Glu Estim. 146 mg/dL LAB CHEMISTRY METHOD 11/07/2024 9:28 PM EDT [facility] Blood Venous blood specimen / Unknown Venipuncture / Unknown 11/07/2024 10:48 AM EDT 11/07/2024 10:48 AM EDT Denzel Reyes MD LAB BLOOD ORDERABLES F inal Result Performing Organization Address [facility]/ZIP Co de Phone Number [facility] [address] [place] [address], [place] [phone] * (ABNORMAL) Comprehensive metabolic panel (11/07/2024 10:48 AM EDT) [facility] Sodium 139 133 - 145 mmol/L LAB CHEMISTRY METHOD 11/07/2024 4:04 PM [facility] Potassium 4.8 3.5 - 5.5 mmol/L LAB CHEMISTRY METHOD 11/07/2024 4:04 PM EDT [facility] Chloride 108 96 - 110 mmol/L LAB CHEMISTRY METHOD 11/07/2024 4:04 PM [facility] CO2 24 21 - 32 mmol/L LAB CHEMISTRY METHOD 11/07/2024 4:04 PM T [facility] Anion Gap 7 3 - 11 LAB CHEMISTRY METHOD 11/07/2024 4:04 PM EDT [facility] Glucose 101(H) 70 - 100 mg/dL LAB CHEMISTRY METHOD 11/07/2024 4:04 PM [facility] BUN 16 5 - 25 mg/dL LAB CHEMISTRY METHOD 11/07/2024 4:04 PM [facility] Creatinine 1.49(H) 0.50 - 1.10 mg/dL LAB CHEMISTRY METHOD 11/07/2024 4:04 PM [facility] eGFR 40(L) >=60 mL/min/1. 73m2 LAB CHEMISTRY METHOD 11/07/2024 4:04 PM [facility] Comment:Calculation based on the Chronic Kidney Disease Epidemiology Collaboration (CKD-EPI) equation refit without adjustment for race. BUN/Creatinine Ratio 10.7 LAB CHEMISTRY METHOD 11/07/2024 4:04 PM [facility] Calcium 9.9 8.5 - 10.5 mg/dL LAB CHEMISTRY METHOD 11/07/2024 4:04 PM [facility] AST (SGOT) 23 10 - 42 unit/L LAB CHEMISTRY METHOD 11/07/2024 4:04 PM [facility] ALT (SGPT) 33 10 - 60 unit/L LAB CHEMISTRY METHOD 11/07/2024 4:04 PM [facility] Alkaline Phosphatase 117 42 - 121 unit/L LAB CHEMISTRY METHOD 11/07/2024 4:04 PM [facility] Total Protein 7.3 6.0 - 8.0 g/dL LAB CHEMISTRY METHOD 11/07/2024 4:04 PM [facility] Albumin 4.1 3.2 - 5.0 g/dL LAB CHEMISTRY METHOD 11/07/2024 4:04 PM [facility] Total Bilirubin 0.2 0.0 - 1.4 mg/dL LAB CHEMISTRY METHOD 11/07/2024 4:04 PM [facility] Blood Venous blood specimen / Unknown Venipuncture / Unknown 11/07/2024 10:48 AM EDT 11/07/2024 10:48 AM EDT Denzel Reyes MD LAB BLOOD ORDERABLES F inal Result [facility] [address] [place] [address], [place] [phone] * [place] ARTHROCENTESIS/ASPIRATION/INJECTION MAJOR JOINT/BURSA W/O U/S GUIDANCE (10/10/2024 9:30 AM EDT) Narrative Tristen Tavarez PA - 10/10/2024 9:30 AM EDT HENRY [...] with patient: Verbal Pre-procedure timeout performed: yes Tristen FIGUEROA IN CLINIC/BEDSIDE ORDERABLES Fin al [...] is recommended in 1 year. MAMMO LOCATION: [facility], [address] [place] [address], [id number], . -------- FINAL REPORT -------- Dictated By: Virginia Britton Dictated Date: 08/05/2024 13:52 ET Assigned Physician: Virginia Britton Reviewed and Electronically Signed By: Virginia Britton Signed Date: 08/05/2024 13:52 ET Workstation ID: [id number] Transcribed By: Self Edit Transcribed Date: 08/05/2024 [...] is recommended in 1 year. MAMMO LOCATION: [facility], [address] [place] [address], [id number], . -------- FINAL REPORT -------- Dictated By: Virginia Britton Dictated Date: 08/05/2024 13:52 ET Assigned Physician: Virginia Britton Reviewed and Electronically Signed By: Virginia Britton Signed Date: 08/05/2024 13:52 ET Workstation ID: [id number] Transcribed By: Self Edit Transcribed Date: 08/05/2024 13:52 ET Denzel Reyes MD IMG BI PROCEDURES Eloise l Result * Colonoscopy (06/09/2022) Colonoscopy abstracted, no interpretation Anatomical Region Laterality Modality Other Historical Provider HEALTH MAINTENANCE Final Result * Hepatitis C Screening (07/12/2015) Hepatitis C Screening abstracted Historical Provider HEALTH MAINTENANCE Final Result from Last 3 Months or Most Recently Relevant to Health Maintenance Insurance [employer] MEDICARE Advance Directives Documents on File Type Date Recorded 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
--- OUTSIDE RECORDS SUMMARY | 2024-12-30 14:20 | XMS_ITS | Clinical Summary ---
Author Organization [facility] Address [address] [place] [address] Care Team Providers Care Cotton Seed Culler Name Role Phone Denzel Reyes Primary Care Provid er Allergies Active Allergy Reactions Criticality Noted Date Comments Aloe Vera 10/25/2020 Other reaction(s): Other (see comments) Latex Medium 01/05/2009 Other reaction(s): Rash/Dermatitis She notes skin rash on hands when using latex gloves, although she continues to use them Lisinopril 12/08/2010 Other reaction(s): Other (see comments) cough Sapphire 05/21/2006 Medications Medication Sig Dispensed Refills Start [...] Shingrix-Zoster Vaccine (2 of 2) 04/12/2022 02/15/2022 DTap / Tdap / Td (2 - Td or Tdap) 03/23/2024 03/23/2014 COVID-19 Vaccine (3 - season) 2024 02/14/2023, 08/16/2020 Influenza Vaccine (#1) 2024 , 02/21/2021, 02/06/2020, [...] age to complete this topic Care Teams Cotton Seed Culler Relationship Specialty Start Date End Date Denzel Reyes MBBS [address] [place] [address] PCP - General Internal Medicine 10/26/22
== END 2024-12-30 13:39 | disposition home or self-care (01) ==
LOC: HO.ENCR 13:01
PROVIDERS: Visit Provider Dietitian, Registered
DX: E11.9 Type 2 diabetes mellitus without complications (principal)

== ENCOUNTER → 2024-12-30 13:00 | Outpatient (BNVA) | payer MEDICARE, SELFPAY | PROVIDERS: Visit Provider Dietitian, Registered | DX: E11.9 Type 2 diabetes mellitus without complications (principal); Z71.3 Dietary counseling and surveillance | CPT/HCPCS: 97803 ==